=== PATIENT | female | born 1935 | race Caucasian/White ===

== ENCOUNTER → 2017-11-08 08:14 | Outpatient (CLI) | payer OTHER, SELFPAY ==
[2017-11-08 09:52] LABS: Alanine Aminotransferase 32 IU/L (9-52); Albumin 4.2 g/dL (3.5-5.0); Albumin Globulin Ratio 1.4 (1.0-2.8); Alkaline Phosphatase 81 U/L (38-126); Aspartate Aminotransferase 23 IU/L (14-36); BUN Creatinine Ratio 22.2 (6-22); Bilirubin Total 0.9 mg/dL (0.2-1.3); Blood Urea Nitrogen 20 mg/dL (7-17); Calcium 9.5 mg/dL (8.4-10.2); Carbon Dioxide 28 mmol/L (22-32); Chloride 104 mmol/L (98-107); Cholesterol 160 mg/dL (140-199); Estimated Glomerular Filt Rate > 60.0 mL/min (>60); Globulin 3.1 g/dL (1.7-4.1); Glucose 101 mg/dL (80-110); HDL Cholesterol 50 mg/dL (40-60); HEMOLYSIS < 15 (0-50); LDL Cholesterol Calculated 84 mg/dL (<100); Potassium 4.5 mmol/L (3.4-5.1); Sodium 143 mmol/L (137-145); Total Protein 7.3 g/dL (6.3-8.2); Triglycerides 129 mg/dL (35-150)
== END ==
PROVIDERS: Visit Provider Internal Medicine
DX: R10.13 Epigastric pain (principal); I10 Essential (primary) hypertension; E78.00 Pure hypercholesterolemia, unspecified
CPT/HCPCS: 80053; 80061; 86677

== ENCOUNTER → 2018-09-06 08:48 | Outpatient (CLI) | payer OTHER, SELFPAY ==
--- NOTE | 2018-09-06 09:15 | DI.CT.S_ITS ---
PROCEDURE: CT ABDOMEN PELVIS W CON INDICATIONS: Rectal bleeding TECHNIQUE: After the administration of oral and intravenous contrast, 5 mm thick sections acquired from the diaphragms to the symphysis. 5 mm thick coronal and sagittal reformats were performed. For radiation dose reduction, the following was used: automated exposure control, adjustment of mA and/or kV according to patient size. COMPARISON: [facility], CT, ABDOMEN/PELVIS WITH CONTRAST, 03/09/2017, 9:31. FINDINGS: Image quality: Excellent. ABDOMEN: Lung bases: Lung bases are clear. Heart size is normal. Solid organs: Liver is normal in size. There is mild hepatic steatosis. Focal calcification inferior right hepatic lobe is seen suggestive of calcified granuloma. Gallbladder is within normal limits. Biliary system is non-dilated. Pancreas enhances normally. Spleen is normal in size and enhancement. No adrenal nodules. Kidneys are normal in size and enhancement, without hydronephrosis. Peritoneum and bowel: Stomach, small bowel, and colon loops are normal in caliber and wall thickness. There is questionable rectal wall thickening. No perirectal fat stranding. No obvious rectal wall mass is seen. No free fluid or air. There is a small hiatal hernia. Nodes and vessels: No retroperitoneal or mesenteric adenopathy. Aorta and inferior vena cava are normal in caliber. Miscellaneous: Small supraumbilical hernia containing fat only is seen. PELVIS: Genitourinary: Bladder wall thickness is normal. Miscellaneous: No inguinal hernias or adenopathy. Bones: No suspicious bony lesions. No vertebral body compression fractures. IMPRESSION: #1. Suggestion of rectal wall thickening, underlying rectal wall mass cannot be excluded. Direct visualization and clinical correlation is recommended given patient's history of rectal bleeding. #2. No other area of bowel wall thickening. No free fluid or free air. Small height hernia. #3. No abdominal or pelvic lymphadenopathy. Hepatic steatosis. Dictated by: Dane Britton M.D. on 09/06/2018 at 12:30 Approved by: Dane Britton M.D. on 09/06/2018 at 12:34
== END ==
PROVIDERS: Visit Provider Internal Medicine
DX: K62.5 Hemorrhage of anus and rectum (principal); K44.9 Diaphragmatic hernia without obstruction or gangrene; K76.0 Fatty (change of) liver, not elsewhere classified
CPT/HCPCS: 74177; Q9967

== ENCOUNTER → 2018-12-17 07:38 | Outpatient (CLI) | payer OTHER, SELFPAY ==
--- NOTE | 2018-12-17 08:48 | PM.TREADMILL ---
Cardiac Stress Test Report Referral & Results Date Patient Seen: 12/17/18 Time Patient Seen: 08:30 Requesting provider: Sophia Charles Indication: Chest discomfort Rest ECG: NSR Procedure Note: Today following both written and verbal informed consent the patient was exercised according to a standard Melecio protocol patient went for a total of 3 minutes 19 seconds achieving a maximum heart rate of 132 maximum systolic blood pressure of 182. This is approximately 4.6 METS. Exercise was terminated at this point because of dyspnea. Patient was also given Cardiolite through a previously started Hep-Lock IV by the database software technician approximately 1 minute prior to the cessation of exercise. ST deviations of 3 mm in multiple leads. Occasional PVCs Impression: High probability for ischemia. Summers treadmill score of -12 correlated with 65% survival over 5 years. Will await perfusion imaging. Please note: Actual ECG tracings can be found in the PACS system.
--- NOTE | 2018-12-17 08:51 | P.PCN_ITS ---
Cardiac Stress Test Report Referral & Results Date Patient Seen: 12/17/18 Time Patient Seen: 08:30 Requesting provider: Sophia Charles Indication: Chest discomfort Rest ECG: NSR Procedure Note: Today following both written and verbal informed consent the patient was exercised according to a standard Melecio protocol patient went for a total of 3 minutes 19 seconds achieving a maximum heart rate of 132 maximum systolic blood pressure of 182. This is approximately 4.6 METS. Exercise was terminated at this point because of dyspnea. Patient was also given Cardiolite through a previously started Hep-Lock IV by the nuclear medical tech approximately 1 minute prior to the cessation of exercise. ST deviations of 3 mm in multiple leads. Occasional PVCs Impression: High probability for ischemia. Summers treadmill score of -12 correlated with 65% survival over 5 years. Will await perfusion imaging. Please note: Actual ECG tracings can be found in the PACS system.
--- NOTE | 2018-12-18 14:10 | DI.NM.S_ITS ---
DATE OF SERVICE: 12/17/2018 PROCEDURE: Exercise perfusion study. INDICATIONS: Chest pain, jaw pain with underlying hypertension, hyperlipidemia. RADIOPHARMACEUTICAL: 26.1 mCi technetium-99m Myoview IV was injected at stress and 24.2 mCi technetium-99m Myoview IV was injected at rest. CARDIAC STRESS: Patient underwent exercise perfusion study under the supervision of an attending staff. She walked on Melecio protocol for total of 3 minutes 19 seconds achieved 96% of target heart rate, and normal blood pressure response. Patient developed dyspnea. There was enhance chronotropic response. Baseline EKG revealed sinus rhythm and baseline up to 0.5 mm slightly horizontal as well as slightly downsloping ST depression in inferiorly leads and lead V3 to V6. During stress, baseline ST-segment depression got more pronounced, up to 2 mm. No significant sustained arrhythmias seen. Intraventricular conduction delay seen. RAW DATA: There was adequate myocardial uptake. GATED STUDY: Stress LV ejection fraction 83%. No obvious wall motion abnormalities. Resting end-diastolic volume is 74 mL. No transient ischemic dilatation. TID ratio is 0.7, which is within normal limits. Lung/heart ratio is 0.22, which is within normal limits. MYOCARDIAL PERFUSION SCAN: Stress supine, resting supine images were compared to each other. Stress and resting supine images revealed normal myocardial perfusion. CONCLUSION: This is a normal myocardial perfusion study. Patient has poor exercise tolerance. She developed dyspnea during exertion. There was enhance chronotropic response. She achieved 4.6 METs of workload. Functional aerobic impairment positive 20%. She has baseline EKG changes as stated above which got more pronounced during exercise. No significant sustained arrhythmias seen. Correlate clinically. Tea Gould - GENE/zenon/ doc#: [id number]/job#: [id number] dd: 12/18/2018 12:57:00 dt: 12/18/2018 14:02:00 DICTATING MD/COPIES TO: Bebe Fatima MD COPIES MNE: ZHANE
== END ==
PROVIDERS: PCP Internal Medicine; Visit Provider Student in an Organized Health Care Education/Training Program
DX: R07.89 Other chest pain (principal); R68.84 Jaw pain; I10 Essential (primary) hypertension; E78.5 Hyperlipidemia, unspecified
CPT/HCPCS: 78452; 93016; 93017; 93018; A9502

== ENCOUNTER → 2018-12-30 07:41 | Outpatient (CLI) | payer OTHER, SELFPAY ==
--- NOTE | 2018-12-30 07:56 | DI.CT.S_ITS ---
PROCEDURE: CT CHEST WO CON INDICATIONS: COUGH TECHNIQUE: Noncontrast 5 mm thick sections acquired from the pulmonary apices to the posterior costophrenic angles. 1 mm lung window, 5 mm thick coronal and sagittal and 7 mm axial MIP reformats were then acquired. For radiation dose reduction, the following was used: automated exposure control, adjustment of mA and/or kV according to patient size. COMPARISON: None. FINDINGS: Image quality: Excellent. Lungs and pleura: No acute air space opacities. No pleural effusions or pneumothorax. Central and peripheral airways are patent and normal in caliber. Note is made of mild prominence of the soft tissues surrounding the bronchi consistent with mild chronic bronchitis. Mediastinum: Heart size is normal. No pericardial effusion. No mediastinal adenopathy by size criteria. Thoracic aorta and central pulmonary arteries are normal in size. Esophagus is normal in caliber. No hiatal hernia. Bones and chest wall: No suspicious bony lesions. No vertebral body compression fractures. No axillary or supraclavicular adenopathy by size criteria. Thyroid gland is not well-seen by this noncontrast CT technique. Abdomen: Visualized upper abdominal solid organs and bowel loops appear normal in the absence of contrast. IMPRESSION: Mild chronic bronchitis, no underlying evidence of alveolitis or pulmonary fibrosis, or bronchiectasis. Dictated by: Fernando Chavez M.D. on 12/30/2018 at 10:32 Approved by: Fernando Chavez M.D. on 12/30/2018 at 10:34
[2018-12-30 08:37] LABS: Alanine Aminotransferase 19 IU/L (9-52); Aspartate Aminotransferase 25 IU/L (14-36); BUN Creatinine Ratio 25.6 (6-22); Blood Urea Nitrogen 23 mg/dL (7-17); Calcium 9.4 mg/dL (8.4-10.2); Carbon Dioxide 27 mmol/L (22-32); Chloride 107 mmol/L (98-107); Cholesterol 150 mg/dL (140-199); Estimated Glomerular Filt Rate 59.8 mL/min (>60); Glucose 98 mg/dL (80-110); HDL Cholesterol 42 mg/dL (40-60); HEMOLYSIS < 15 (0-50); LDL Cholesterol Calculated 85 mg/dL (<100); Potassium 4.4 mmol/L (3.4-5.1); Sodium 140 mmol/L (137-145); Triglycerides 115 mg/dL (35-150)
== END ==
PROVIDERS: PCP Internal Medicine; Visit Provider Internal Medicine
DX: J42 Unspecified chronic bronchitis (principal); R05 Cough; I10 Essential (primary) hypertension; E78.00 Pure hypercholesterolemia, unspecified
CPT/HCPCS: 36415; 71250; 80048; 80061; 84450; 84460

== ENCOUNTER → 2019-03-11 08:01 | Outpatient (CLI) | payer OTHER, SELFPAY ==
[2019-03-11 10:53] LABS: Alanine Aminotransferase 15 IU/L (9-52); Aspartate Aminotransferase 24 IU/L (14-36); BUN Creatinine Ratio 27.8 (6-22); Blood Urea Nitrogen 25 mg/dL (7-17); Calcium 9.6 mg/dL (8.4-10.2); Carbon Dioxide 32 mmol/L (22-32); Chloride 103 mmol/L (98-107); Cholesterol 149 mg/dL (140-199); Estimated Glomerular Filt Rate 59.8 mL/min (>60); Glucose 90 mg/dL (80-110); HDL Cholesterol 43 mg/dL (40-60); HEMOLYSIS < 15 (0-50); LDL Cholesterol Calculated 69 mg/dL (<100); Potassium 4.3 mmol/L (3.4-5.1); Sodium 141 mmol/L (137-145); Triglycerides 186 mg/dL (35-150)
== END ==
PROVIDERS: PCP Internal Medicine; Visit Provider Internal Medicine
DX: I10 Essential (primary) hypertension (principal); E78.00 Pure hypercholesterolemia, unspecified
CPT/HCPCS: 36415; 80048; 80061; 84450; 84460

== ENCOUNTER → 2019-12-16 08:21 | Outpatient (CLI) | payer MEDICARE, SELFPAY ==
[2019-12-16 08:57] LABS: Blood Urea Nitrogen 26 mg/dL (7-17); Estimated Glomerular Filt Rate 50.5 mL/min (>60)
--- NOTE | 2019-12-16 09:25 | DI.CT.S_ITS ---
P S. ROCEDURE: CT ABDOMEN PELVIS W CON INDICATIONS: Abnormal findings on diagnostic imaging of other abd regions prior cat scan TECHNIQUE: After the administration of oral and intravenous contrast, 5 mm thick sections acquired from the diaphragms to the symphysis. 5 mm thick coronal and sagittal reformats were performed. For radiation dose reduction, the following was used: automated exposure control, adjustment of mA and/or kV according to patient size. COMPARISON: [facility], CT, CT CHEST WO CON, 12/30/2018, 8:37. [facility], CT, CT ABDOMEN PELVIS W CON, 09/06/2018, 9:40. [facility], CT, ABDOMEN/PELVIS WITH CONTRAST, 03/09/2017, 9:31. FINDINGS: Image quality: Excellent. ABDOMEN: Lung bases: Lung bases are clear. Heart size is normal. Small hiatal hernia. This Solid organs: Liver is normal in size and enhancement. Diffusely decreased hepatic attenuation as before suggestive of hepatic steatosis. Gallbladder is unremarkable. Biliary system is non-dilated. Pancreas enhances normally. There is a curvilinear hypodensity across the posterior, lateral margin of the spleen measuring approximately 2.6 cm in length and 6 mm thick. No adjacent perisplenic hematoma or inflammatory changes. Spleen is normal in size and enhancement. No adrenal nodules. Kidneys are normal in size and enhancement, without hydronephrosis. Peritoneum and bowel: Stomach, small bowel, and colon loops are normal in caliber and wall thickness. No free fluid or air. Previously described rectal wall thickening is not as conspicuous. Nodes and vessels: No retroperitoneal or mesenteric adenopathy. Scattered atherosclerotic calcifications of the abdominal aorta. Aorta and inferior vena cava are normal in caliber. There is narrowing of the origin of the celiac trunk without high-grade stenosis. Miscellaneous: No ventral hernias. PELVIS: Genitourinary: Bladder wall thickness is normal for degree of distention.. Miscellaneous: No inguinal hernias or adenopathy. Bones: No suspicious bony lesions. No acute vertebral body compression fractures. Multilevel spondylitic changes throughout the imaged spine. IMPRESSION: 1. No curvilinear splenic hypodensity without adjacent perisplenic fluid collections, hematomas, or inflammatory stranding. Findings may represent an age indeterminate splenic laceration, especially if there has been history of trauma. Recommend correlation with clinical history and examination for left-sided pain. 2. Hepatic steatosis. 3. Small hiatal hernia. 4. No evidence for bowel obstruction or acute inflammatory changes Dictated by: Freeman Hernandez M.D. on 12/16/2019 at 11:10 Approved by: Freeman Hernandez M.D. on 12/16/2019 at 12:14
== END ==
PROVIDERS: PCP Internal Medicine; Referring Provider Internal Medicine; Visit Provider Internal Medicine
DX: R93.5 Abnormal findings on diagnostic imaging of other abdominal regions, including retroperitoneum (principal); K59.01 Slow transit constipation; K44.9 Diaphragmatic hernia without obstruction or gangrene; K76.0 Fatty (change of) liver, not elsewhere classified
CPT/HCPCS: 36415; 74177; 82565; 84520; Q9967

== ENCOUNTER → 2020-03-10 18:33 | Outpatient (ROUT) | payer MEDICARE, SELFPAY | PROVIDERS: PCP Internal Medicine; Visit Provider Internal Medicine | DX: N39.0 Urinary tract infection, site not specified (principal) | CPT/HCPCS: 87086 ==

== ENCOUNTER → 2020-03-11 08:09 | Outpatient (CLI) | payer MEDICARE, SELFPAY ==
[2020-03-11 09:15] LABS: Alanine Aminotransferase 17 IU/L (<35); Albumin 3.9 g/dL (3.5-5.0); Albumin Globulin Ratio 1.3 (1.0-2.8); Alkaline Phosphatase 83 U/L (38-126); Aspartate Aminotransferase 25 IU/L (14-36); Bilirubin Total 0.8 mg/dL (0.2-1.3); Blood Urea Nitrogen 23 mg/dL (7-17); Calcium 9.1 mg/dL (8.4-10.2); Carbon Dioxide 31 mmol/L (22-32); Chloride 106 mmol/L (98-107); Cholesterol 150 mg/dL (140-199); Estimated Glomerular Filt Rate 55.4 mL/min (>60); Globulin 3.1 g/dL (1.7-4.1); Glucose 98 mg/dL (80-110); HDL Cholesterol 42 mg/dL (40-60); HEMOLYSIS < 15 (0-50); LDL Cholesterol Calculated 82 mg/dL (<100); Potassium 4.4 mmol/L (3.4-5.1); Sodium 141 mmol/L (137-145); Triglycerides 132 mg/dL (35-150)
== END ==
PROVIDERS: PCP Internal Medicine; Referring Provider Internal Medicine; Visit Provider Internal Medicine
DX: I10 Essential (primary) hypertension (principal); E78.00 Pure hypercholesterolemia, unspecified
CPT/HCPCS: 36415; 80053; 80061

== ENCOUNTER → 2020-08-16 09:56 | Outpatient (CLI) | payer MEDICARE, SELFPAY ==
--- NOTE | 2020-08-16 09:57 | DI.RAD.S_ITS ---
PROCEDURE: XR LUMBAR SPINE 2-3V INDICATIONS: low back pain TECHNIQUE: 3 views of the lumbar spine were acquired. COMPARISON: None. FINDINGS: Bones: 5 [id number] vertebrae are present. There is mild rightward scoliosis of thoracolumbar spine centered at T12-L1 level with compensatory mild rid levoscoliosis of lower lumbar spine centered at L4 level. Degenerative endplate changes are noted throughout lumbar spine. No vertebral body compression fractures. No suspicious bony lesions. Soft tissues: Overlying bowel gas pattern is normal. No suspicious soft tissue calcifications. 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 No acute compression fracture or spondylolisthesis. Dictated by: Dane Britton M.D. on 08/16/2020 at 10:19 Approved by: Dane Britton M.D. on 08/16/2020 at 10:31
== END ==
PROVIDERS: PCP Family Medicine; Referring Provider Family Medicine; Visit Provider Family Medicine
DX: M54.5 Low back pain (principal); M51.36 Other intervertebral disc degeneration, lumbar region; M41.9 Scoliosis, unspecified; G89.29 Other chronic pain
CPT/HCPCS: 72100

== ENCOUNTER 2020-10-22 08:15 | Outpatient (RCR) | payer MEDICARE, SELFPAY ==
--- NOTE | 2020-10-04 16:00 | PT.OIE ---
Current Diagnoses Sciatica, left side (10/04/20) Low back pain (10/04/20) Past Medical History (Last Reviewed 08/16/20 @ 09:48 by Sven Mattson DO) Allergies (~1989) Cataracts, bilateral Chicken pox (~1948) Chronic back pain Chronic cough (~2019) Endometriosis (~1969) Fractures Frequent UTI (~2016) Hearing loss History of recurrent ear infection History of squamous cell carcinoma History of urinary incontinence Hyperlipidemia Hypertension (~1994) Measles (~1939) Multiple sclerosis (~1970) Mumps (~1959) Preventative health care Reactive airway disease Recurrent sinusitis Squamous cell carcinoma (~2009) Vertigo Past Surgical History (Last Updated 08/15/20 @ 20:23 by Fadumo Cagle) Anesthesia History of bladder suspension procedure (~1983) History of removal of cyst (~1977) History of stress test (~2018) History of surgical removal of squamous cell carcinoma of skin of yarsanism region (~2009) Visit Care Team Role Provider Type Sven Mattson DO Attending Provider Physician Primary Care Provider Referring Provider Specialty: [facility] Address: [address] [place] [address], [facility] Email: [email or web address] Physical Therapy Initial Evaluation PT-OP-A Visit Information Start: 10/01/20 07:17 Freq: Status: Active Protocol: Document 10/04/20 08:16 MB (Rec: 10/04/20 08:34 MB [id number]) Out-Patient Physical Therapy Visit Information Visit Information Visit Type Initial Evaluation Visit Note [employer] Pt goes by Ana Visit Start Time 08:16 Visit Stop Time 08:52 Total Visit Minutes 36 Visit Number 1 Evaluation Information Evaluation Date 10/04/20 PT-OP-B Current Condition Start: 10/01/20 07:17 Freq: Status: Active Protocol: Document 10/04/20 08:16 MB (Rec: 10/04/20 08:34 MB [id number]) Current Condition History of Current Condition Onset Date Two months or more Current Complaints Back and leg pain History of Current Condition Pt reports back pain when standing greater than 30 minutes and left leg pain that wakes her up at night every two hours. If she gets up, it goes away. Her left hip bothers her a little when she walks but it does not keep her from walking. Pt had a shot in the side of her left hip in the past for pain. Pt has a chronic cough and history of constipation. Her history has reactive airway disease in it. 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 She takes over the counter allergy medication and BP medication. The chiropractor does not pop her and it is helping her neck a lot. When reviewing medical record, PT notes MS and pt states that she does not have MS. She has history of leg and eye trouble at age 45 for 1 year. She got bit by a bug and one of her legs swelled up. She stated talking B12 and vitamin E and getting rest and she got better about a year. Pt has been going to a chiropractor for a couple of months. It has helped her walking but not her pains. She is going about every 6 weeks. Pt has a history of left arm fracture x2 and no surgeries. She had two falls. She has not had any falls recently. Pt rates pain as 3/10 left arm pain, 5/10 left anterolateral and posterior flank and back pain. 5/10 pain that goes down the lola and postero lateral left leg. Pt is sleeping on either side with 1 pillow between legs. She sleeps alone and her mattress is 5 years old. Pt denies numbness and tingling down her legs and she has awakened with numbness in her left hand. Pt is not falling. She is feeling more imbalanced outside. Prior Treatments and Tests X-ray lumbar spine 08/16/20: DDD throughout lumbar spine and S -shaped scoliosis Treatment Goals Patient/Caregiver Goals To sleep through the night and not wake up with pain PT-OP-C Subjective Start: 10/01/20 07:17 Freq: Status: Active Protocol: Document 10/04/20 08:16 MB (Rec: 10/04/20 08:34 MB [id number]) OP-PT Subjective Patient Comments Patient Comments See history of current condition PT-OP-G Mobility & Gait Start: 10/01/20 07:17 Freq: Status: Active Protocol: Document 10/04/20 08:16 MB (Rec: 10/04/20 16:00 MB [id number]) OP Gait Assessment Gait Gait Assistance Required: Independent Distance (Feet) 50 Able to Maintain Weight Bearing Status Yes During Gait Assistive Devices Assistive Device None Orthotic/Prosthetic Devices or Brace: No Gait Deviations General Gait Pattern Antalgic,Decreased Stride Length,Narrow Based Gait Factors Limiting Gait Function Factors Limiting Gait Function Limited Range of Motion,Pain, Poor Balance Comments Gait Comments Pt presents with very limited left pelvic movement with gait , left iliac crest is higher with gait and posture assessment, narrow BETTY, decreased right arm swing PT-OP-J Posture/Palpation/Skin Start: 10/01/20 07:17 Freq: Status: Active Protocol: Document 10/04/20 08:16 MB (Rec: 10/04/20 16:00 MB [id number]) Posture Evaluation Comments Posture Comments Standing with her shoes on: Elevated shoulders, forward head, rounded shoulders, Dowager's hump, anterior tilt pelvis, right shoulder lower than the left, left scapula elevated and protracted compared to the right, some spinal curvature changes, increased Jordan angle right foot, supination right foot, increased B knee valgus with thigh approximation, left iliac crest higher than the right Skin Assessment Other Assessments Skin Assessment Comments Mild edema LLE that is concerning to patient PT-OP-M Strength Start: 10/01/20 07:17 Freq: Status: Active Protocol: Document 10/04/20 08:16 MB (Rec: 10/04/20 16:00 MB [id number]) Hip Strength Hip Manual Muscle Testing Left Flexion (L2) 4 Good Abduction 3+ Fair+ Right Flexion (L2) 4 Good Abduction 4 Good Knee Strength Knee Manual Muscle Testing Left Flexion (S2) 3+ Fair+ Extension (L3) 4 Good Right Flexion (S2) 4 Good Extension (L3) 4 Good Ankle/Foot Strength Ankle and Foot Manual Muscle Testing Left Dorsiflexion (L4) 4 Good Right Dorsiflexion (L4) 4 Good Toe Strength Toe Manual Muscle Testing Left Great Toe Extension 4 Good Right Great Toe Extension 4 Good PT-OP-Q Treatments Start: 10/01/20 07:17 Freq: Status: Active Protocol: Document 10/04/20 08:16 MB (Rec: 10/04/20 15:45 MB [id number]) Self-Care/Home Management Treatment Education Other Education Use of towel roll in pillow for cervical support. Pillow under legs in supine and pillow long ways between knees to ankles and between arms if side lying. Log roll technique and practice for this today. Benefits of wearing her compression hose for LLE edema. Plan for PT: alignment, postural training, body mechanics, balance, strengthening, flexibiliy and manual work PT-OP-T Assessment and Plan Start: 10/01/20 07:17 Freq: Status: Active Protocol: Document 10/04/20 08:16 MB (Rec: 10/04/20 16:00 MB [id number]) Physical Therapy Assessment Rehab Potential Rehabilitation Potential Fair Evaluation Complexity Number of Personal Factors/Comorbidities 1-2 Number of Body Systems Impaired 3 Clinical Presentation at Evaluation Evolving Impairments Impairments Activity Tolerance,Balance, Functional Activities, Functional Mobility,Gait, Integument,Pain,Posture,Soft Tissue Mobility,Strength Other Impairments Personal factors include advanced change and spinal changes. Body systems affected include musculoskeletal, neuromuscular, integumentary. Her clinical presentation is evolving in setting of advancing degenerative changes with age. Other Concerns Fall Risk Yes, though pt denies falls Goals 4 Code Enforcement Supervisor Goal (LTG) Pt will perform progressive HEP with I including pelvic realignment, postural, flexibility, self-myofascial release, breathing, balance and strengthening exercises to decrease pain and improve mobility and strength by . LTG Duration 8 weeks 3 Code Enforcement Supervisor Goal (LTG) Pt will present with an improvement in B hip flexion, abduction and knee flexion and abduction strength to 5/5 to improve gait and functional strength by 12/04/20. LTG Duration 8 weeks 2 Custodial Goal (LTG) Pt will report being able to bake cookies for 30 minutes with at least 75% improvement in back pain by 12/04/20. LTG Duration 8 weeks 1 Custodial Goal (LTG) Pt will perform WNLs on a standardized balance test to decrease fall risk by 12/04/20. LTG Duration 8 weeks Assessment Summary Assessment Pt is an 84 y/o female presenting with spinal changes per lumbar x-ray, postural changes per observation today, LE weakness and changes in balance and gait. Pt reports history of pain, LUE fractures and that she is receiving critical care technician for her neck and back. 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 Pt reports pain that awakens her at night and this is her biggest concern today. Pt's spinal and postural changes and weakness are contributary to her pain. She will benefit from PT to improve flexiblity, alignment, breathing, strength and balance. She sees her chiropractor tomorrow and unsure if this will impact PT intervention. Pt states that she has a lot of company in November and PT course may need to be through October only. Physical Therapy Plan Frequency and Duration Frequency of Treatment 2x/Week Duration of Treatment 8 weeks Plan of Care Start Date 10/04/20 Plan of Care End Date 12/06/20 Therapeutic Interventions Therapeutic Interventions Balance Training,Canalithic Repositioning,Coordination Training,Gait Training,Home Exercise Program,Joint Mobilizations,Manual Therapy, Neuromuscular Re-education, Patient/Caregiver Education, Self-Care/Home Management,Soft Tissue Mobilization, Therapeutic Activities, Therapeutic Exercises Modalities Cold Pack/Ice Massage,Hot Packs Next Visit Focus/Plan Next Note Type Treatment Note Next Visit Plan Pelvic realignment exercises, thoracic rotation in sitting, flexibility exercises, diaphragm breathing
--- NOTE | 2020-10-04 16:00 | PT.OPPOC ---
Physical, Occupational & Speech Therapy At [facility] Current Diagnoses Sciatica, left side (10/04/20) Low back pain (10/04/20) Visit Care Team Role Provider Type Sven Mattson DO Attending Provider Physician Primary Care Provider Referring Provider Specialty: [facility] Practice Address: [address] [place] [address], [facility] Email: [email or web address] Plan Of Care PT-OP-T Assessment and Plan Start: 10/01/20 07:17 Freq: Status: Active Protocol: Document 10/04/20 08:16 MB (Rec: 10/04/20 16:00 MB [id number]) Physical Therapy Assessment Rehab Potential Rehabilitation Potential Fair Evaluation Complexity Number of Personal Factors/Comorbidities 1-2 Number of Body Systems Impaired 3 Clinical Presentation at Evaluation Evolving Impairments Impairments Activity Tolerance,Balance, Functional Activities, Functional Mobility,Gait, Integument,Pain,Posture,Soft Tissue Mobility,Strength Other Impairments Personal factors include advanced change and spinal changes. Body systems affected include musculoskeletal, neuromuscular, integumentary. Her clinical presentation is evolving in setting of advancing degenerative changes with age. Other Concerns Fall Risk Yes, though pt denies falls Goals 4 Intermediate Goal (LTG) Pt will perform progressive HEP with I including pelvic realignment, postural, flexibility, self-myofascial release, breathing, balance and strengthening exercises to decrease pain and improve mobility and strength by . LTG Duration 8 weeks 3 Lsw Goal (LTG) Pt will present with an improvement in B hip flexion, abduction and knee flexion and abduction strength to 5/5 to improve gait and functional strength by 12/04/20. LTG Duration 8 weeks 2 Lsw Goal (LTG) Pt will report being able to bake cookies for 30 minutes with at least 75% improvement in back pain by 12/04/20. LTG Duration 8 weeks 1 Lsw Goal (LTG) Pt will perform WNLs on a standardized balance test to decrease fall risk by 12/04/20. LTG Duration 8 weeks Assessment Summary Assessment Pt is an 84 y/o female presenting with spinal changes per lumbar x-ray, postural changes per observation today, LE weakness and changes in balance and gait. Pt reports history of pain, LUE fractures and that she is receiving managed care analyst for her neck and back. pharmacist critical care has helped her neck and walking but not her current reports of left lateral trunk and LLE pain. Pt reports pain that awakens her at night and this is her biggest concern today. Pt's spinal and postural changes and weakness are contributary to her pain. She will benefit from PT to improve flexiblity, alignment, breathing, strength and balance. She sees her chiropractor tomorrow and unsure if this will impact PT intervention. Pt states that she has a lot of company in November and PT course may need to be through October only. Physical Therapy Plan Frequency and Duration Frequency of Treatment 2x/Week Duration of Treatment 8 weeks Plan of Care Start Date 10/04/20 Plan of Care End Date 12/06/20 Therapeutic Interventions Therapeutic Interventions Balance Training,Canalithic Repositioning,Coordination Training,Gait Training,Home Exercise Program,Joint Mobilizations,Manual Therapy, Neuromuscular Re-education, Patient/Caregiver Education, Self-Care/Home Management,Soft Tissue Mobilization, Therapeutic Activities, Therapeutic Exercises Modalities Cold Pack/Ice Massage,Hot Packs Next Visit Focus/Plan Next Note Type Treatment Note Next Visit Plan Pelvic realignment exercises, thoracic rotation in sitting, flexibility exercises, diaphragm breathing Plan of Care Dates Plan of Care Start Date 10/04/20 Plan of Care End Date 12/06/20 Electronically Signed by: Denae Melendrez PT 10/04/20 1600 Please Sign and Return: I have reviewed this Plan of Care and certify that the skilled therapy services above are required to meet the patient?s needs. Physician Signature Date Printed Name and Credentials Clinical Instructor Signature Printed Name and Credentials
--- NOTE | 2020-10-07 08:13 | PT.OTN ---
Current Diagnoses Sciatica, left side (10/07/20) Low back pain (10/07/20) Physical Therapy Treatment Note PT-OP-A Visit Information Start: 10/01/20 07:17 Freq: Status: Active Protocol: Document 10/07/20 07:32 MB (Rec: 10/07/20 08:07 MB [id number]) Out-Patient Physical Therapy Visit Information Visit Information Visit Type Treatment Note Visit Note [employer] Medicare, $ 40 copay Pt goes by Ana Visit Start Time 07:32 Visit Stop Time 08:12 Total Visit Minutes 40 Visit Number 2 PT-OP-B Current Condition Start: 10/01/20 07:17 Freq: Status: Active Protocol: Document 10/04/20 08:16 MB (Rec: 10/04/20 08:34 MB [id number]) Current Condition History of Current Condition Onset Date Two months or more Current Complaints Back and leg pain History of Current Condition Pt reports back pain when standing greater than 30 minutes and left leg pain that wakes her up at night every two hours. If she gets up, it goes away. Her left hip bothers her a little when she walks but it does not keep her from walking. Pt had a shot in the side of her left hip in the past for pain. Pt has a chronic cough and history of constipation. Her history has reactive airway disease in it. 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 She takes over the counter allergy medication and BP medication. The chiropractor does not pop her and it is helping her neck a lot. When reviewing medical record, PT notes MS and pt states that she does not have MS. She has history of leg and eye trouble at age 45 for 1 year. She got bit by a bug and one of her legs swelled up. She stated talking B12 and vitamin E and getting rest and she got better about a year. Pt has been going to a chiropractor for a couple of months. It has helped her walking but not her pains. She is going about every 6 weeks. Pt has a history of left arm fracture x2 and no surgeries. She had two falls. She has not had any falls recently. Pt rates pain as 3/10 left arm pain, 5/10 left anterolateral and posterior flank and back pain. 5/10 pain that goes down the lola and postero lateral left leg. Pt is sleeping on either side with 1 pillow between legs. She sleeps alone and her mattress is 5 years old. Pt denies numbness and tingling down her legs and she has awakened with numbness in her left hand. Pt is not falling. She is feeling more imbalanced outside. 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 She only wants to do the six appointments. PT-OP-G Mobility & Gait Start: 10/01/20 07:17 Freq: Status: Active Protocol: Document 10/04/20 08:16 MB (Rec: 10/04/20 16:00 MB [id number]) OP Gait Assessment Gait Gait Assistance Required: Independent Distance (Feet) 50 Able to Maintain Weight Bearing Status Yes During Gait Assistive Devices Assistive Device None Orthotic/Prosthetic Devices or Brace: No Gait Deviations General Gait Pattern Antalgic,Decreased Stride Length,Narrow Based Gait Factors Limiting Gait Function Factors Limiting Gait Function Limited Range of Motion,Pain, Poor Balance Comments Gait Comments Pt presents with very limited left pelvic movement with gait , left iliac crest is higher with gait and posture assessment, narrow BETTY, decreased right arm swing PT-OP-J Posture/Palpation/Skin Start: 10/01/20 07:17 Freq: Status: Active Protocol: Document 10/04/20 08:16 MB (Rec: 10/04/20 16:00 MB [id number]) Posture Evaluation Comments Posture Comments Standing with her shoes on: Elevated shoulders, forward head, rounded shoulders, Dowager's hump, anterior tilt pelvis, right shoulder lower than the left, left scapula elevated and protracted compared to the right, some spinal curvature changes, increased Jordan angle right foot, supination right foot, increased B knee valgus with thigh approximation, left iliac crest higher than the right Skin Assessment Other Assessments Skin Assessment Comments Mild edema LLE that is concerning to patient PT-OP-M Strength Start: 10/01/20 07:17 Freq: Status: Active Protocol: Document 10/04/20 08:16 MB (Rec: 10/04/20 16:00 MB [id number]) Hip Strength Hip Manual Muscle Testing Left Flexion (L2) 4 Good Abduction 3+ Fair+ Right Flexion (L2) 4 Good Abduction 4 Good Knee Strength Knee Manual Muscle Testing Left Flexion (S2) 3+ Fair+ Extension (L3) 4 Good Right Flexion (S2) 4 Good Extension (L3) 4 Good Ankle/Foot Strength Ankle and Foot Manual Muscle Testing Left Dorsiflexion (L4) 4 Good Right Dorsiflexion (L4) 4 Good Toe Strength Toe Manual Muscle Testing Left Great Toe Extension 4 Good Right Great Toe Extension 4 Good PT-OP-Q Treatments Start: 10/01/20 07:17 Freq: Status: Active Protocol: Document 10/07/20 07:32 MB (Rec: 10/07/20 08:07 MB [id number]) Therapeutic Exercises Supine Exercises Pelvic realignment exercises Side bilateral Comments 5 reps, 3 sec hold all exercises Sitting Exercises Thoracic rotation in sitting Side bilateral Comments End-range breaths to move ribs , 2 reps each side Standing Exercises Racquet ball massage Standing Exercise Name Intrascapular massage, glute massage, infraspinatus MWM PT-OP-T Assessment and Plan Start: 10/01/20 07:17 Freq: Status: Active Protocol: Document 10/07/20 07:32 MB (Rec: 10/07/20 08:07 MB [id number]) Physical Therapy Assessment Rehab Potential Rehabilitation Potential Fair Evaluation Complexity Number of Personal Factors/Comorbidities 1-2 Number of Body Systems Impaired 3 Clinical Presentation at Evaluation Evolving Impairments Impairments Activity Tolerance,Balance, Functional Activities, Functional Mobility,Gait, Integument,Pain,Posture,Soft Tissue Mobility,Strength Other Impairments Personal factors include advanced change and spinal changes. Body systems affected include musculoskeletal, neuromuscular, integumentary. Her clinical presentation is evolving in setting of advancing degenerative changes with age. Other Concerns Fall Risk Yes, though pt denies falls Goals 4 [facility] Goal (LTG) Pt will perform progressive HEP with I including pelvic realignment, postural, flexibility, self-myofascial release, breathing, balance and strengthening exercises to decrease pain and improve mobility and strength by . LTG Duration 8 weeks 3 Car Worker Goal (LTG) Pt will present with an improvement in B hip flexion, abduction and knee flexion and abduction strength to 5/5 to improve gait and functional strength by 12/04/20. LTG Duration 8 weeks 2 Car Worker Goal (LTG) Pt will report being able to bake cookies for 30 minutes with at least 75% improvement in back pain by 12/04/20. LTG Duration 8 weeks 1 Car Worker Goal (LTG) Pt will perform WNLs on a standardized balance test to decrease fall risk by 12/04/20. LTG Duration 8 weeks Assessment Summary Assessment Initiated pelvic realignment, thoracic flexibility and self- massage today and pt responds well initially. Pt reports cookie baking is her stress relief and this is when she has had back pain and so she can do thoracic mobility and racquet ball massage as cookies are baking. Con't to progress exercises. Pt would like to get done in the 6 visits including the eval. Physical Therapy Plan Frequency and Duration Frequency of Treatment 2x/Week Duration of Treatment 8 weeks Plan of Care Start Date 10/04/20 Plan of Care End Date 12/06/20 Therapeutic Interventions Therapeutic Interventions Balance Training,Canalithic Repositioning,Coordination Training,Gait Training,Home Exercise Program,Joint Mobilizations,Manual Therapy, Neuromuscular Re-education, Patient/Caregiver Education, Self-Care/Home Management,Soft Tissue Mobilization, Therapeutic Activities, Therapeutic Exercises Modalities Cold Pack/Ice Massage,Hot Packs Next Visit Focus/Plan Next Note Type Treatment Note Next Visit Plan Body mechanics training, LE flexibility exercises, diaphragm breathing, progress core and LE strengthening
--- NOTE | 2020-10-12 13:50 | PT.OTN ---
Current Diagnoses Sciatica, left side (10/12/20) Low back pain (10/12/20) Physical Therapy Treatment Note PT-OP-A Visit Information Start: 10/01/20 07:17 Freq: Status: Active Protocol: Document 10/12/20 07:31 MB (Rec: 10/12/20 08:19 MB [id number]) Out-Patient Physical Therapy Visit Information Visit Information Visit Type Treatment Note Visit Note [employer] Medicare, $ 40 copay Pt goes by Ana Visit Start Time 07:31 Visit Stop Time 08:14 Total Visit Minutes 43 Visit Number 3 PT-OP-B Current Condition Start: 10/01/20 07:17 Freq: Status: Active Protocol: Document 10/04/20 08:16 MB (Rec: 10/04/20 08:34 MB [id number]) Current Condition History of Current Condition Onset Date Two months or more Current Complaints Back and leg pain History of Current Condition Pt reports back pain when standing greater than 30 minutes and left leg pain that wakes her up at night every two hours. If she gets up, it goes away. Her left hip bothers her a little when she walks but it does not keep her from walking. Pt had a shot in the side of her left hip in the past for pain. Pt has a chronic cough and history of constipation. Her history has reactive airway disease in it. 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 She takes over the counter allergy medication and BP medication. The chiropractor does not pop her and it is helping her neck a lot. When reviewing medical record, PT notes MS and pt states that she does not have MS. She has history of leg and eye trouble at age 45 for 1 year. She got bit by a bug and one of her legs swelled up. She stated talking B12 and vitamin E and getting rest and she got better about a year. Pt has been going to a chiropractor for a couple of months. It has helped her walking but not her pains. She is going about every 6 weeks. Pt has a history of left arm fracture x2 and no surgeries. She had two falls. She has not had any falls recently. Pt rates pain as 3/10 left arm pain, 5/10 left anterolateral and posterior flank and back pain. 5/10 pain that goes down the lola and postero lateral left leg. Pt is sleeping on either side with 1 pillow between legs. She sleeps alone and her mattress is 5 years old. Pt denies numbness and tingling down her legs and she has awakened with numbness in her left hand. Pt is not falling. She is feeling more imbalanced outside. 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 She has been walking in the morning and that is going fine. Her LB still hurts when she is cooking, gardening and sweeping the floor. PT-OP-G Mobility & Gait Start: 10/01/20 07:17 Freq: Status: Active Protocol: Document 10/04/20 08:16 MB (Rec: 10/04/20 16:00 MB [id number]) OP Gait Assessment Gait Gait Assistance Required: Independent Distance (Feet) 50 Able to Maintain Weight Bearing Status Yes During Gait Assistive Devices Assistive Device None Orthotic/Prosthetic Devices or Brace: No Gait Deviations General Gait Pattern Antalgic,Decreased Stride Length,Narrow Based Gait Factors Limiting Gait Function Factors Limiting Gait Function Limited Range of Motion,Pain, Poor Balance Comments Gait Comments Pt presents with very limited left pelvic movement with gait , left iliac crest is higher with gait and posture assessment, narrow BETTY, decreased right arm swing PT-OP-J Posture/Palpation/Skin Start: 10/01/20 07:17 Freq: Status: Active Protocol: Document 10/04/20 08:16 MB (Rec: 10/04/20 16:00 MB [id number]) Posture Evaluation Comments Posture Comments Standing with her shoes on: Elevated shoulders, forward head, rounded shoulders, Dowager's hump, anterior tilt pelvis, right shoulder lower than the left, left scapula elevated and protracted compared to the right, some spinal curvature changes, increased Jordan angle right foot, supination right foot, increased B knee valgus with thigh approximation, left iliac crest higher than the right Skin Assessment Other Assessments Skin Assessment Comments Mild edema LLE that is concerning to patient PT-OP-M Strength Start: 10/01/20 07:17 Freq: Status: Active Protocol: Document 10/04/20 08:16 MB (Rec: 10/04/20 16:00 MB [id number]) Hip Strength Hip Manual Muscle Testing Left Flexion (L2) 4 Good Abduction 3+ Fair+ Right Flexion (L2) 4 Good Abduction 4 Good Knee Strength Knee Manual Muscle Testing Left Flexion (S2) 3+ Fair+ Extension (L3) 4 Good Right Flexion (S2) 4 Good Extension (L3) 4 Good Ankle/Foot Strength Ankle and Foot Manual Muscle Testing Left Dorsiflexion (L4) 4 Good Right Dorsiflexion (L4) 4 Good Toe Strength Toe Manual Muscle Testing Left Great Toe Extension 4 Good Right Great Toe Extension 4 Good PT-OP-Q Treatments Start: 10/01/20 07:17 Freq: Status: Active Protocol: Document 10/12/20 07:31 MB (Rec: 10/12/20 08:19 MB [id number]) Therapeutic Exercises Standing Exercises Thoracic massage with kid's ball Comments Ball at pt's thoracic spine and glutes Manual Therapy Treatment Other Other Manual Treatments Pt kneeling over plinth, knees on wedge: STM thoracic and lumbar paraspinals, B QL, hip rotators. Increased tension on the left compared to right hip rotators. Increased tension left lower traps compared to right and right QL Self-Care/Home Management Treatment Education Other Education Body mechanics education and handouts about sitting position at computer (revised for at her sewing machine), in her car, body mechanics for baking, lifting, taking groceries out of the trunk. Ed included golfer's lift, managing BETTY and posture. PT-OP-T Assessment and Plan Start: 10/01/20 07:17 Freq: Status: Active Protocol: Document 10/12/20 07:31 MB (Rec: 10/12/20 08:19 MB [id number]) Physical Therapy Assessment Rehab Potential Rehabilitation Potential Fair Evaluation Complexity Number of Personal Factors/Comorbidities 1-2 Number of Body Systems Impaired 3 Clinical Presentation at Evaluation Evolving Impairments Impairments Activity Tolerance,Balance, Functional Activities, Functional Mobility,Gait, Integument,Pain,Posture,Soft Tissue Mobility,Strength Other Impairments Personal factors include advanced change and spinal changes. Body systems affected include musculoskeletal, neuromuscular, integumentary. Her clinical presentation is evolving in setting of advancing degenerative changes with age. Other Concerns Fall Risk Yes, though pt denies falls Goals 4 Penitentiary Goal (LTG) Pt will perform progressive HEP with I including pelvic realignment, postural, flexibility, self-myofascial release, breathing, balance and strengthening exercises to decrease pain and improve mobility and strength by . LTG Duration 8 weeks 3 Penitentiary Goal (LTG) Pt will present with an improvement in B hip flexion, abduction and knee flexion and abduction strength to 5/5 to improve gait and functional strength by 12/04/20. LTG Duration 8 weeks 2 Penitentiary Goal (LTG) Pt will report being able to bake cookies for 30 minutes with at least 75% improvement in back pain by 12/04/20. LTG Duration 8 weeks 1 Penitentiary Goal (LTG) Pt will perform WNLs on a standardized balance test to decrease fall risk by 12/04/20. LTG Duration 8 weeks Assessment Summary Assessment Initiated manual work and provided body mechanics training today. Pt would like PT to be through in remaining 3-4 visits and so will con't to try to optimize core, flexibility, strengthening and balance training. Her spinal degenerative changes are a barrier to complete resolution of pain. Physical Therapy Plan Frequency and Duration Frequency of Treatment 2x/Week Duration of Treatment 8 weeks Plan of Care Start Date 10/04/20 Plan of Care End Date 12/06/20 Therapeutic Interventions Therapeutic Interventions Balance Training,Canalithic Repositioning,Coordination Training,Gait Training,Home Exercise Program,Joint Mobilizations,Manual Therapy, Neuromuscular Re-education, Patient/Caregiver Education, Self-Care/Home Management,Soft Tissue Mobilization, Therapeutic Activities, Therapeutic Exercises Modalities Cold Pack/Ice Massage,Hot Packs Next Visit Focus/Plan Next Note Type Treatment Note Next Visit Plan LE flexibility exercises, diaphragm breathing, progress core and LE strengthening, maybe one balance exercise and intrascapular and shoulder ER strengthening
--- NOTE | 2020-10-14 08:12 | PT.OTN ---
Current Diagnoses Sciatica, left side (10/14/20) Low back pain (10/14/20) Physical Therapy Treatment Note PT-OP-A Visit Information Start: 10/01/20 07:17 Freq: Status: Active Protocol: Document 10/14/20 07:29 MB (Rec: 10/14/20 08:11 MB [id number]) Out-Patient Physical Therapy Visit Information Visit Information Visit Type Treatment Note Visit Note [employer], $ 40 copay Visit Start Time 07:29 Visit Stop Time 08:09 Total Visit Minutes 40 Visit Number 4 PT-OP-B Current Condition Start: 10/01/20 07:17 Freq: Status: Active Protocol: Document 10/04/20 08:16 MB (Rec: 10/04/20 08:34 MB [id number]) Current Condition History of Current Condition Onset Date Two months or more Current Complaints Back and leg pain History of Current Condition Pt reports back pain when standing greater than 30 minutes and left leg pain that wakes her up at night every two hours. If she gets up, it goes away. Her left hip bothers her a little when she walks but it does not keep her from walking. Pt had a shot in the side of her left hip in the past for pain. Pt has a chronic cough and history of constipation. Her history has reactive airway disease in it. 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 She takes over the counter allergy medication and BP medication. The chiropractor does not pop her and it is helping her neck a lot. When reviewing medical record, PT notes MS and pt states that she does not have MS. She has history of leg and eye trouble at age 45 for 1 year. She got bit by a bug and one of her legs swelled up. She stated talking B12 and vitamin E and getting rest and she got better about a year. Pt has been going to a chiropractor for a couple of months. It has helped her walking but not her pains. She is going about every 6 weeks. Pt has a history of left arm fracture x2 and no surgeries. She had two falls. She has not had any falls recently. Pt rates pain as 3/10 left arm pain, 5/10 left anterolateral and posterior flank and back pain. 5/10 pain that goes down the lola and postero lateral left leg. Pt is sleeping on either side with 1 pillow between legs. She sleeps alone and her mattress is 5 years old. Pt denies numbness and tingling down her legs and she has awakened with numbness in her left hand. Pt is not falling. She is feeling more imbalanced outside. 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 PT-OP-G Mobility & Gait Start: 10/01/20 07:17 Freq: Status: Active Protocol: Document 10/04/20 08:16 MB (Rec: 10/04/20 16:00 MB [id number]) OP Gait Assessment Gait Gait Assistance Required: Independent Distance (Feet) 50 Able to Maintain Weight Bearing Status Yes During Gait Assistive Devices Assistive Device None Orthotic/Prosthetic Devices or Brace: No Gait Deviations General Gait Pattern Antalgic,Decreased Stride Length,Narrow Based Gait Factors Limiting Gait Function Factors Limiting Gait Function Limited Range of Motion,Pain, Poor Balance Comments Gait Comments Pt presents with very limited left pelvic movement with gait , left iliac crest is higher with gait and posture assessment, narrow BETTY, decreased right arm swing PT-OP-J Posture/Palpation/Skin Start: 10/01/20 07:17 Freq: Status: Active Protocol: Document 10/04/20 08:16 MB (Rec: 10/04/20 16:00 MB [id number]) Posture Evaluation Comments Posture Comments Standing with her shoes on: Elevated shoulders, forward head, rounded shoulders, Dowager's hump, anterior tilt pelvis, right shoulder lower than the left, left scapula elevated and protracted compared to the right, some spinal curvature changes, increased Jordan angle right foot, supination right foot, increased B knee valgus with thigh approximation, left iliac crest higher than the right Skin Assessment Other Assessments Skin Assessment Comments Mild edema LLE that is concerning to patient PT-OP-M Strength Start: 10/01/20 07:17 Freq: Status: Active Protocol: Document 10/04/20 08:16 MB (Rec: 10/04/20 16:00 MB [id number]) Hip Strength Hip Manual Muscle Testing Left Flexion (L2) 4 Good Abduction 3+ Fair+ Right Flexion (L2) 4 Good Abduction 4 Good Knee Strength Knee Manual Muscle Testing Left Flexion (S2) 3+ Fair+ Extension (L3) 4 Good Right Flexion (S2) 4 Good Extension (L3) 4 Good Ankle/Foot Strength Ankle and Foot Manual Muscle Testing Left Dorsiflexion (L4) 4 Good Right Dorsiflexion (L4) 4 Good Toe Strength Toe Manual Muscle Testing Left Great Toe Extension 4 Good Right Great Toe Extension 4 Good PT-OP-Q Treatments Start: 10/01/20 07:17 Freq: Status: Active Protocol: Document 10/14/20 07:29 MB (Rec: 10/14/20 08:11 MB [id number]) Therapeutic Exercises Supine Exercises Abdominal drawing in Comments Ed to perform before Hernán stretch Hip rotator stretch Side bilateral Comments For right stretch, can lift left leg, cannot with switch Hernán stretch Side bilateral Comments B, abdominal drawing in first, pelvic tilt, 20 sec hold Hamstring stretch with AP Side bilateral Comments Opposite leg straight, hands behind thigh, hamstring stretch and then AP Diaphragm breathing Comments 5 reps slowly, nasal breathing Standing Exercises Thoracic massage with kid's ball Comments Pt performs at thoracic spine and glutes today Neuro Re-Education Treatment Balance Activities Corner balance assessment and exercises Comments Romberg EO at least a minute, Romberg EC 45 sec and increased sway. Cannot keep balance with full tandem. Pt can maintain partial tandem B for at least 10 sec and added this to HEP PT-OP-T Assessment and Plan Start: 10/01/20 07:17 Freq: Status: Active Protocol: Document 10/14/20 07:29 MB (Rec: 10/14/20 08:11 MB [id number]) Physical Therapy Assessment Rehab Potential Rehabilitation Potential Fair Evaluation Complexity Number of Personal Factors/Comorbidities 1-2 Number of Body Systems Impaired 3 Clinical Presentation at Evaluation Evolving Impairments Impairments Activity Tolerance,Balance, Functional Activities, Functional Mobility,Gait, Integument,Pain,Posture,Soft Tissue Mobility,Strength Other Impairments Personal factors include advanced change and spinal changes. Body systems affected include musculoskeletal, neuromuscular, integumentary. Her clinical presentation is evolving in setting of advancing degenerative changes with age. Other Concerns Fall Risk Yes, though pt denies falls Goals 4 Awning Assembler Goal (LTG) Pt will perform progressive HEP with I including pelvic realignment, postural, flexibility, self-myofascial release, breathing, balance and strengthening exercises to decrease pain and improve mobility and strength by . LTG Duration 8 weeks 3 Intermediate Goal (LTG) Pt will present with an improvement in B hip flexion, abduction and knee flexion and abduction strength to 5/5 to improve gait and functional strength by 12/04/20. LTG Duration 8 weeks 2 Intermediate Goal (LTG) Pt will report being able to bake cookies for 30 minutes with at least 75% improvement in back pain by 12/04/20. LTG Duration 8 weeks 1 Intermediate Goal (LTG) Pt will perform WNLs on a standardized balance test to decrease fall risk by 12/04/20. LTG Duration 8 weeks Assessment Summary Assessment Progressed flexibility exercises today and initiated abdominal drawing in. Also assessed and added balance exercise. Have 2 more treatments and so con't exercise progression next treatment date. Physical Therapy Plan Frequency and Duration Frequency of Treatment 2x/Week Duration of Treatment 8 weeks Plan of Care Start Date 10/04/20 Plan of Care End Date 12/06/20 Therapeutic Interventions Therapeutic Interventions Balance Training,Canalithic Repositioning,Coordination Training,Gait Training,Home Exercise Program,Joint Mobilizations,Manual Therapy, Neuromuscular Re-education, Patient/Caregiver Education, Self-Care/Home Management,Soft Tissue Mobilization, Therapeutic Activities, Therapeutic Exercises Modalities Cold Pack/Ice Massage,Hot Packs Next Visit Focus/Plan Next Note Type Treatment Note Next Visit Plan Progress core and LE strengthening, intrascapular and shoulder ER strengthening
--- NOTE | 2020-10-19 08:17 | PT.OTN ---
Current Diagnoses Sciatica, left side (10/19/20) Low back pain (10/19/20) Physical Therapy Treatment Note PT-OP-A Visit Information Start: 10/01/20 07:17 Freq: Status: Active Protocol: Document 10/19/20 07:31 MB (Rec: 10/19/20 07:58 MB [id number]) Out-Patient Physical Therapy Visit Information Visit Information Visit Type Treatment Note Visit Note [employer], $ 40 copay Visit Start Time 07:31 Visit Stop Time 08:12 Total Visit Minutes 41 Visit Number 5 PT-OP-B Current Condition Start: 10/01/20 07:17 Freq: Status: Active Protocol: Document 10/04/20 08:16 MB (Rec: 10/04/20 08:34 MB [id number]) Current Condition History of Current Condition Onset Date Two months or more Current Complaints Back and leg pain History of Current Condition Pt reports back pain when standing greater than 30 minutes and left leg pain that wakes her up at night every two hours. If she gets up, it goes away. Her left hip bothers her a little when she walks but it does not keep her from walking. Pt had a shot in the side of her left hip in the past for pain. Pt has a chronic cough and history of constipation. Her history has reactive airway disease in it. 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 She takes over the counter allergy medication and BP medication. The chiropractor does not pop her and it is helping her neck a lot. When reviewing medical record, PT notes MS and pt states that she does not have MS. She has history of leg and eye trouble at age 45 for 1 year. She got bit by a bug and one of her legs swelled up. She stated talking B12 and vitamin E and getting rest and she got better about a year. Pt has been going to a chiropractor for a couple of months. It has helped her walking but not her pains. She is going about every 6 weeks. Pt has a history of left arm fracture x2 and no surgeries. She had two falls. She has not had any falls recently. Pt rates pain as 3/10 left arm pain, 5/10 left anterolateral and posterior flank and back pain. 5/10 pain that goes down the lola and postero lateral left leg. Pt is sleeping on either side with 1 pillow between legs. She sleeps alone and her mattress is 5 years old. Pt denies numbness and tingling down her legs and she has awakened with numbness in her left hand. Pt is not falling. She is feeling more imbalanced outside. 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 PT-OP-G Mobility & Gait Start: 10/01/20 07:17 Freq: Status: Active Protocol: Document 10/04/20 08:16 MB (Rec: 10/04/20 16:00 MB [id number]) OP Gait Assessment Gait Gait Assistance Required: Independent Distance (Feet) 50 Able to Maintain Weight Bearing Status Yes During Gait Assistive Devices Assistive Device None Orthotic/Prosthetic Devices or Brace: No Gait Deviations General Gait Pattern Antalgic,Decreased Stride Length,Narrow Based Gait Factors Limiting Gait Function Factors Limiting Gait Function Limited Range of Motion,Pain, Poor Balance Comments Gait Comments Pt presents with very limited left pelvic movement with gait , left iliac crest is higher with gait and posture assessment, narrow BETTY, decreased right arm swing PT-OP-J Posture/Palpation/Skin Start: 10/01/20 07:17 Freq: Status: Active Protocol: Document 10/04/20 08:16 MB (Rec: 10/04/20 16:00 MB [id number]) Posture Evaluation Comments Posture Comments Standing with her shoes on: Elevated shoulders, forward head, rounded shoulders, Dowager's hump, anterior tilt pelvis, right shoulder lower than the left, left scapula elevated and protracted compared to the right, some spinal curvature changes, increased Jordan angle right foot, supination right foot, increased B knee valgus with thigh approximation, left iliac crest higher than the right Skin Assessment Other Assessments Skin Assessment Comments Mild edema LLE that is concerning to patient PT-OP-M Strength Start: 10/01/20 07:17 Freq: Status: Active Protocol: Document 10/04/20 08:16 MB (Rec: 10/04/20 16:00 MB [id number]) Hip Strength Hip Manual Muscle Testing Left Flexion (L2) 4 Good Abduction 3+ Fair+ Right Flexion (L2) 4 Good Abduction 4 Good Knee Strength Knee Manual Muscle Testing Left Flexion (S2) 3+ Fair+ Extension (L3) 4 Good Right Flexion (S2) 4 Good Extension (L3) 4 Good Ankle/Foot Strength Ankle and Foot Manual Muscle Testing Left Dorsiflexion (L4) 4 Good Right Dorsiflexion (L4) 4 Good Toe Strength Toe Manual Muscle Testing Left Great Toe Extension 4 Good Right Great Toe Extension 4 Good PT-OP-Q Treatments Start: 10/01/20 07:17 Freq: Status: Active Protocol: Document 10/19/20 07:31 MB (Rec: 10/19/20 07:58 MB [id number]) Therapeutic Exercises Supine Exercises Hip abduction with band Side bilateral Equipment Used Level 1 band Comments Clams, core tight Core progression Supine Exercise Name Abdominal drawing in, lunmbar rotation, HS, mini march Side bilateral Comments 5 reps Standing Exercises Scapular retraction, shoulder ER with band Side bilateral Reps/Minutes Level 1 band Comments 5 reps both, cues to make core tight Manual Therapy Treatment Other Other Manual Treatments Pt hook lying: B hip flexor and quad STM PT-OP-T Assessment and Plan Start: 10/01/20 07:17 Freq: Status: Active Protocol: Document 10/19/20 07:31 MB (Rec: 10/19/20 07:58 MB [id number]) Physical Therapy Assessment Rehab Potential Rehabilitation Potential Fair Evaluation Complexity Number of Personal Factors/Comorbidities 1-2 Number of Body Systems Impaired 3 Clinical Presentation at Evaluation Evolving Impairments Impairments Activity Tolerance,Balance, Functional Activities, Functional Mobility,Gait, Integument,Pain,Posture,Soft Tissue Mobility,Strength Other Impairments Personal factors include advanced change and spinal changes. Body systems affected include musculoskeletal, neuromuscular, integumentary. Her clinical presentation is evolving in setting of advancing degenerative changes with age. Other Concerns Fall Risk Yes, though pt denies falls Goals 4 Single Pointed Operator Goal (LTG) Pt will perform progressive HEP with I including pelvic realignment, postural, flexibility, self-myofascial release, breathing, balance and strengthening exercises to decrease pain and improve mobility and strength by 6/26/ 21. LTG Duration 8 weeks 3 Single Pointed Operator Goal (LTG) Pt will present with an improvement in B hip flexion, abduction and knee flexion and abduction strength to 5/5 to improve gait and functional strength by 12/04/20. LTG Duration 8 weeks 2 Single Pointed Operator Goal (LTG) Pt will report being able to bake cookies for 30 minutes with at least 75% improvement in back pain by 12/04/20. LTG Duration 8 weeks 1 Single Pointed Operator Goal (LTG) Pt will perform WNLs on a standardized balance test to decrease fall risk by 12/04/20. LTG Duration 8 weeks Assessment Summary Assessment Finished exercise program today and will prepare for d/c next treatment date. Physical Therapy Plan Frequency and Duration Frequency of Treatment 2x/Week Duration of Treatment 8 weeks Plan of Care Start Date 10/04/20 Plan of Care End Date 12/06/20 Therapeutic Interventions Therapeutic Interventions Balance Training,Canalithic Repositioning,Coordination Training,Gait Training,Home Exercise Program,Joint Mobilizations,Manual Therapy, Neuromuscular Re-education, Patient/Caregiver Education, Self-Care/Home Management,Soft Tissue Mobilization, Therapeutic Activities, Therapeutic Exercises Modalities Cold Pack/Ice Massage,Hot Packs Next Visit Focus/Plan Next Note Type Discharge Summary
--- NOTE | 2020-10-22 08:51 | PT.OTN ---
Current Diagnoses Sciatica, left side (10/22/20) Low back pain (10/22/20) Physical Therapy Treatment Note PT-OP-A Visit Information Start: 10/01/20 07:17 Freq: Status: Active Protocol: Document 10/22/20 08:19 MB (Rec: 10/22/20 08:51 MB [id number]) Out-Patient Physical Therapy Visit Information Visit Information Visit Type Treatment Note Visit Note [employer], $ 40 copay Visit Start Time 08:19 Visit Stop Time 08:46 Total Visit Minutes 27 Visit Number 6 PT-OP-B Current Condition Start: 10/01/20 07:17 Freq: Status: Active Protocol: Document 10/04/20 08:16 MB (Rec: 10/04/20 08:34 MB [id number]) Current Condition History of Current Condition Onset Date Two months or more Current Complaints Back and leg pain History of Current Condition Pt reports back pain when standing greater than 30 minutes and left leg pain that wakes her up at night every two hours. If she gets up, it goes away. Her left hip bothers her a little when she walks but it does not keep her from walking. Pt had a shot in the side of her left hip in the past for pain. Pt has a chronic cough and history of constipation. Her history has reactive airway disease in it. 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 She takes over the counter allergy medication and BP medication. The chiropractor does not pop her and it is helping her neck a lot. When reviewing medical record, PT notes MS and pt states that she does not have MS. She has history of leg and eye trouble at age 45 for 1 year. She got bit by a bug and one of her legs swelled up. She stated talking B12 and vitamin E and getting rest and she got better about a year. Pt has been going to a chiropractor for a couple of months. It has helped her walking but not her pains. She is going about every 6 weeks. Pt has a history of left arm fracture x2 and no surgeries. She had two falls. She has not had any falls recently. Pt rates pain as 3/10 left arm pain, 5/10 left anterolateral and posterior flank and back pain. 5/10 pain that goes down the lola and postero lateral left leg. Pt is sleeping on either side with 1 pillow between legs. She sleeps alone and her mattress is 5 years old. Pt denies numbness and tingling down her legs and she has awakened with numbness in her left hand. Pt is not falling. She is feeling more imbalanced outside. 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 Her other muscles hurt. She reports some pain in her arms and shoulders. PT-OP-G Mobility & Gait Start: 10/01/20 07:17 Freq: Status: Active Protocol: Document 10/04/20 08:16 MB (Rec: 10/04/20 16:00 MB [id number]) OP Gait Assessment Gait Gait Assistance Required: Independent Distance (Feet) 50 Able to Maintain Weight Bearing Status Yes During Gait Assistive Devices Assistive Device None Orthotic/Prosthetic Devices or Brace: No Gait Deviations General Gait Pattern Antalgic,Decreased Stride Length,Narrow Based Gait Factors Limiting Gait Function Factors Limiting Gait Function Limited Range of Motion,Pain, Poor Balance Comments Gait Comments Pt presents with very limited left pelvic movement with gait , left iliac crest is higher with gait and posture assessment, narrow BETTY, decreased right arm swing PT-OP-J Posture/Palpation/Skin Start: 10/01/20 07:17 Freq: Status: Active Protocol: Document 10/04/20 08:16 MB (Rec: 10/04/20 16:00 MB [id number]) Posture Evaluation Comments Posture Comments Standing with her shoes on: Elevated shoulders, forward head, rounded shoulders, Dowager's hump, anterior tilt pelvis, right shoulder lower than the left, left scapula elevated and protracted compared to the right, some spinal curvature changes, increased Jordna angle right foot, supination right foot, increased B knee valgus with thigh approximation, left iliac crest higher than the right Skin Assessment Other Assessments Skin Assessment Comments Mild edema LLE that is concerning to patient PT-OP-M Strength Start: 10/01/20 07:17 Freq: Status: Active Protocol: Document 10/04/20 08:16 MB (Rec: 10/04/20 16:00 MB [id number]) Hip Strength Hip Manual Muscle Testing Left Flexion (L2) 4 Good Abduction 3+ Fair+ Right Flexion (L2) 4 Good Abduction 4 Good Knee Strength Knee Manual Muscle Testing Left Flexion (S2) 3+ Fair+ Extension (L3) 4 Good Right Flexion (S2) 4 Good Extension (L3) 4 Good Ankle/Foot Strength Ankle and Foot Manual Muscle Testing Left Dorsiflexion (L4) 4 Good Right Dorsiflexion (L4) 4 Good Toe Strength Toe Manual Muscle Testing Left Great Toe Extension 4 Good Right Great Toe Extension 4 Good PT-OP-Q Treatments Start: 10/01/20 07:17 Freq: Status: Active Protocol: Document 10/22/20 08:19 MB (Rec: 10/22/20 08:51 MB [id number]) Manual Therapy Treatment Other Other Manual Treatments Pt prone: very gentle myofascial release of B thoracolumbar parapsinals, QL and glutes. PT helps pt reposition and pt still does not like treatment position and with various complaints Neuro Re-Education Treatment Balance Activities FGA Comments FGA score is 24/30, indicating increased risk for falling and pt with most trouble with tandem walking, backward walking and steps Self-Care/Home Management Treatment Education Other Education Con't non-caffeinated fluid intake, con't HEP, ongoing rest and body mechanics education with regard to pain with baking PT-OP-T Assessment and Plan Start: 10/01/20 07:17 Freq: Status: Active Protocol: Document 10/22/20 08:19 MB (Rec: 10/22/20 08:51 MB [id number]) Physical Therapy Assessment Goals 4 Assisted Goal (LTG) Pt will perform progressive HEP with I including pelvic realignment, postural, flexibility, self-myofascial release, breathing, balance and strengthening exercises to decrease pain and improve mobility and strength by . 10/22/20: Pt is performing her HEP as she can LTG Duration Met 3 Dobie Man Goal (LTG) Pt will present with an improvement in B hip flexion, abduction and knee flexion and abduction strength to / to improve gait and functional strength by 12/04/20. 10/22/20: Deferred MMT d/t pt reports muscle pain LTG Duration Deferred testing 2 Dobie Man Goal (LTG) Pt will report being able to bake cookies for 30 minutes with at least 75% improvement in back pain by 12/04/20. 10/22/20: Pt states that she does not think that her pain with baking cookies is better LTG Duration Not Met 1 Assisted Goal (LTG) Pt will perform WNLs on a standardized balance test to decrease fall risk by 12/04/20. 10/22/20: FGA score is 24/30, indicating increased risk for falls LTG Duration Partially met Assessment Summary Assessment It is unclear how much buy in pt got with PT. It is unclear how much she is taking breaks with tasks and following body mechanics and exercise education and instructions. She has some self-limiting behaviors as far as what she thinks will help, what she can do and what will help. She has only allowed 6 total visits for PT and this is also a limiting factor. Degenerative changes are large contributors to pain. Pt cannot relax in prone for manual work today. She con't with some balance difficulties , reports no improvement with pain in baking and has met HEP goal. She has maximized PT potential and pt states she has always planned to d/c PT this 6th treatment. Will d/c PT. Physical Therapy Plan Discharge Physical Therapy Discharge Reasons Patient Request
== END 2020-10-22 08:59 | disposition home or self-care (01) ==
LOC: PHYS 08:15
PROVIDERS: PCP Family Medicine; Referring Provider Family Medicine; Visit Provider Family Medicine
DX: M54.5 Low back pain (principal); M54.32 Sciatica, left side
CPT/HCPCS: 97110; 97112; 97140; 97161; 97535

== ENCOUNTER → 2020-11-04 09:17 | Outpatient (CLI) | payer MEDICARE, SELFPAY ==
[2020-11-04 10:27] LABS: COVID19 -Nasal RAPID Negative (Negative)
== END ==
PROVIDERS: PCP Family Medicine; Visit Provider Specialist
DX: Z20.822 Contact with and (suspected) exposure to COVID-19 (principal)
CPT/HCPCS: 87635; C9803

== ENCOUNTER 2020-11-05 07:12 | Day surgery (SDC) | payer MEDICARE, SELFPAY ==
[2020-11-05] VITALS (8 sets, daily range): BP systolic 116–135; BP diastolic 45–62; PULSE 57–65; RESP 13–18; TEMP 36.1–37.1; O2SAT 94–98; BMI 27.3
[2020-11-05] MEDS: LACTATED RINGERS 1,000 ML 200 ML IV (08:21)
--- NOTE | 2020-11-05 09:02 | PM.HP.1 ---
History of Present Illness History of Present Illness Date Patient Seen: 11/05/20 Time Patient Seen: 09:02 Chief complaint: SDC Narrative: The patient is a woman who had bleeding a couple of years ago and was scheduled for 2 colonoscopies in the interim. Neither of which ultimately was done. The 1st was delayed because of a cardiac workup the proved to be negative. The 2nd was delayed because of COVID. In the interim she had 2 CT scans that showed some possible narrowing in a portion of her colon. A repeat scan failed to show those findings. And she is here for colonoscopy because of all those things. She has had no further bleeding. Last colonoscopy was at least 8 years ago. Patient History Medical History Allergies (~1989) Cataracts, bilateral Chicken pox (~194) Chronic back pain Chronic cough (~2018) Endometriosis (~1968) Fractures Frequent UTI (~2015) Hearing loss History of recurrent ear infection History of squamous cell carcinoma History of urinary incontinence Hyperlipidemia Hypertension (~1994) Measles (~193) Multiple sclerosis (~1969) Mumps (~1959) Preventative health care Reactive airway disease Recurrent sinusitis Squamous cell carcinoma (~2009) Vertigo Surgical History Anesthesia History of bladder suspension procedure (~1983) History of removal of cyst (~1977) History of stress test (~2018) History of surgical removal of squamous cell carcinoma of skin of latter day region (~2009) Family & Social History Family History Father Cancer Mother Stroke Brother History of heart disease Brother History of heart disease Knee problem Hypertension Grandmother Stroke Grandmother Stroke Social History: household members other Tobacco & Substance use: Smoking Status Never smoker alcohol intake never Substance Use Type does not use Meds Home Medications and Allergies Home Medications Medication Instructions Recorded Confirmed Type CoQ10 100 mg PO DAILY 05/19/20 11/05/20 History Vitamin E PO DAILY 05/19/20 08/16/20 History amlodipine 5 mg tablet 5 mg PO BID #180 tab 05/19/20 11/05/20 Rx aspirin 81 mg tablet,delayed 81 mg PO DAILY 05/19/20 11/05/20 History release atorvastatin 20 mg tablet 20 mg PO DAILY 05/19/20 11/05/20 History lisinopril 40 mg tablet 40 mg PO DAILY 05/19/20 11/05/20 History metoprolol succinate 25 mg 25 mg PO BEDTIME #90 tab 05/19/20 11/05/20 Rx tablet,extended release 24 hr multivitamin 1 tab PO DAILY 05/19/20 11/05/20 History albuterol sulfate 90 mcg/actuation 2 puff INHALATION QID PRN #18 g 06/28/20 11/05/20 Rx aerosol inhaler Allergies Allergy/AdvReac Type Severity Reaction Status Date / Time Sulfa (Sulfonamide Allergy Mild Verified 08/16/20 09:19 Antibiotics) [SULFA (SULFONAMIDE ANTIBIOTICS)] Review of Systems Review of Systems Narrative: Patient has back pain issues and arthritis. She has a chronic cough of 2 years that may or may not be related to her lisinopril. She does not have MS though she has been tested for it. ROS: Yes All systems reviewed with the patient and are negative except as otherwise documented Exam Vital Signs (past 8 hours): - 11/05/20 08:16 Temperature 98.1 F Pulse Rate 64 Respiratory Rate 14 Blood Pressure 135/62 Pulse Oximetry 95 Oxygen Delivery Method Room Air Narrative Exam Narrative: Pleasant cooperative patient no apparent distress. Lungs are clear to auscultation. No rales or rhonchi. Heart regular rate and rhythm no murmur gallop. Abdomen is soft nontender without mass. No obvious hernias. Patient is alert and oriented x3. Assessment & Plan Assessment & Plan narrative: The patient for a screening colonoscopy. I have discussed the procedure with them. Risks of bleeding, perforation which would necessitate major operation, failure to find remove all lesions, the potential tattoo were all discussed. All questions were answered. They wished to proceed.
--- NOTE | 2020-11-05 09:07 | PM.PREOP ---
Pre-operative Note COVID-19 COVID-19 status: Negative Result date/Date tested (Pos, Neg/Pending): 11/04/20 Interval Note History & Physical reviewed/Exam performed by Physician: Yes Changes to H&P: No ASA Class (for procedural sedation): III
[2020-11-05] MEDS: MIDAZOLAM 5 MG/5 ML VIAL IV (09:24)
[2020-11-05] MEDS: fentaNYL 250 MCG/5 ML INJ IV (09:24)
--- NOTE | 2020-11-05 09:36 | P.OP.ENDO_ITS ---
Operative Date/Time/Diagnoses Date of procedure: 11/05/20 Time of procedure: 09:37 Pre-op diagnosis: Screening examination. History of rectal bleeding. History of abnormal CT scan of the rectum. Post-op diagnosis: same (Normal examination. Internal hemorrhoids with scarring . Small thrombosed external hemorrhoid.) Procedure & Clinicians Study performed: Colonoscopy Same procedure as scheduled: Yes Indications: Screening Surgeon: Franklin Torres Procedure Notes SCOAP/Timeout: Performed Procedure in detail: The patient was placed in the left lateral decubitus position and underwent IV sedation directed by the surgeon consisting of fentanyl and Versed. Digital exam was remarkable for a visible thrombosed external hemorrhoid that is quite small. Normal sphincter tone. The scope was inserted and advanced through the rectum into the sigmoid, descending, transverse, and ascending colon. Pressure was applied we made our way into the cecum.. The cecum was reached identified by the ileocecal valve and the appe ndiceal opening. The ileocecal valve was successfully cannulated. The terminal ileum was normal in appearance. The scope was gradually brought out. No Polyps were found. The scope ultimately was retroflexed in the rectum. The appearance was [remarkable for internal hemorrhoids with scarring. No ulcerations seen.]. The scope was removed and the patient tolerated the procedure well. The prep was excellent Scope withdrawal time: Performed Sedation minutes: 25 Findings: internal hemorrhoids Specimen(s): none sent Complications: none Post-procedure Recommendations: Other recommendation (No further colonoscopy is recommended for screening purposes due to your age. You may have a colonoscopy in the future however for symptoms.) Follow up: as needed Disposition: PACU
--- NOTE | 2020-11-05 10:28 | SUR.PHASEII ---
pt given discharge instructions. Pt denies any pain and nausea. pt drinking coffee and states she feels good. Pt's daughter called and she will pick her up in the front of the ER.
== END 2020-11-05 10:36 | disposition home or self-care (01) ==
PROVIDERS: PCP Family Medicine; Referring Provider Family Medicine; Visit Provider Specialist
PROC: 0DJD8ZZ Inspection of Lower Intestinal Tract, Via Natural or Artificial Opening Endoscopic (ICD-10-PCS; CPT 45378; principal; 2020-11-05 08:30)
DX: Z12.11 Encounter for screening for malignant neoplasm of colon (principal); K64.8 Other hemorrhoids
CPT/HCPCS: G0121; 99152; J2250; J3010

== ENCOUNTER 2020-12-15 16:44 | Emergency (ER) | payer MEDICARE, SELFPAY ==
[2020-12-15 17:01] VITALS: BP 198/89; PULSE 69; RESP 20; TEMP 37.4; O2SAT 100
--- NOTE | 2020-12-15 17:03 | DI.RAD.S_ITS ---
PROCEDURE: XR HUMERUS RT 2V INDICATIONS: upper arm pain no known injury TECHNIQUE: 2 views of the humerus were acquired. COMPARISON: None. FINDINGS: Bones: No fractures or dislocations. No suspicious bony lesions. Degenerative changes are seen, including mild subacromial spurring. Soft tissues: No suspicious soft tissue calcifications. The visualized lung demonstrates an unremarkable appearance. IMPRESSION: No acute fracture dislocation can be seen by plain film. If it would be helpful for clinical management decision making, please consider a dedicated, scheduled shoulder MRI for further evaluation (assuming that there is no contraindication). Dictated by: Ace Parsons M.D. on 12/15/2020 at 16:22 Approved by: Ace Parsons M.D. on 12/15/2020 at 16:23
--- NOTE | 2020-12-15 17:30 | ED.UPPEXIN ---
HPI - Extremity Injury (Upper) General Chief Complaint: Extremity Injury, Upper Stated Complaint: Rt arm pain, no known injury Time Seen by Provider: 12/15/20 17:05 Source: patient Mode of arrival: Ambulatory History of Present Illness HPI narrative: Patient is an 85-year-old female who presents with a right shoulder and arm pain ongoing for last couple of days. She said that she was walking home the other day and her arm suddenly got more painful. She said she had to carry her arm home. No numbness or tingling. She did not fall. She says that she has been washing sweeping and cleaning. Nothing out of the ordinary for her. She took Tylenol this morning it did not seem to help so she took 2 this afternoon and still has not. Related Data Home Medications Medication Instructions Recorded Confirmed CoQ10 100 mg PO DAILY 05/19/20 11/05/20 Vitamin E PO DAILY 05/19/20 08/16/20 aspirin 81 mg tablet,delayed 81 mg PO DAILY 05/19/20 11/05/20 release (Adult Aspirin Regimen) atorvastatin 20 mg tablet 20 mg PO DAILY 05/19/20 11/05/20 lisinopril 40 mg tablet 40 mg PO DAILY 05/19/20 11/05/20 multivitamin 1 tab PO DAILY 05/19/20 11/05/20 Previous Rx's Medication Instructions Recorded amlodipine 5 mg tablet 5 mg PO BID #180 tab 05/19/20 metoprolol succinate 25 mg 25 mg PO BEDTIME #90 tab 05/19/20 tablet,extended release 24 hr albuterol sulfate 90 mcg/actuation 2 puff INHALATION QID PRN #18 g 06/28/20 aerosol inhaler (ProAir HFA) Allergies Allergy/AdvReac Type Severity Reaction Status Date / Time Sulfa (Sulfonamide Allergy Mild Verified 08/16/20 09:19 Antibiotics) [SULFA (SULFONAMIDE ANTIBIOTICS)] Review of Systems Review of Systems Narrative: GENERAL: Denies chills,fever HEENT: Denies throat pain RESPIRATORY: Denies dyspnea, cough, wheezing CARDIOVASCULAR: Denies chest pain, palpitations GASTROINTESTINAL: Denies nausea, vomiting MUSCULOSKELETAL: See HPI SKIN: No rash, no laceration, no pruritus NEUROLOGIC: Denies weakness, dizziness, headache, numbness 8 point review of systems is negative except for those stated above and HPI Patient History Medical History Allergies (~1989) Cataracts, bilateral Chicken pox (~194) Chronic back pain Chronic cough (~2018) Endometriosis (~1968) Fractures Frequent UTI (~2015) Hearing loss History of recurrent ear infection History of squamous cell carcinoma History of urinary incontinence Hyperlipidemia Hypertension (~1994) Measles (~1939) Multiple sclerosis (~1970) Mumps (~1959) Preventative health care Reactive airway disease Recurrent sinusitis Squamous cell carcinoma (~2009) Vertigo Surgical History Anesthesia History of bladder suspension procedure (~1983) History of removal of cyst (~1977) History of stress test (~2018) History of surgical removal of squamous cell carcinoma of skin of [place] region (~2009) Family History Father Cancer Mother Stroke Brother History of heart disease Brother History of heart disease Knee problem Hypertension Grandmother Stroke Grandmother Stroke Social History household members: other Smoking Status: Never smoker alcohol intake: never Smoking Status: Never smoker Substance Use Type: does not use Exam Initial Vital Signs Initial Vital Signs: Vital Signs Temperature 99.4 F 12/15/20 17:01 Pulse Rate 69 12/15/20 17:01 Respiratory Rate 20 12/15/20 17:01 Blood Pressure 198/89 H 12/15/20 17:01 Pulse Oximetry 100 12/15/20 17:01 GENERAL: Alert pleasant 85-year-old pleasant female CARDIOVASCULAR: peripheral pulses in tact, cap refill <2 sec RESPIRATORY: No respiratory distress, speaks in full sentences without difficulty EXTREMITIES: Normal range of motion, no clubbing or edema. Neurovascularly intact Right upper extremity no clavicle step-off shoulder not deformed mildly tender over humerus sensation intact. Distal radial pulse intact NEUROLOGICAL: Cranial nerves II through XII grossly intact. Normal gait and speech. SKIN: Warm, dry, no petechiae, no rashes or lesions. Course Orders Ordered: ED Orders 12/15/20 17:03 XR humerus RT 2V Stat Discontinued Medications Ibuprofen (Ibuprofen 400 Mg Tablet) 400 mg PO NOW ONE Stop: 12/15/20 17:28 Last Admin: 12/15/20 17:41 Dose: 400 mg Documented by: YURI Vital Signs Vital signs: Vital Signs - 8 hr 12/15/20 17:01 Temperature 99.4 F Pulse Rate 69 Respiratory Rate 20 Blood Pressure 198/89 H Pulse Oximetry 100 MDM - Extremity Injury (Upper) Imaging Data Extremity x-ray #1: Radiologist's Impression: PROCEDURE: XR HUMERUS RT 2V INDICATIONS: upper arm pain no known injury TECHNIQUE: 2 views of the humerus were acquired. COMPARISON: None. FINDINGS: Bones: No fractures or dislocations. No suspicious bony lesions. Degenerative changes are seen, including mild subacromial spurring. Soft tissues: No suspicious soft tissue calcifications. The visualized lung demonstrates an unremarkable appearance. IMPRESSION: No acute fracture dislocation can be seen by plain film. If it would be helpful for clinical management decision making, please consider a dedicated, scheduled shoulder MRI for further evaluation (assuming that there is no contraindication). Dictated by: Ace Parsons M.D. on 12/15/2020 at 16:22 Discharge Plan Departure Patient Disposition: Home Clinical Impression: Shoulder sprain Instructions: DI for Shoulder Sprain Activity Restrictions/Additional Instructions: *You have been diagnosed with right shoulder sprain *What to do: At this time increase activity as tolerated. May use sling as needed for comfort please take it out and move it. *Continue to take medications as directed Tylenol 650 mg every 4-6 hours if needed for [id number] pain Ibuprofen 400 mg every 6-8 hours if needed for [id number] pain *Follow up with your primary care provider in 2-3 days *Return to ER if you should have increasing pain numbness tingling weakness or any new, worsening or concerning symptoms Prescriptions: No Action albuterol sulfate [ProAir HFA] 90 mcg/actuation HFA aerosol inhaler 2 puff inhalation QID PRN (Reason: shortness of breath or wheezing) Qty: 18 RF: 2 lisinopril 40 mg tablet 40 mg PO DAILY RF: 0 CoQ10 100 mg PO DAILY RF: 0 multivitamin Tablet 1 tab PO DAILY RF: 0 Vitamin E PO DAILY RF: 0 aspirin [Adult Aspirin Regimen] 81 mg tablet,delayed release (DR/EC) 81 mg PO DAILY RF: 0 atorvastatin 20 mg tablet 20 mg PO DAILY RF: 0 amlodipine 5 mg tablet 5 mg PO BID Qty: 180 RF: 1 metoprolol succinate 25 mg tablet extended release 24 hr 25 mg PO BEDTIME Qty: 90 RF: 1 Referrals: Sven Mattson DO [Primary Care Provider] -
[2020-12-15] MEDS: IBUPROFEN 400 MG TABLET PO (17:41)
== END 2020-12-15 17:56 | disposition home or self-care (01) ==
PROVIDERS: Emergency Provider Emergency Medicine; PCP Family Medicine
DX: S43.401A Unspecified sprain of right shoulder joint, initial encounter (principal); X58.XXXA Exposure to other specified factors, initial encounter; Y93.01 Activity, walking, marching and hiking
CPT/HCPCS: 73060; 99283

== ENCOUNTER → 2021-01-17 08:48 | Outpatient (CLI) | payer MEDICARE, SELFPAY ==
[2021-01-17 09:51] LABS: Add Manual Diff / Slide Review NO; Basophils Absolute Auto 0 /uL (0-100); Basophils Percent Auto 0.7 % (0-2); Eosinophils Absolute Auto 100 /uL (0-450); Eosinophils Percent Auto 2.1 % (2-4); Hemoglobin 14.5 g/dL (12.0-16.0); Lymphocytes Absolute Auto 1700 /uL (1100-4500); Lymphocytes Percent Auto 26.8 % (25-40); Mean Corpuscular HGB Conc 33.8 % (30-36); Mean Corpuscular Hemoglobin 31.3 PG (26-34); Mean Corpuscular Volume 92.5 fL (80-100); Monocytes Absolute Auto 600 /uL (0-900); Neutrophils Absolute Auto 3800 /uL (1500-7000); Neutrophils Percent Auto 60.4 % (50-75); Platelet Count 175 X10^3/uL (150-400); Red Blood Cell Count 4.65 X10^6/uL (4.0-5.2); Red Cell Distribution Width 14.3 % (11.6-14.8); White Blood Cell Count 6.3 X10^3/uL (4.5-11.0)
[2021-01-17 10:15] LABS: Alanine Aminotransferase 15 IU/L (<35); Albumin Globulin Ratio 1.4 (1.0-2.8); Alkaline Phosphatase 76 U/L (38-126); Aspartate Aminotransferase 24 IU/L (14-36); BUN Creatinine Ratio 19.6 (6-22); Bilirubin Total 0.8 mg/dL (0.2-1.3); Blood Urea Nitrogen 19 mg/dL (7-17); Calcium 9.6 mg/dL (8.4-10.2); Carbon Dioxide 28 mmol/L (22-32); Chloride 107 mmol/L (98-107); Estimated Glomerular Filt Rate 54.6 mL/min (>60); Globulin 2.8 g/dL (1.7-4.1); Glucose 93 mg/dL (80-110); HEMOLYSIS < 15 (0-50); Potassium 4.8 mmol/L (3.4-5.1); Sodium 142 mmol/L (137-145); Total Protein 6.8 g/dL (6.3-8.2)
[2021-01-17 10:33] LABS: Appearance Urine UA CLEAR; Bilirubin Urine UA NEGATIVE (NEGATIVE); Color Urine UA YELLOW; Glucose Urine UA NEGATIVE (Negative); Ketones Urine UA NEGATIVE (NEGATIVE); Leukocyte Esterase Urine UA TRACE (NEGATIVE); Nitrite Urine UA NEGATIVE (Negative); Occult Blood Urine UA NEGATIVE (Negative); Protein Urine UA NEGATIVE (Negative); Specific Gravity Urine UA 1.015 (1.000-1.035); Urobilinogen Urine UA 0.2 E.U./dL (0.2)
[2021-01-17 10:36] LABS: Bacteria Urine None Seen; RBC Urine None Seen (0-5/HPF); pH Urine UA 6.5 (4.5-8.0)
[2021-01-17 10:38] LABS: TSH w/ Reflex to FT4 1.36 uIU/mL (0.47-4.68)
[2021-01-17 10:39] LABS: Culture Indicated Urine Cult Not Indicated; Squamous Epithelial Cell Urine 5-10 /HPF (0-5/HPF); WBC Urine 1-5/HPF (0-5/HPF)
== END ==
PROVIDERS: PCP Family Medicine; Referring Provider Family Medicine; Visit Provider Family Medicine
DX: E78.2 Mixed hyperlipidemia (principal); G89.29 Other chronic pain; I10 Essential (primary) hypertension; M54.5 Low back pain
CPT/HCPCS: 36415; 80053; 81003; 81015; 84443; 85025

== ENCOUNTER → 2021-03-30 15:53 | Outpatient (CLI) | payer MEDICARE, SELFPAY ==
--- NOTE | 2021-03-30 15:54 | DI.MRI.S_ITS ---
PROCEDURE: MR HUMERUS RT WO CON INDICATIONS: Right arm pain TECHNIQUE: Noncontrast coronal and sagittal T1 spin echo and STIR; axial T1 spin echo and T2 fast spin echo with fat saturation through the right humerus. COMPARISON: [facility], CR, XR HUMERUS RT 2V, 12/15/2020, 17:08. FINDINGS: Image quality: Excellent. Bones: Not edema and traction cystic changes are seen at the greater tuberosity and posterosuperior humeral head near the rotator cuff tendon insertions. The visualized bone marrow otherwise demonstrates normal signal on all sequences. The overlying cortex appears intact. No fractures lines or intra-osseous lesions. Soft tissues: There is complete tearing of the proximal biceps long head tendon with retraction of the tendon stump distally and retraction of the proximal biceps myotendinous junction. Mild edema is seen at the mild tendinous junction. The proximal biceps short head tendon appears to remain intact. The distal biceps tendon is intact. The scanned muscles otherwise demonstrate normal overall bulk and internal signal. Subcutaneous tissues appear normal. No soft tissue masses are present. The rotator cuff tendons and other shoulder structures are not well evaluated on this exam that not tailored for evaluation of the shoulder. There is a small glenohumeral effusion and small subacromial/subdeltoid bursal effusion. The elbow is also not well evaluated. IMPRESSION: 1. Complete tearing of the proximal biceps long head tendon with distal tendon retraction and mild edema/muscle strain at the proximal myotendinous junction. 2. Mild traction edema and traction cystic changes at the rotator cuff tendon insertions onto the humeral head likely indicate underlying rotator cuff tendinopathy, which is not well evaluated on this exam. If indicated, a dedicated shoulder MRI could be obtained for evaluation. 3. Small glenohumeral effusion and small subacromial/subdeltoid and subcoracoid bursal effusions. Dictated by: Santi Clay M.D. on 03/31/2021 at 8:02 Approved by: Santi Clay M.D. on 03/31/2021 at 8:10
== END ==
PROVIDERS: PCP Family Medicine; Referring Provider Registered Nurse; Visit Provider Registered Nurse
DX: M79.601 Pain in right arm (principal); S46.111A Strain of muscle, fascia and tendon of long head of biceps, right arm, initial encounter; M25.411 Effusion, right shoulder
CPT/HCPCS: 73218

== ENCOUNTER 2021-05-19 10:16 | Emergency (ER) | payer MEDICARE, SELFPAY ==
[2021-05-19] VITALS (16 sets, daily range): BP systolic 158–214; BP diastolic 73–87; PULSE 56–68; RESP 15–31; TEMP 36.7; O2SAT 94–99; BMI 27.3
--- NOTE | 2021-05-19 10:25 | DI.RAD.S_ITS ---
PROCEDURE: XR CHEST 1V INDICATIONS: chest pain TECHNIQUE: One view of the chest was acquired. COMPARISON: [facility], , CHEST 2 VIEW, 08/04/2016, 16:43. FINDINGS: Surgical changes and devices: None. Lungs and pleura: Lungs are clear. No pleural effusions or pneumothorax. Mediastinum: Mediastinal contours appear normal. Heart size is normal. Bones and chest wall: No suspicious bony lesions. Overlying soft tissues appear unremarkable. IMPRESSION: No evidence acute pulmonary process. Dictated by: Jarad Reid M.D. on 05/19/2021 at 10:34 Approved by: Jarad Reid M.D. on 05/19/2021 at 10:44
[2021-05-19 11:02] LABS: Add Manual Diff / Slide Review NO; Basophils Absolute Auto 0 /uL (0-100); Basophils Percent Auto 0.8 % (0-2); Eosinophils Absolute Auto 100 /uL (0-450); Eosinophils Percent Auto 2.8 % (2-4); Hematocrit 41.6 % (36-46); Hemoglobin 14.2 g/dL (12.0-16.0); Lymphocytes Absolute Auto 1600 /uL (1100-4500); Lymphocytes Percent Auto 30.7 % (25-40); Mean Corpuscular HGB Conc 34.1 % (30-36); Mean Corpuscular Hemoglobin 31.1 PG (26-34); Monocytes Absolute Auto 600 /uL (0-900); Monocytes Percent Auto 12.3 % (3-14); Neutrophils Absolute Auto 2800 /uL (1500-7000); Neutrophils Percent Auto 53.4 % (50-75); Platelet Count 185 X10^3/uL (150-400); Red Blood Cell Count 4.57 X10^6/uL (4.0-5.2); Red Cell Distribution Width 14.1 % (11.6-14.8); White Blood Cell Count 5.2 X10^3/uL (4.5-11.0)
--- NOTE | 2021-05-19 11:07 | ED.CHESTPAIN ---
HPI - Chest Pain General Chief Complaint: Chest Pain Stated Complaint: CHEST PAINS Time Seen by Provider: 05/19/21 11:06 Source: patient Mode of arrival: Family Vehicle Limitations: no limitations Limitations: no limitations History of Present Illness HPI narrative: This is an 85-year-old female comes emergency department with complaint of chest pain that started about 930 the morning and lasted about 1045. She states she was writing cards and getting ready to go to a PT appointment. She took aspirin and Mylanta which did not resolve it she came here and resolved shortly after arrival. Patient states it was sort of the middle of her chest a little on the left side of her breast. It felt sort of sharp but also heavy. She denies any sweatiness, no shortness of breath, no nausea vomiting, no swelling, no pain in her abdomen back, arm or neck. She had a similar episode about 2 years ago she states she was sent home with but nitro sublingual. She did not take any the nitro today. She does have a history of hypertension she states she is on 3 for blood pressure medications including amlodipine, metoprolol, lisinopril and she takes atorvastatin. No medications for diabetes. She does take an aspirin 81 mg daily. No surgeries, no prior cardiac catheterization she thinks she had a stress test 1 or 2 years ago which was negative. 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 Mattson for her primary care. Her dad at a young age cancer her mother in her 90s. Her 90-year-old brother has stents and a pacer and her other brother at 51 of heart disease. No tobacco, alcohol or illicit. Related Data Home Medications Medication Instructions Recorded Confirmed CoQ10 100 mg PO DAILY 05/19/20 04/26/21 Vitamin E PO DAILY 05/19/20 04/26/21 aspirin 81 mg tablet,delayed 81 mg PO DAILY 05/19/20 04/26/21 release (Adult Aspirin Regimen) multivitamin 1 tab PO DAILY 05/19/20 04/26/21 Previous Rx's Medication Instructions Recorded albuterol sulfate 90 mcg/actuation 2 puff INHALATION QID PRN #18 g 06/28/20 aerosol inhaler (ProAir HFA) atorvastatin 20 mg tablet 20 mg PO DAILY #90 tab 03/17/21 amlodipine 5 mg tablet See Rx Instructions .ROUTE 03/22/21 .COMPLEX #180 tab lisinopril 20 mg tablet 20 mg PO BID #180 tab 04/25/21 metoprolol succinate 25 mg 25 mg PO BEDTIME #90 tab 04/25/21 tablet,extended release 24 hr Allergies Allergy/AdvReac Type Severity Reaction Status Date / Time Sulfa (Sulfonamide Allergy Mild Verified 05/19/21 10:28 Antibiotics) [SULFA (SULFONAMIDE ANTIBIOTICS)] Review of Systems Review of Systems ROS Unobtainable: All systems reviewed & are unremarkable except as noted in HPI and below Patient History Medical History Allergies (~1989) Cataracts, bilateral Chicken pox (~194) Chronic back pain Chronic cough (~2018) Endometriosis (~1968) Fractures Frequent UTI (~2015) Hearing loss History of recurrent ear infection History of squamous cell carcinoma History of urinary incontinence Hyperlipidemia Hypertension (~1994) Measles (~193) Multiple sclerosis (~1969) Mumps (~1959) Preventative health care Reactive airway disease Recurrent sinusitis Seasonal allergic rhinitis Squamous cell carcinoma (~2009) Vertigo Surgical History Anesthesia History of bladder suspension procedure (~1983) History of removal of cyst (~1977) History of stress test (~2018) History of surgical removal of squamous cell carcinoma of skin of hoahaoism region (~2009) Family History Father Cancer Mother Stroke Brother History of heart disease Brother History of heart disease Knee problem Hypertension Grandmother Stroke Grandmother Stroke Social History household members: other Smoking Status: Never smoker alcohol intake: never Smoking Status: Never smoker Substance Use Type: does not use Exam Narrative Exam Narrative: GENERAL: Alert and oriented x three, elderly female in mild distress. HEENT: Head normocephalic, atraumatic, EOMI, pupils reactive, face symmetric, moist mucous membranes NECK: Supple, full range of motion CARDIOVASCULAR: Regular rate and rhythm without murmurs, rubs or gallops. RESPIRATORY: Breath sounds equal bilaterally, no wheezes rales or rhonchi. No tachypnea accessory muscle use. Speaks in full sentences. ABDOMEN: Soft, mild epigastric tenderness. No other upper abdominal or lower abdominal tenderness on exam. Bowel sounds all 4 quadrants. No guarding or rebound, rigidity, no mass. No bruit or pulsatile mass. : No CVA tenderness EXTREMITIES: Normal range of motion, no clubbing or edema. Neurovascularly intact NEUROLOGICAL: Cranial nerves II through XII grossly intact. Moving all extremities SKIN: Warm, dry, no petechiae, no rashes or lesions. Initial Vital Signs Initial Vital Signs: Vital Signs Temperature 98.1 F 05/19/21 10:26 Pulse Rate 68 05/19/21 10:26 Respiratory Rate 16 05/19/21 10:26 Blood Pressure 201/81 H 05/19/21 10:26 Pulse Oximetry 99 05/19/21 10:26 Course Orders Ordered: ED Orders 05/19/21 10:51 Complete Blood Count AUTO DIFF Stat Comprehensive Metabolic Panel Stat Lipase Stat Troponin & CK Cardiac Panel Stat 05/19/21 13:02 Trop I [Troponin I] Stat Discontinued Medications Nitroglycerin (Nitroglycerin 0.4 Mg Sl Tab) 0.4 mg SL NOW ONE Stop: 05/19/21 12:00 Last Admin: 05/19/21 12:11 Dose: 0.4 mg Documented by: ATAYLOR Reevaluation(s) Reevaluation #1: Patient continues to be asymptomatic in the department. BP has been improving. Patient is reluctant to stay for observation and stress testing secondary to needing to attend a tomorrow. She is agreeable to testing and treatment and who will contact her primary care team to help facilitate this. Patient expresses her understanding that I am concerned about cardiac cause of her chest pain and if she has recurrent symptoms she needs to return. She does take aspirin daily and has nitro SL at home and was encouraged to continue these. Consultations Consultation #1: Dr. Willett is covering for Dr. Mattson. He is happy to help facilitate follow-up for the patient in the short term so she cannot stress testing agrees that patient is high risk. Vital Signs Vital signs: Vital Signs - 8 hr 05/19/21 11:37 05/19/21 11:38 05/19/21 12:00 Pulse Rate 64 62 62 Respiratory Rate 20 15 19 Blood Pressure 214/87 H Pulse Oximetry 94 99 98 05/19/21 12:01 05/19/21 12:31 05/19/21 12:45 Pulse Rate 61 67 62 Respiratory Rate 28 H 20 16 Blood Pressure 203/85 H 171/80 H Pulse Oximetry 99 96 97 05/19/21 13:00 05/19/21 13:15 05/19/21 13:30 Pulse Rate 60 56 L 57 L Respiratory Rate 19 21 16 Blood Pressure 168/82 H 161/73 H Pulse Oximetry 98 99 98 05/19/21 13:31 05/19/21 13:45 05/19/21 14:00 Pulse Rate 60 58 L 56 L Respiratory Rate 20 31 H 17 Blood Pressure 193/77 H 182/76 H Pulse Oximetry 99 98 98 05/19/21 14:01 05/19/21 14:15 05/19/21 14:45 Pulse Rate 58 L 66 63 Respiratory Rate 21 19 21 Blood Pressure 158/84 H 164/74 H Pulse Oximetry 98 98 99 MDM - Chest Pain Lab Data Result diagrams: 05/19/21 10:51 05/19/21 10:51 Labs: Lab Results 05/19/21 05/19/21 05/19/21 Range/Units 10:51 10:51 13:02 WBC 5.2 (4.5-11.0) X10^3/uL RBC 4.57 (4.0-5.2) X10^6/uL Hgb 14.2 (12.0-16.0) g/dL Hct 41.6 (36-46) % MCV 91.0 (80-100) fL MCH 31.1 (26-34) PG MCHC 34.1 (30-36) % RDW 14.1 (11.6-14.8) % Plt Count 185 (150-400) X10^3/uL Neut % (Auto) 53.4 (50-75) % Lymph % (Auto) 30.7 (25-40) % Clinch % (Auto) 12.3 (3-14) % Eos % (Auto) 2.8 (2-4) % Baso % (Auto) 0.8 (0-2) % Neut # (Auto) 2800 (4969-9111) /uL Lymph # (Auto) 1600 (7732-6780) /uL Clinch # (Auto) 600 (0-900) /uL Eos # (Auto) 100 (0-450) /uL Baso # (Auto) 0 (0-100) /uL Sodium 142 (137-145) mmol/L Potassium 4.4 (3.4-5.1) mmol/L Chloride 104 (98-107) mmol/L Carbon Dioxide 29 (22-32) mmol/L BUN 21 H (7-17) mg/dL Creatinine 1.09 H (0.52-1.04) mg/dL Estimated GFR 47.7 L (>60) mL/min BUN/Creatinine Ratio 19.3 (6-22) Glucose 95 (80-110) mg/dL Calcium 9.9 (8.4-10.2) mg/dL Total Bilirubin 0.7 (0.2-1.3) mg/dL AST 28 (14-36) IU/L ALT 17 (<35) IU/L Alkaline Phosphatase 77 (38-126) U/L Total Creatine Kinase 111 (30-135) U/L CK-MB (CK-2) 1.79 (<2.37) ng/mL CK-MB (CK-2) Rel Index 1.6 (1.5-5.0) % Troponin I < 0.012 < 0.012 (0.01-0.034) ng/mL Total Protein 6.8 (6.3-8.2) g/dL Albumin 4.1 (3.5-5.0) g/dL Globulin 2.7 (1.7-4.1) g/dL Albumin/Globulin Ratio 1.5 (1.0-2.8) Lipase 97 (23-300) U/L Urine Dip Bedside Urine Glucose Negative Bedside Urine Bilirubin - Negative Bedside Urine Ketone - Negative Urine Specific [place] 1.015 Bedside Urine Occult Blood - Negative Bedside Urine pH 6.0 Bedside Urine Protein - Negative Bedside Urine Urobilinogen - Negative Bedside Urine Nitrite - Negative Bedside Urine Leukocytes - Negative Esterase Imaging Data Chest x-ray: Radiologist's Impression: Tea Gould?(Davina)??85??F??1935 ? Allergy/Adv: Sulfa (Sulfonamide Antibiotics) (More??) Close Chest X-Ray (Signed) Jarad Reid - 05/19/21 DI Result 03/30/21 Humerus MRI (Signed) Santi Clay - 03/30/21 Humerus X-Ray (Signed) Ace Parsons - 12/15/20 Telemetry Strips 11/05/20 Lumbar Spine X-Ray (Signed) Dane Britton - 08/16/20 Lumbar Spine X-Ray (Cancelled) 08/16/20 Abdomen/Pelvis CT (Signed) Freeman Hernandez - 12/16/[address] (Signed) Fernando Chavez - 12/30/18 Radiology Report (Cancelled) Bbee Fatima - 12/18/18 Myocardial Perfusion Scan Nuc Med (Signed) Bebe Fatima - 12/17/18 Abdomen/Pelvis CT (Signed) Dane Britton - 09/06/18 Launch?Image [address] [address] XRay Report Signed Patient: Tea Gould MR#: [id number] : 1935 Acct:[id number] Age/Sex: 85 / F Date of Service: 05/19/21 Loc: ED Accession Number: [id number] ?? Procedure: XR chest 1V Ordering Provider: Su Fuentes D.O. PROCEDURE:? XR CHEST 1V ? INDICATIONS:? chest pain ? TECHNIQUE:? One view of the chest was acquired.? ? COMPARISON:? [facility], , CHEST 2 VIEW, 08/04/2016, 16:43. ? FINDINGS:? ? Surgical changes and devices:? None.? ? Lungs and pleura:? Lungs are clear.? No pleural effusions or pneumothorax.? ? Mediastinum:? Mediastinal contours appear normal.? Heart size is normal.? ? Bones and chest wall:? No suspicious bony lesions.? Overlying soft tissues appear unremarkable.? ? IMPRESSION:? No evidence acute pulmonary process. ? ? ? Dictated by: Jarad Reid M.D. on 05/19/2021 at 10:34 ? ? Approved by: Jarad Reid M.D. on 05/19/2021 at 10:44?? ECG Data Attestation: I personally reviewed and interpreted this ECG as follows: Prior ECG tracings: not available for review Interpretation: Sinus bradycardia rate of 182 QRS of 108 QTC 414. Anterior septal infarct age indeterminate. No prior for comparison. Sinus bradycardia, LAD. Anteroseptal infarct appears similar to prior from earlier today. Rate of 56, OK 184, QRS of 104 and QTC of 414. No acute ST elevation depression noted. MDM Narrative Medical decision making narrative: This is an 85-year-old female comes emergency department with complaint of chest pain that had resolved upon arrival. She is hypertensive. Her chest pains resolved but was given 1 sublingual nitro as she is bradycardic but not tolerate additional beta-reginald or calcium channel reginald well. Reviewed patient's labs and findings. Repeat troponins and EKGs do not show any acute changes. She continues to be asymptomatic in the department. Her Blood pressure did improve. She and I discussed cardiac observation as she has significant family history and risk factors. She had negative stress testing in 2019 but I am still suspicious for potential cardiac cause. Patient politely declines observation would like to return home she is supposed to attend a tomorrow. I did contact her primary care office to help facilitate. She is to continue her aspirin and medications and monitor her blood pressure. Discharge Plan Departure Patient Disposition: Home Clinical Impression: Chest pain Activity Restrictions/Additional Instructions: Follow-up with your physician for recheck, I would recommend having repeat stress testing even thought your test was negative in 2019. Call your doctor's office today or tomorrow. I have been come in contact with Dr. Mattson's office to help facilitate follow up. Continue your aspirin daily. Continue blood pressure medications as prescribed. Please return for new or worsening chest pain, shortness of breath, lightheadedness or passing out, swelling of extremities or other new or concerning symptoms. Prescriptions: No Action albuterol sulfate [ProAir HFA] 90 mcg/actuation HFA aerosol inhaler 2 puff inhalation QID PRN (Reason: shortness of breath or wheezing) Qty: 18 2RF atorvastatin 20 mg tablet 20 mg PO DAILY Qty: 90 1RF amlodipine 5 mg tablet See Rx Instructions .ROUTE .COMPLEX Qty: 180 0RF Dose Instruction: TAKE 1 TABLET BY MOUTH TWICE DAILY Rx Instructions: TAKE 1 TABLET BY MOUTH TWICE DAILY lisinopril 20 mg tablet 20 mg PO BID Qty: 180 3RF metoprolol succinate 25 mg tablet extended release 24 hr 25 mg PO BEDTIME Qty: 90 3RF CoQ10 100 mg PO DAILY 0RF multivitamin Tablet 1 tab PO DAILY 0RF Vitamin E PO DAILY 0RF aspirin [Adult Aspirin Regimen] 81 mg tablet,delayed release (DR/EC) 81 mg PO DAILY 0RF Referrals: Sven Mattson DO [Primary Care Provider] -
[2021-05-19 11:11] LABS: Alanine Aminotransferase 17 IU/L (<35); Albumin 4.1 g/dL (3.5-5.0); Albumin Globulin Ratio 1.5 (1.0-2.8); Alkaline Phosphatase 77 U/L (38-126); Aspartate Aminotransferase 28 IU/L (14-36); BUN Creatinine Ratio 19.3 (6-22); Bilirubin Total 0.7 mg/dL (0.2-1.3); Blood Urea Nitrogen 21 mg/dL (7-17); Calcium 9.9 mg/dL (8.4-10.2); Carbon Dioxide 29 mmol/L (22-32); Chloride 104 mmol/L (98-107); Creatine Kinase 111 U/L (30-135); Estimated Glomerular Filt Rate 47.7 mL/min (>60); Globulin 2.7 g/dL (1.7-4.1); Glucose 95 mg/dL (80-110); HEMOLYSIS < 15 (0-50); Lipase 97 U/L (23-300); Potassium 4.4 mmol/L (3.4-5.1); Sodium 142 mmol/L (137-145); Total Protein 6.8 g/dL (6.3-8.2)
[2021-05-19 11:22] LABS: Troponin I < 0.012 ng/mL (0.01-0.034)
[2021-05-19 11:26] LABS: CKMB % Relative Index 1.6 % (1.5-5.0); Creatine Kinase MB 1.79 ng/mL (<2.37)
[2021-05-19] MEDS: NITROGLYCERIN 0.4 MG SL TAB SL (12:11)
[2021-05-19 13:41] LABS: Troponin I < 0.012 ng/mL (0.01-0.034)
== END 2021-05-19 14:56 | disposition home or self-care (01) ==
PROVIDERS: Emergency Provider Emergency Medicine; PCP Family Medicine
DX: R07.9 Chest pain, unspecified (principal); I10 Essential (primary) hypertension; Z79.82 Long term (current) use of aspirin; Z79.899 Other long term (current) drug therapy
CPT/HCPCS: 36415; 71045; 80053; 81003; 82550; 82553; 83690; 84484; 85025; 93005; 93010; 99284

== ENCOUNTER → 2021-07-06 10:02 | Outpatient (CLI) | payer MEDICARE, SELFPAY ==
[2021-07-06 12:09] LABS: COVID19 -Nasal RAPID Negative (Negative)
== END ==
PROVIDERS: PCP Family Medicine; Visit Provider Family Medicine Sleep Medicine
DX: Z20.822 Contact with and (suspected) exposure to COVID-19 (principal)
CPT/HCPCS: 87635; C9803

== ENCOUNTER → 2021-07-07 09:36 | Outpatient (CLI) | payer MEDICARE, SELFPAY ==
--- NOTE | 2021-07-07 14:33 | P.PCN_ITS ---
Cardiac Stress Test Report Referral & Results Date Patient Seen: 07/07/21 Requesting provider: Sven Mattson Indication: Coronary artery disease Rest ECG: Unremarkable with exception of nonspecific interventricular conduction delay, old Procedure Note: After both written and verbal informed consent the patient had an IV started by the diagnostic imaging RN and then was hooked up to the treadmill monitoring system. The patient was placed on the treadmill with the usual Melecio protocol. Patient was unable to increase her heart rate because of her beta-reginald t herapy and became quite dyspneic. Therefore this was converted to a Lexiscan procedure. Treadmill was then reduced to 1 mile an hour with no elevation and she was then injected with the [place] scan material. The Cardiolite was then immediately administered. The patient spent an additional 3 minutes on the treadmill before being returned to the [facility] in the supine position. The patient had a normal response to all infused materials. At the end of patient's exercise just before conversion to Lexiscan that began to be significant ST-T segment changes in the inferior leads. This persisted throughout the monitoring. Until the recovery portion of the test began. Then I began to slowly resolve. This appears to be asymptomatic of the patient get dyspneic with any activity Normal blood pressure response to exercise blunted heart rate response No dysrhythmias Impression: Ischemic type changes in inferior leads as above. Please see perfusion imaging for further details Please note: Actual ECG tracings can be found in the PACS system.
--- NOTE | 2021-07-07 18:07 | DI.NM.S_ITS ---
DATE OF SERVICE: 07/07/2021 PROCEDURE: Pharmacological perfusion study. INDICATION: Chest pain, hypertension. RADIOPHARMACEUTICAL: 24.2 millicurie technetium-99m Myoview IV was injected at stress and 11.1 millicurie technetium-99m Myoview IV was injected at rest. CARDIAC STRESS: The patient initially attempted exercise stress test. However, she was able to walk only for 3 minutes and 15 seconds. Heart rate did not go up. The patient felt fatigue, hence exercise stress test was discontinued. The patient was given Lexiscan, as per protocol. No chest pain. She remained hemodynamically stable during Lexiscan. Baseline rhythm was sinus with partial left bundle branch block. During stress, the patient developed left bundle branch block with secondary repolarization changes. RAW DATA: There is increased subdiaphragmatic activity. GATED STUDY: Resting LV ejection fraction 73 and stress LV ejection fraction 89 percent without any obvious wall motion abnormalities. Resting end-diastolic volume 79 mL. TID ratio 0.56, which is within normal limits. Lung/heart ratio 0.26, which is within normal limits. MYOCARDIAL PERFUSION SCAN: Stress supine images revealed normal myocardial perfusion. On resting supine, there was moderately decreased perfusion of inferoapex and distal inferolateral wall. However, the stress supine images revealed normal myocardial perfusion. There were no prone images. The patient was scanned with left arm down. CONCLUSION: Stress supine images revealed normal myocardial perfusion. Hence, I will call this study a normal myocardial perfusion study. Poor exercise tolerance. She felt fatigue, hence she was given intravenous Lexiscan. Baseline rhythm sinus with partial left bundle branch block. During Lexiscan, she developed a complete left bundle branch block, which reverted to baseline 1 minute in recovery. Preserved left ventricular function. Overall, this is a low-risk myocardial perfusion scan. The patient had an exercise perfusion study in December,, at that time also she had normal myocardial perfusion and poor exercise tolerance. Tea Gould - GENE/zenon/floyd doc#: [id number]/job#: [id number] dd: 07/07/2021 17:19:00 dt: 07/07/2021 17:47:00 DICTATING MD/COPIES TO: Bebe Fatima MD COPIES MNE: ZHANE;
== END ==
PROVIDERS: PCP Family Medicine; Referring Provider Family Medicine; Visit Provider Family Medicine
DX: I25.9 Chronic ischemic heart disease, unspecified (principal); R07.9 Chest pain, unspecified; I10 Essential (primary) hypertension
CPT/HCPCS: 78452; 93016; 93017; 93018; A9502; J2785

== ENCOUNTER 2021-12-12 10:55 | Emergency (ER) | payer MEDICARE, SELFPAY ==
[2021-12-12 11:04] VITALS: BP 145/65; PULSE 72; RESP 18; TEMP 39.4; O2SAT 96; BMI 26.6
--- NOTE | 2021-12-12 11:10 | DI.RAD.S_ITS ---
PROCEDURE: XR CHEST 1V INDICATIONS: suspected sepsis TECHNIQUE: One view of the chest was acquired. COMPARISON: [facility], CR, XR CHEST 1V, 05/19/2021, 10:26. FINDINGS: Surgical changes and devices: None. Lungs and pleura: Lungs are clear. No pleural effusions or pneumothorax. Mediastinum: Mediastinal contours appear normal. Heart size is normal. Bones and chest wall: No suspicious bony lesions. Overlying soft tissues appear unremarkable. IMPRESSION: No acute cardiopulmonary pathology. Dictated by: Dane Britton M.D. on 12/12/2021 at 11:29 Approved by: Dane Britton M.D. on 12/12/2021 at 11:30
[2021-12-12 11:34] LABS: COVID19 -Nasal RAPID POSITIVE (Negative)
[2021-12-12 11:48] LABS: Add Manual Diff / Slide Review NO; Basophils Absolute Auto 0 /uL (0-100); Basophils Percent Auto 0.3 % (0-2); Eosinophils Absolute Auto 0 /uL (0-450); Hematocrit 40.8 % (36-46); Hemoglobin 13.8 g/dL (12.0-16.0); Lymphocytes Absolute Auto 500 /uL (1100-4500); Lymphocytes Percent Auto 6.5 % (25-40); Mean Corpuscular HGB Conc 33.8 % (30-36); Mean Corpuscular Hemoglobin 30.7 PG (26-34); Monocytes Absolute Auto 600 /uL (0-900); Monocytes Percent Auto 7.9 % (3-14); Neutrophils Absolute Auto 6600 /uL (1500-7000); Neutrophils Percent Auto 85.3 % (50-75); Platelet Count 153 X10^3/uL (150-400); Red Blood Cell Count 4.48 X10^6/uL (4.0-5.2); White Blood Cell Count 7.8 X10^3/uL (4.5-11.0)
[2021-12-12] MEDS: ACETAMINOPHEN 325 MG TABLET 975 MG PO (11:57)
[2021-12-12 11:58] LABS: Lactate (Lactic Acid) 0.9 mmol/L (0.7-2.1)
[2021-12-12] MEDS: SODIUM CHLORIDE 0.9% 1,000 ML 1000 ML IV (11:59)
[2021-12-12 12:01] LABS: Alanine Aminotransferase 13 IU/L (<35); Albumin 4.1 g/dL (3.5-5.0); Albumin Globulin Ratio 1.4 (1.0-2.8); Alkaline Phosphatase 74 U/L (38-126); Aspartate Aminotransferase 23 IU/L (14-36); BUN Creatinine Ratio 19.1 (6-22); Bilirubin Total 0.7 mg/dL (0.2-1.3); Blood Urea Nitrogen 17 mg/dL (7-17); Carbon Dioxide 24 mmol/L (22-32); Chloride 105 mmol/L (98-107); Estimated Glomerular Filt Rate > 60 mL/min (>60); Glucose 125 mg/dL (80-110); HEMOLYSIS < 15 (0-50); Lipase 65 U/L (23-300); Sodium 137 mmol/L (137-145); Total Protein 7.1 g/dL (6.3-8.2)
[2021-12-12 12:16] LABS: Procalcitonin 0.06 ng/mL (<0.5)
--- NOTE | 2021-12-12 12:25 | ED.URI ---
HPI - URI/Sore Throat General Chief Complaint: Upper Respiratory Symptoms Stated Complaint: sore throat, chills, unsteady, fever Time Seen by Provider: 12/12/21 11:50 Source: patient Mode of arrival: Wheelchair History of Present Illness HPI Narrative: Patient is a 86-year-old female history of hypertension presents today with fever and sore throat. She said her sore throat her pre bad yesterday she tried multiple home remedies to make it go away she says her throat actually does not feel as bad today but she does have a fever 102 here in the emergency department. She denies any cough chest pain or shortness of breath. She has no nausea vomiting. She overall is feeling a bit better. Her COVID test in the emergency department is positive. He states no she has family staying with her from [place] for the last 2 weeks. She thought 1 of the grand children may be sick but she was not sure. Related Data Home Medications Medication Instructions Recorded Confirmed CoQ10 100 mg PO DAILY 05/19/20 08/16/21 Vitamin E PO DAILY 05/19/20 08/16/21 aspirin 81 mg tablet,delayed 81 mg PO DAILY 05/19/20 08/16/21 release (Adult Aspirin Regimen) multivitamin 1 tab PO DAILY 05/19/20 08/16/21 Previous Rx's Medication Instructions Recorded lisinopril 20 mg tablet 20 mg PO BID #180 tabs 04/25/21 metoprolol succinate 25 mg 25 mg PO BID #180 tabs 05/24/21 tablet,extended release 24 hr nitroglycerin 0.4 mg sublingual 0.4 mg sublingual Q5M PRN chest 05/24/21 tablet pain #20 tabs albuterol sulfate 90 mcg/actuation 2 puff inhalation QID PRN 09/05/21 aerosol inhaler (ProAir HFA) shortness of breath or wheezing #18 grams amlodipine 5 mg tablet See Rx Instructions .Route 09/22/21 .COMPLEX #180 tabs atorvastatin 20 mg tablet 20 mg PO DAILY #90 tabs 09/22/21 nirmatrelvir 300 mg (150 mg x See Rx Instructions PO .COMPLEX 12/12/21 2)-ritonavir 100 mg tablet (EUA) #30 tabs (Paxlovid 300 mg () Allergies Allergy/AdvReac Type Severity Reaction Status Date / Time Sulfa (Sulfonamide Allergy Mild Verified 08/16/21 08:02 Antibiotics) [SULFA (SULFONAMIDE ANTIBIOTICS)] Review of Systems Review of Systems Narrative: GENERAL: + fever HEENT: + sore throat RESPIRATORY: Denies dyspnea, cough, wheezing, hemoptysis, sputum. CARDIOVASCULAR: Denies chest pain, palpitations, orthopnea, edema GASTROINTESTINAL: Denies nausea, vomiting, abdominal pain, diarrhea, constipation, melena. : Denies dysuria, frequency, incontinence, hematuria, urinary retention, flank pain. MUSCULOSKELETAL: Denies weakness, joint pain, or bony pain SKIN: No rash, no erythema, no pruritus NEUROLOGIC: Denies weakness, dizziness, headache, numbness, change in speech, confusion PSYCHIATRIC: No concerning psychosocial issues. 12 point review of systems is negative except for those stated above and HPI Patient History Medical History Allergies (~1989) Cataracts, bilateral Chicken pox (~194) Chronic back pain Chronic cough (~2018) Endometriosis (~1968) Fractures Frequent UTI (~2015) Hearing loss History of recurrent ear infection History of squamous cell carcinoma History of urinary incontinence Hyperlipidemia Hypertension (~1994) Measles (~193) Multiple sclerosis (~1970) Mumps (~1960) Preventative health care Reactive airway disease Recurrent sinusitis Seasonal allergic rhinitis Squamous cell carcinoma (~2009) Vertigo Surgical History Anesthesia History of bladder suspension procedure (~1983) History of removal of cyst (~1977) History of stress test (~2018) History of surgical removal of squamous cell carcinoma of skin of restorationism region (~2009) Family History Father Cancer Mother Stroke Brother History of heart disease Brother History of heart disease Knee problem Hypertension Grandmother Stroke Grandmother Stroke Social History household members: other Smoking Status: Never smoker alcohol intake: never Smoking Status: Never smoker Substance Use Type: does not use Exam Initial Vital Signs Initial Vital Signs: Vital Signs Temperature 102.9 F H 12/12/21 11:04 Pulse Rate 72 12/12/21 11:04 Respiratory Rate 18 12/12/21 11:04 Blood Pressure 145/65 H 12/12/21 11:04 Pulse Oximetry 96 12/12/21 11:04 Oxygen Delivery Method 12/12/21 11:04 GENERAL: Alert well-appearing 86-year-old female appears younger than stated age and in no acute distress. HEENT: Head atraumatic,EOMI, pupils reactive, face symmetric, moist mucous membranes CARDIOVASCULAR: Regular rate and rhythm without murmurs, rubs or gallops. RESPIRATORY: Breath sounds equal bilaterally, no wheezes rales or rhonchi. ABDOMEN: Soft, nontender. Normoactive bowel sounds all 4 quadrants. No guarding or rebound. : No CVA tenderness EXTREMITIES: Normal range of motion, no clubbing or edema. Neurovascularly intact NEUROLOGICAL: Alert and oriented x4.Normal gait and speech. Cranial nerves II through XII grossly intact. SKIN: Warm, dry, no laceration, no petechiae, no rashes or lesions. Course Orders Ordered: ED Orders 12/12/21 11:10 XR chest 1V Stat EKG-12 Lead Stat RT Consult Eval and Treat NOW 12/12/21 11:15 COVID19 -Nasal RAPID/Pre-Proc Stat 12/12/21 11:30 Complete Blood Count AUTO DIFF Stat Comprehensive Metabolic Panel Stat Lactate (Lactic Acid) Stat Lipase Stat Procalcitonin Stat 12/12/21 12:09 Blood Culture Stat Discontinued Medications Acetaminophen (Acetaminophen 325 Mg Tablet) 975 mg PO NOW ONE Stop: 12/12/21 11:10 Last Admin: 12/12/21 11:57 Dose: 975 mg Documented By: AT Sodium Chloride (Normal Saline 0.9%) 1,000 mls @ 1,000 mls/hr IV BOLUS ONE Stop: 12/12/21 12:09 Last Admin: 12/12/21 11:59 Dose: 1,000 mls/hr Documented By: AT Vital Signs Vital signs: Vital Signs - 8 hr 12/12/21 11:04 12/12/21 13:07 12/12/21 13:00 Temperature 102.9 F H 98.5 F Pulse Rate 72 64 Respiratory Rate 18 Blood Pressure 145/65 H Pulse Oximetry 96 94 Oxygen Delivery Method Room Air 12/12/21 13:01 12/12/21 13:01 Temperature Pulse Rate 67 Respiratory Rate Blood Pressure 145/64 H Pulse Oximetry 95 Oxygen Delivery Method MDM - URI/Sore Throat Lab Data Result diagrams: 12/12/21 11:30 12/12/21 11:30 Labs: Lab Results 12/12/21 12/12/21 12/12/21 Range/Units 11:15 11:30 11:30 WBC 7.8 (4.5-11.0) X10^3/uL RBC 4.48 (4.0-5.2) X10^6/uL Hgb 13.8 (12.0-16.0) g/dL Hct 40.8 (36-46) % MCV 91.0 (80-100) fL MCH 30.7 (26-34) PG MCHC 33.8 (30-36) % RDW 14.0 (11.6-14.8) % Plt Count 153 (150-400) X10^3/uL Neut % (Auto) 85.3 H (50-75) % Lymph % (Auto) 6.5 L (25-40) % [place] % (Auto) 7.9 (3-14) % Eos % (Auto) 0.0 L (2-4) % Baso % (Auto) 0.3 (0-2) % Neut # (Auto) 6600 (9278-5926) /uL Lymph # (Auto) 500 L (1257-2057) /uL [place] # (Auto) 600 (0-900) /uL Eos # (Auto) 0 (0-450) /uL Baso # (Auto) 0 (0-100) /uL Sodium 137 (137-145) mmol/L Potassium 4.0 (3.4-5.1) mmol/L Chloride 105 (98-107) mmol/L Carbon Dioxide 24 (22-32) mmol/L BUN 17 (7-17) mg/dL Creatinine 0.89 (0.52-1.04) mg/dL Estimated GFR > 60 (>60) mL/min BUN/Creatinine Ratio 19.1 (6-22) Glucose 125 H (80-110) mg/dL Lactate (0.7-2.1) mmol/L Calcium 9.0 (8.4-10.2) mg/dL Total Bilirubin 0.7 (0.2-1.3) mg/dL AST 23 (14-36) IU/L ALT 13 (<35) IU/L Alkaline Phosphatase 74 (38-126) U/L Total Protein 7.1 (6.3-8.2) g/dL Albumin 4.1 (3.5-5.0) g/dL Globulin 3.0 (1.7-4.1) g/dL Albumin/Globulin Ratio 1.4 (1.0-2.8) Lipase 65 (23-300) U/L Procalcitonin 0.06 (<0.5) ng/mL SARS-CoV-2 (PCR) Positive H (Negative) 12/12/21 Range/Units 11:30 WBC (4.5-11.0) X10^3/uL RBC (4.0-5.2) X10^6/uL Hgb (12.0-16.0) g/dL Hct (36-46) % MCV (80-100) fL MCH (26-34) PG MCHC (30-36) % RDW (11.6-14.8) % Plt Count (150-400) X10^3/uL Neut % (Auto) (50-75) % Lymph % (Auto) (25-40) % [place] % (Auto) (3-14) % Eos % (Auto) (2-4) % Baso % (Auto) (0-2) % Neut # (Auto) (7203-1178) /uL Lymph # (Auto) (1893-9900) /uL [place] # (Auto) (0-900) /uL Eos # (Auto) (0-450) /uL Baso # (Auto) (0-100) /uL Sodium (137-145) mmol/L Potassium (3.4-5.1) mmol/L Chloride (98-107) mmol/L Carbon Dioxide (22-32) mmol/L BUN (7-17) mg/dL Creatinine (0.52-1.04) mg/dL Estimated GFR (>60) mL/min BUN/Creatinine Ratio (6-22) Glucose (80-110) mg/dL Lactate 0.9 (0.7-2.1) mmol/L Calcium (8.4-10.2) mg/dL Total Bilirubin (0.2-1.3) mg/dL AST (14-36) IU/L ALT (<35) IU/L Alkaline Phosphatase (38-126) U/L Total Protein (6.3-8.2) g/dL Albumin (3.5-5.0) g/dL Globulin (1.7-4.1) g/dL Albumin/Globulin Ratio (1.0-2.8) Lipase (23-300) U/L Procalcitonin (<0.5) ng/mL SARS-CoV-2 (PCR) (Negative) Imaging Data Chest x-ray: Radiologist's Impression: Signed Patient: Tea Gould MR#: [id number] : 1935 Acct:[id number] Age/Sex: 86 / F Date of Service: 12/12/21 Loc: ED Accession Number: [id number] ?? Procedure: XR chest 1V Ordering Provider: Debi Daniel D.O. PROCEDURE:? XR CHEST 1V ? INDICATIONS:? suspected sepsis ? TECHNIQUE:? One view of the chest was acquired.? ? COMPARISON:? [facility], , XR CHEST 1V, 05/19/2021, 10:26. ? FINDINGS:? ? Surgical changes and devices:? None.? ? Lungs and pleura:? Lungs are clear.? No pleural effusions or pneumothorax.? ? Mediastinum:? Mediastinal contours appear normal.? Heart size is normal.? ? Bones and chest wall:? No suspicious bony lesions.? Overlying soft tissues appear unremarkable.? ? IMPRESSION:? No acute cardiopulmonary pathology. ? ? Dictated by: Dane Britton M.D. on 12/12/2021 at 11:29 ? ? ECG Data Interpretation: Normal sinus rhythm rate 65 AK interval 184 QRS [address] changes no T-wave inversion MDM Narrative Medical decision making narrative: Patient does have a fever and is positive for COVID actually overall appears well. Blood work is overall reassuring. She is not hypoxic. She has no renal issues she certainly qualifies for Paxlovid. Discharge Plan Departure Patient Disposition: Home Clinical Impression: COVID-19 Instructions: DI for COVID-19 (Suspected or Confirmed ) Activity Restrictions/Additional Instructions: *You have been diagnosed with COVID-19 *What to do: At this time he may try and isolate in her room however everyone you have been with over the last few days is certainly exposed to COVID-19. Everyone should monitor their symptoms. *Continue to take medications as directed Paxlovid take as directed (hold atorvistatin while taking, then resume once done with Paxlovid) *Follow up with your primary care provider in 2-3 days or call [phone] *Return to ER if you should have oxygen less than 91%, decreased fluid intake, chest pain shortness of breath or any new, worsening or concerning symptoms Prescriptions: New Paxlovid (EUA) 150 mg x 2- 100 mg tablet See Rx Instructions PO .COMPLEX Qty: 30 0RF Rx Instructions: take TWO 150 mg tablets of nirmatrelvir with ONE 100 mg tablet of ritonavir twice daily for 5 days No Action lisinopril 20 mg tablet 20 mg PO BID Qty: 180 3RF albuterol sulfate [ProAir HFA] 90 mcg/actuation HFA aerosol inhaler 2 puff inhalation QID PRN (Reason: shortness of breath or wheezing) Qty: 18 2RF atorvastatin 20 mg tablet 20 mg PO DAILY Qty: 90 1RF amlodipine 5 mg tablet See Rx Instructions .ROUTE .COMPLEX Qty: 180 0RF Dose Instruction: TAKE 1 TABLET BY MOUTH TWICE DAILY Rx Instructions: TAKE 1 TABLET BY MOUTH TWICE DAILY metoprolol succinate 25 mg tablet extended release 24 hr 25 mg PO BID Qty: 180 3RF nitroglycerin 0.4 mg tablet, sublingual 0.4 mg sublingual Q5M PRN (Reason: chest pain) Qty: 20 4RF Rx Instructions: do not exceed 3 doses per episode CoQ10 100 mg PO DAILY multivitamin Tablet 1 tab PO DAILY Vitamin E PO DAILY aspirin [Adult Aspirin Regimen] 81 mg tablet,delayed release (DR/EC) 81 mg PO DAILY Referrals: Sven Mattson DO [Primary Care Provider] - Visit Report Forms: Patient Portal/API
[2021-12-12 13:00] VITALS: PULSE 64; O2SAT 94
[2021-12-12 13:01] VITALS: BP 145/64; PULSE 67; O2SAT 95
[2021-12-12 13:07] VITALS: TEMP 36.9
== END 2021-12-12 13:18 | disposition home or self-care (01) ==
PROVIDERS: Emergency Provider Emergency Medicine; PCP Family Medicine
DX: U07.1 COVID-19 (principal)
CPT/HCPCS: 36415; 71045; 80053; 83605; 83690; 84145; 85025; 87040; 87635; 93005; 93010; 99284; C9803

== ENCOUNTER → 2021-12-21 08:19 | Outpatient (CLI) | payer MEDICARE, SELFPAY ==
[2021-12-21 09:48] LABS: Appearance Urine UA SL CLOUDY; Bilirubin Urine UA NEGATIVE (NEGATIVE); Color Urine UA YELLOW; Glucose Urine UA NEGATIVE (Negative); Ketones Urine UA NEGATIVE (NEGATIVE); Leukocyte Esterase Urine UA 2+ (NEGATIVE); Nitrite Urine UA POSITIVE (Negative); Occult Blood Urine UA 1+ (Negative); Protein Urine UA TRACE (Negative); Specific Gravity Urine UA 1.015 (1.000-1.035); Urobilinogen Urine UA 0.2 E.U./dL (0.2)
[2021-12-21 09:53] LABS: pH Urine UA 5.5 (4.5-8.0)
[2021-12-21 09:55] LABS: Bacteria Urine Many (>30); Culture Indicated Urine Specimen Cultured; RBC Urine 1-5/HPF (0-5/HPF); Squamous Epithelial Cell Urine 1-5 /HPF (0-5/HPF); WBC Urine 10-30/HPF (0-5/HPF)
== END ==
PROVIDERS: PCP Family Medicine; Referring Provider Family Medicine; Visit Provider Family Medicine
DX: R30.0 Dysuria (principal); R39.15 Urgency of urination
CPT/HCPCS: 81001; 87077; 87086; 87186

== ENCOUNTER → 2022-03-23 09:00 | Outpatient (CLI) | payer MEDICARE, SELFPAY ==
--- NOTE | 2022-03-23 09:01 | DI.RAD.S_ITS ---
PROCEDURE: XR SHOULDER LT MIN 2V INDICATIONS: Shoulder pain, adhesive capsulitis TECHNIQUE: 3 views of the shoulder were acquired. COMPARISON: [facility], , SHOULDER MINIMUM 2 VIEW LEFT, 06/20/2015, 16:59. FINDINGS: Bones: Old healed impacted proximal humeral shaft/surgical neck fracture is seen with chronic appearing deformity. Moderate acromioclavicular joint and glenohumeral joint osteoarthritic changes are seen. No suspicious bony lesions. Visualized ribs appear intact. Soft tissues: No suspicious soft tissue calcifications. IMPRESSION: Old healed left proximal humeral shaft/surgical neck fracture and moderate left shoulder joint osteoarthritis. No acute fracture or dislocation. No gross soft tissue abnormalities. Dictated by: Dane Britton M.D. on 03/23/2022 at 12:19 Approved by: Dane Britton M.D. on 03/23/2022 at 12:23
[2022-03-23 09:47] LABS: Add Manual Diff / Slide Review NO; Basophils Absolute Auto 0 /uL (0-100); Basophils Percent Auto 0.8 % (0-2); Eosinophils Absolute Auto 100 /uL (0-450); Eosinophils Percent Auto 1.9 % (2-4); Hematocrit 42.3 % (36-46); Hemoglobin 14.6 g/dL (12.0-16.0); Lymphocytes Absolute Auto 1800 /uL (1100-4500); Lymphocytes Percent Auto 29.1 % (25-40); Mean Corpuscular HGB Conc 34.4 % (30-36); Mean Corpuscular Hemoglobin 31.4 PG (26-34); Mean Corpuscular Volume 91.4 fL (80-100); Monocytes Absolute Auto 600 /uL (0-900); Monocytes Percent Auto 9.6 % (3-14); Neutrophils Absolute Auto 3600 /uL (1500-7000); Neutrophils Percent Auto 58.6 % (50-75); Platelet Count 203 X10^3/uL (150-400); Red Blood Cell Count 4.63 X10^6/uL (4.0-5.2); Red Cell Distribution Width 14.1 % (11.6-14.8); White Blood Cell Count 6.1 X10^3/uL (4.5-11.0)
[2022-03-23 09:56] LABS: Alanine Aminotransferase 18 IU/L (<35); Albumin 4.3 g/dL (3.5-5.0); Albumin Globulin Ratio 1.3 (1.0-2.8); Alkaline Phosphatase 83 U/L (38-126); Aspartate Aminotransferase 28 IU/L (14-36); BUN Creatinine Ratio 20.4 (6-22); Bilirubin Total 0.8 mg/dL (0.2-1.3); Blood Urea Nitrogen 20 mg/dL (7-17); Calcium 9.6 mg/dL (8.4-10.2); Carbon Dioxide 26 mmol/L (22-32); Chloride 106 mmol/L (98-107); Estimated Glomerular Filt Rate 56 mL/min (>60); Globulin 3.4 g/dL (1.7-4.1); Glucose 103 mg/dL (80-110); HEMOLYSIS < 15 (0-50); Potassium 4.7 mmol/L (3.4-5.1); Sodium 139 mmol/L (137-145); Total Protein 7.7 g/dL (6.3-8.2)
[2022-03-23 17:56] LABS: Appearance Urine UA CLEAR; Bilirubin Urine UA NEGATIVE (NEGATIVE); Color Urine UA YELLOW; Glucose Urine UA TRACE g/dL (Negative); Ketones Urine UA NEGATIVE (NEGATIVE); Leukocyte Esterase Urine UA TRACE (NEGATIVE); Nitrite Urine UA NEGATIVE (Negative); Occult Blood Urine UA NEGATIVE (Negative); Protein Urine UA TRACE (Negative); Urobilinogen Urine UA 0.2 E.U./dL (0.2)
[2022-03-23 18:19] LABS: Bacteria Urine None Seen; Culture Indicated Urine Specimen Cultured; Hyaline Casts Urine 1-5/LPF; Mucus Urine 1+ (Negative); RBC Urine None Seen (0-5/HPF); Squamous Epithelial Cell Urine 1-5 /HPF (0-5/HPF); Transitional Epi Cells Urine 1-5/HPF (0-5/HPF); WBC Urine None Seen (0-5/HPF)
== END ==
PROVIDERS: PCP Family Medicine; Referring Provider Family Medicine; Visit Provider Family Medicine
DX: M75.02 Adhesive capsulitis of left shoulder (principal); M19.012 Primary osteoarthritis, left shoulder; M25.512 Pain in left shoulder; I10 Essential (primary) hypertension; J30.1 Allergic rhinitis due to pollen; Z87.81 Personal history of (healed) traumatic fracture
CPT/HCPCS: 36415; 73030; 80053; 81001; 85025; 87086

== ENCOUNTER → 2022-09-12 07:17 | Outpatient (CLI) | payer MEDICARE, SELFPAY ==
[2022-09-12 08:13] LABS: Add Manual Diff / Slide Review NO; Basophils Absolute Auto 0 /uL (0-100); Basophils Percent Auto 0.6 % (0-2); Eosinophils Absolute Auto 200 /uL (0-450); Eosinophils Percent Auto 3.2 % (2-4); Hematocrit 41.8 % (36-46); Hemoglobin 13.9 g/dL (12.0-16.0); Lymphocytes Absolute Auto 1700 /uL (1100-4500); Lymphocytes Percent Auto 30.3 % (25-40); Mean Corpuscular HGB Conc 33.2 % (30-36); Mean Corpuscular Hemoglobin 30.5 PG (26-34); Monocytes Absolute Auto 600 /uL (0-900); Monocytes Percent Auto 10.4 % (3-14); Neutrophils Absolute Auto 3000 /uL (1500-7000); Neutrophils Percent Auto 55.5 % (50-75); Platelet Count 181 X10^3/uL (150-400); Red Blood Cell Count 4.54 X10^6/uL (4.0-5.2); White Blood Cell Count 5.5 X10^3/uL (4.5-11.0)
[2022-09-12 08:17] LABS: Appearance Urine UA CLEAR; Bilirubin Urine UA NEGATIVE (NEGATIVE); Color Urine UA YELLOW; Glucose Urine UA NEGATIVE (Negative); Ketones Urine UA NEGATIVE (NEGATIVE); Leukocyte Esterase Urine UA NEGATIVE (NEGATIVE); Nitrite Urine UA NEGATIVE (Negative); Occult Blood Urine UA TRACE-INTACT (Negative); Protein Urine UA NEGATIVE (Negative); Specific Gravity Urine UA 1.025 (1.000-1.035); Urobilinogen Urine UA 0.2 E.U./dL (0.2)
[2022-09-12 08:25] LABS: pH Urine UA 5.5 (4.5-8.0)
[2022-09-12 08:26] LABS: Bacteria Urine None Seen; Culture Indicated Urine Cult Not Indicated; RBC Urine 1-5/HPF (0-5/HPF); WBC Urine None Seen (0-5/HPF)
[2022-09-12 08:45] LABS: Alanine Aminotransferase 17 IU/L (<35); Albumin 3.8 g/dL (3.5-5.0); Albumin Globulin Ratio 1.4 (1.0-2.8); Alkaline Phosphatase 84 U/L (38-126); Aspartate Aminotransferase 21 IU/L (14-36); Bilirubin Total 0.9 mg/dL (0.2-1.3); Blood Urea Nitrogen 24 mg/dL (7-17); Calcium 9.2 mg/dL (8.4-10.2); Carbon Dioxide 28 mmol/L (22-32); Chloride 106 mmol/L (98-107); Cholesterol 155 mg/dL (140-199); Estimated Glomerular Filt Rate > 60 mL/min (>60); Globulin 2.8 g/dL (1.7-4.1); Glucose 93 mg/dL (80-110); HDL Cholesterol 49 mg/dL (40-60); HEMOLYSIS < 15 (0-50); LDL Cholesterol Calculated 82 mg/dL (<100); Potassium 3.9 mmol/L (3.4-5.1); Sodium 141 mmol/L (137-145); Total Protein 6.6 g/dL (6.3-8.2); Triglycerides 118 mg/dL (35-150)
[2022-09-12 08:51] LABS: Free T4, Direct Thyroxine 1.19 ng/dL (0.78-2.19)
[2022-09-12 09:05] LABS: Thyroid Stimulating Hormone 0.955 uIU/mL (0.47-4.68)
== END ==
PROVIDERS: Family Provider Family Medicine; PCP Family Medicine; Referring Provider Family Medicine; Visit Provider Family Medicine
DX: E78.2 Mixed hyperlipidemia (principal); I10 Essential (primary) hypertension; R30.0 Dysuria; R94.4 Abnormal results of kidney function studies
CPT/HCPCS: 36415; 80053; 80061; 81001; 84439; 84443; 85025

== ENCOUNTER → 2023-03-27 10:03 | Outpatient (CLI) | payer MEDICARE, SELFPAY ==
[2023-03-27 12:10] LABS: TSH w/ Reflex to FT4 0.83 uIU/mL (0.47-4.68)
[2023-04-20 14:27] LABS: Acetylcholine Receptor Bind AB 0.03
[2023-04-20 14:28] LABS: Acetylcholine Blocking AB 15
[2023-04-20 14:29] LABS: Acetylcholine Modulating AB 8
[2023-04-20 14:31] LABS: MuSK Antibodies <1.0
== END ==
PROVIDERS: Family Provider Family Medicine; PCP Family Medicine; Referring Provider Family Medicine; Visit Provider Family Medicine
DX: H05.20 Unspecified exophthalmos (principal)
CPT/HCPCS: 36415; 83519; 84443; 86255

== ENCOUNTER → 2023-06-09 11:47 | Outpatient (CLI) | payer MEDICARE, SELFPAY ==
[2023-06-09 12:44] LABS: Influenza A - CEPHEID Flu A NEGATIVE (NEGATIVE); Influenza B - CEPHEID Flu B NEGATIVE (NEGATIVE); Respiratory Syncytial Virus Negative (Negative)
[2023-06-09 13:15] LABS: COVID-19 CEPHEID 4-PLEX PCR POSITIVE (Negative)
== END ==
PROVIDERS: Family Provider Family Medicine; PCP Family Medicine; Visit Provider Student in an Organized Health Care Education/Training Program
DX: R05.1 Acute cough (principal)
CPT/HCPCS: 0241U

== ENCOUNTER → 2023-08-06 07:38 | Outpatient (CLI) | payer MEDICARE, SELFPAY ==
[2023-08-06 08:41] LABS: Add Manual Diff / Slide Review NO; Basophils Absolute Auto 100 /uL (0-100); Basophils Percent Auto 1.2 % (0-2); Eosinophils Absolute Auto 200 /uL (0-450); Eosinophils Percent Auto 3.1 % (2-4); Hematocrit 41.6 % (36-46); Hemoglobin 14.1 g/dL (12.0-16.0); Lymphocytes Absolute Auto 1800 /uL (1100-4500); Lymphocytes Percent Auto 35.2 % (25-40); Mean Corpuscular HGB Conc 33.8 % (30-36); Mean Corpuscular Hemoglobin 30.5 PG (26-34); Mean Corpuscular Volume 90.2 fL (80-100); Monocytes Absolute Auto 500 /uL (0-900); Monocytes Percent Auto 10.9 % (3-14); Neutrophils Absolute Auto 2500 /uL (1500-7000); Neutrophils Percent Auto 49.6 % (50-75); Platelet Count 189 X10^3/uL (150-400); Red Blood Cell Count 4.61 X10^6/uL (4.0-5.2); Red Cell Distribution Width 14.3 % (11.6-14.8); White Blood Cell Count 5.1 X10^3/uL (4.5-11.0)
[2023-08-06 08:44] LABS: Alanine Aminotransferase 16 IU/L (<35); Albumin 3.9 g/dL (3.5-5.0); Albumin Globulin Ratio 1.4 (1.0-2.8); Alkaline Phosphatase 90 U/L (38-126); Aspartate Aminotransferase 22 IU/L (14-36); BUN Creatinine Ratio 26.5 (6-22); Bilirubin Total 0.8 mg/dL (0.2-1.3); Blood Urea Nitrogen 26 mg/dL (7-17); Calcium 9.2 mg/dL (8.4-10.2); Carbon Dioxide 28 mmol/L (22-32); Chloride 106 mmol/L (98-107); Cholesterol 140 mg/dL (140-199); Estimated Glomerular Filt Rate 56 mL/min (>60); Globulin 2.7 g/dL (1.7-4.1); Glucose 96 mg/dL (80-110); HDL Cholesterol 49 mg/dL (40-60); HEMOLYSIS < 15 (0-50); LDL Cholesterol Calculated 62 mg/dL (<100); Potassium 4.1 mmol/L (3.4-5.1); Sodium 141 mmol/L (137-145); Total Protein 6.6 g/dL (6.3-8.2); Triglycerides 147 mg/dL (35-150)
[2023-08-06 09:17] LABS: TSH w/ Reflex to FT4 1.23 uIU/mL (0.47-4.68)
[2023-08-06 21:30] LABS: Appearance Urine UA CLEAR; Bilirubin Urine UA NEGATIVE (NEGATIVE); Color Urine UA YELLOW; Glucose Urine UA NEGATIVE (Negative); Ketones Urine UA NEGATIVE (NEGATIVE); Leukocyte Esterase Urine UA NEGATIVE (NEGATIVE); Nitrite Urine UA NEGATIVE (Negative); Occult Blood Urine UA NEGATIVE (Negative); Protein Urine UA NEGATIVE (Negative); Specific Gravity Urine UA 1.015 (1.000-1.035); Urobilinogen Urine UA 0.2 E.U./dL (0.2)
[2023-08-06 21:32] LABS: pH Urine UA 5.5 (4.5-8.0)
[2023-08-06 21:50] LABS: Bacteria Urine Occasional (0-1); Culture Indicated Urine Cult Not Indicated; RBC Urine 0-1/HPF (0-5/HPF); Squamous Epithelial Cell Urine 5-10 /HPF (0-5/HPF); Urine Volume 10mL (spun); WBC Urine 0-1/HPF (0-5/HPF)
== END ==
PROVIDERS: Family Provider Family Medicine; PCP Family Medicine; Referring Provider Family Medicine; Visit Provider Family Medicine
DX: E78.5 Hyperlipidemia, unspecified (principal); I10 Essential (primary) hypertension
CPT/HCPCS: 36415; 80053; 80061; 81001; 84443; 85025

== ENCOUNTER → 2023-08-13 15:50 | Outpatient (CLI) | payer MEDICARE, SELFPAY | PROVIDERS: Family Provider Family Medicine; PCP Family Medicine; Visit Provider Family Medicine | DX: N39.0 Urinary tract infection, site not specified (principal) | CPT/HCPCS: 87086 ==

== ENCOUNTER → 2023-08-13 16:00 | Outpatient (CLI) | payer MEDICARE, SELFPAY ==
--- NOTE | 2023-08-13 16:01 | DI.RAD.S_ITS ---
PROCEDURE: XR SHOULDER LT MIN 2V INDICATIONS: L shoulder pain TECHNIQUE: 3 views of the shoulder were acquired. COMPARISON: [facility], SHOULDER MINIMUM 2 VIEW LEFT, 05/21/2009, 12:01. [facility], SHOULDER MINIMUM 2 VIEW LEFT, 06/20/2015, 16:59. [facility], , XR SHOULDER LT MIN 2V, 03/23/2022, 9:06. FINDINGS: Bones: No acute fracture. Deformity of the left humeral head. No dislocations. Mild to moderate degenerative changes at the left shoulder. No suspicious bony lesions. Visualized ribs appear intact. Soft tissues: No suspicious soft tissue calcifications. IMPRESSION: Similar deformity of the left humeral head which could be due to remote fracture. Moderate degenerative changes. Dictated by: Masood Garner M.D. on 08/13/2023 at 17:58 Approved by: Masood Garner M.D. on 08/13/2023 at 18:00
== END ==
PROVIDERS: Family Provider Family Medicine; PCP Family Medicine; Referring Provider Family Medicine; Visit Provider Family Medicine
DX: M21.822 Other specified acquired deformities of left upper arm (principal); M25.512 Pain in left shoulder; N39.0 Urinary tract infection, site not specified
CPT/HCPCS: 73030; 87086

== ENCOUNTER → 2023-09-19 08:13 | Outpatient (CLI) | payer MEDICARE, SELFPAY ==
--- NOTE | 2023-09-19 08:17 | DI.RAD.S_ITS ---
PROCEDURE: XR HIP W PEL IF DONE LT 2V INDICATIONS: left hip pain, see 09/17/23 visit note TECHNIQUE: AP pelvis with lateral view(s) of the left hip(s). COMPARISON: None. FINDINGS: Bones: No fractures or dislocations. There is moderate, fairly symmetric femoroacetabular joint space loss including medial joint space loss. There is mild subcortical cystic changes and spurring involving the left femoral head. Additionally, there is osteitis pubis including moderate sclerosis and erosive changes at the symphysis. Incidental note of severe disc and endplate degeneration in the visible lower lumbar spine. Pelvic ring appears intact. No suspicious bony lesions. Soft tissues: The visualized bowel gas pattern is normal. No suspicious soft tissue calcifications. 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 Osteitis pubis. Dictated by: Dara Monroy M.D. on 09/19/2023 at 10:48 Approved by: Dara Monroy M.D. on 09/19/2023 at 10:49
[2023-09-19 10:32] LABS: Appearance Urine UA CLEAR; Bilirubin Urine UA NEGATIVE (NEGATIVE); Color Urine UA YELLOW; Glucose Urine UA NEGATIVE (Negative); Ketones Urine UA NEGATIVE (NEGATIVE); Leukocyte Esterase Urine UA NEGATIVE (NEGATIVE); Nitrite Urine UA NEGATIVE (Negative); Occult Blood Urine UA TRACE-INTACT (Negative); Protein Urine UA NEGATIVE (Negative); Specific Gravity Urine UA 1.015 (1.000-1.035); Urobilinogen Urine UA 0.2 E.U./dL (0.2)
[2023-09-19 10:36] LABS: pH Urine UA 5.5 (4.5-8.0)
[2023-09-19 10:46] LABS: RBC Urine 1-5/HPF (0-5/HPF); Urine Volume 10mL (spun)
[2023-09-19 10:47] LABS: Bacteria Urine None Seen; Culture Indicated Urine Cult Not Indicated; Squamous Epithelial Cell Urine 1-5 /HPF (0-5/HPF); WBC Urine None Seen (0-5/HPF)
== END ==
PROVIDERS: Family Provider Family Medicine; PCP Family Medicine; Referring Provider Family Medicine; Visit Provider Family Medicine
DX: M70.62 Trochanteric bursitis, left hip (principal); N39.0 Urinary tract infection, site not specified; M86.9 Osteomyelitis, unspecified
CPT/HCPCS: 73502; 81001

== ENCOUNTER → 2023-12-14 19:09 | Outpatient (CLI) | payer MEDICARE, SELFPAY | PROVIDERS: Family Provider Family Medicine; PCP Student in an Organized Health Care Education/Training Program; Visit Provider Nurse Practitioner Family | DX: N89.8 Other specified noninflammatory disorders of vagina (principal); R30.0 Dysuria | CPT/HCPCS: 87086; 87210 ==

== ENCOUNTER → 2024-04-16 09:48 | Outpatient (CLI) | payer MEDICARE, SELFPAY ==
[2024-04-16 11:08] LABS: Add Manual Diff / Slide Review NO; Basophils Absolute Auto 100 /uL (0-100); Eosinophils Absolute Auto 100 /uL (0-450); Eosinophils Percent Auto 2.1 % (2-4); Hematocrit 43.5 % (36-46); Hemoglobin 14.8 g/dL (12.0-16.0); Lymphocytes Absolute Auto 1400 /uL (1100-4500); Lymphocytes Percent Auto 23.3 % (25-40); Mean Corpuscular Volume 91.1 fL (80-100); Monocytes Absolute Auto 700 /uL (0-900); Monocytes Percent Auto 11.9 % (3-14); Neutrophils Absolute Auto 3800 /uL (1500-7000); Neutrophils Percent Auto 61.7 % (50-75); Platelet Count 183 X10^3/uL (150-400); Red Blood Cell Count 4.77 X10^6/uL (4.0-5.2); Red Cell Distribution Width 14.1 % (11.6-14.8); White Blood Cell Count 6.1 X10^3/uL (4.5-11.0)
[2024-04-16 11:19] LABS: Alanine Aminotransferase 15 IU/L (<35); Albumin 4.1 g/dL (3.5-5.0); Albumin Globulin Ratio 1.6 (1.0-2.8); Alkaline Phosphatase 82 U/L (38-126); Aspartate Aminotransferase 22 IU/L (14-36); Bilirubin Total 0.9 mg/dL (0.2-1.3); Blood Urea Nitrogen 31 mg/dL (7-17); Calcium 9.4 mg/dL (8.4-10.2); Carbon Dioxide 29 mmol/L (22-32); Chloride 100 mmol/L (98-107); Estimated Glomerular Filt Rate 40 mL/min (>60); Globulin 2.5 g/dL (1.7-4.1); Glucose 95 mg/dL (80-110); HEMOLYSIS < 15 (0-50); Sodium 136 mmol/L (137-145); Total Protein 6.6 g/dL (6.3-8.2)
[2024-04-16 11:55] LABS: Creatinine Urine Random 141.03 mg/dL
[2024-04-16 12:01] LABS: Microalbumin Urine Random 3.1 mg/dL (0-1.6)
== END ==
PROVIDERS: Family Provider Family Medicine; PCP Student in an Organized Health Care Education/Training Program; Referring Provider Student in an Organized Health Care Education/Training Program; Visit Provider Student in an Organized Health Care Education/Training Program
DX: R42 Dizziness and giddiness (principal); I1A.0 Resistant hypertension; Z79.899 Other long term (current) drug therapy; J01.10 Acute frontal sinusitis, unspecified
CPT/HCPCS: 36415; 80053; 82043; 82570; 85025

== ENCOUNTER → 2024-04-29 08:57 | Outpatient (CLI) | payer MEDICARE, SELFPAY ==
[2024-04-29 10:50] LABS: BUN Creatinine Ratio 18.3 (6-22); Blood Urea Nitrogen 20 mg/dL (7-17); Calcium 9.1 mg/dL (8.4-10.2); Carbon Dioxide 27 mmol/L (22-32); Chloride 108 mmol/L (98-107); Estimated Glomerular Filt Rate 49 mL/min (>60); Glucose 97 mg/dL (80-110); HEMOLYSIS < 15 (0-50); Potassium 4.2 mmol/L (3.4-5.1); Sodium 139 mmol/L (137-145)
== END ==
PROVIDERS: Family Provider Family Medicine; PCP Student in an Organized Health Care Education/Training Program; Referring Provider Student in an Organized Health Care Education/Training Program; Visit Provider Student in an Organized Health Care Education/Training Program
DX: N17.9 Acute kidney failure, unspecified (principal); R42 Dizziness and giddiness; I1A.0 Resistant hypertension
CPT/HCPCS: 36415; 80048

== ENCOUNTER 2024-07-01 11:14 | Observation (INO) | payer MEDICARE, SELFPAY ==
[2024-07-01] VITALS (23 sets, daily range): BP systolic 136–238; BP diastolic 63–127; PULSE 47–93; RESP 13–28; TEMP 36.3–36.4; O2SAT 95–100; BMI 27.2
--- NOTE | 2024-07-01 12:21 | DI.CT.S_ITS ---
PROCEDURE: CT HEAD/BRAIN WO CON INDICATIONS: Ataxia TECHNIQUE: Noncontrast 4.5 mm thick angled axial sections acquired from the foramen magnum to the vertex, with coronal and sagittal reformats. For radiation dose reduction, the following was used: automated exposure control, adjustment of mA and/or kV according to patient size. COMPARISON: [facility], CT, HEAD WITHOUT CONTRAST, 06/20/2015, 16:45. FINDINGS: Image quality: Diagnostic. CSF spaces: Basal cisterns are patent. No extra-axial fluid collections. The ventricles are symmetric in size and shape. Brain: No intracranial bleeds or masses. There is cerebral volume loss for age, with resultant ventricular and sulcal prominence. There are periventricular and deep white matter chronic small vessel ischemic changes. There is intracranial internal carotid artery atherosclerosis. Skull and face: Calvarium and visualized facial bones appear intact, without suspicious lesions. Sinuses: Visualized sinuses and mastoids are clear. IMPRESSION: No acute intracranial pathology. Dictated by: Palmer Watson M.D. on 07/01/2024 at 13:01 Approved by: Palmer Watson M.D. on 07/01/2024 at 13:03
--- NOTE | 2024-07-01 12:25 | ED.GENADULT ---
HPI - General Adult General Chief complaint: Hypertension Stated complaint: high blood pressure Time Seen by Provider: 07/01/24 11:46 Mode of arrival: Ambulatory History of Present Illness HPI narrative: Patient here with daughter. Patient denies any chest pain shortness of breath numbness tingling or weakness no headache. She has had changes with blood pressure medication with Dr. Ascencio, cardiology with [facility]. She was started on nebivolol last Sunday low dose. Heart rate 53. Blood pressure systolic 189. She has had ongoing for past 1 year changes in her walking where she shuffles her feet. Takes shorter strides. This is not new. Related Data Home Medications Medication Instructions Recorded Confirmed CoQ10 100 mg PO DAILY 05/19/20 07/01/24 Vitamin E PO DAILY 05/19/20 05/29/24 aspirin 81 mg tablet,delayed 81 mg PO DAILY 05/19/20 07/01/24 release (Adult Aspirin Regimen) multivitamin 1 tab PO DAILY 05/19/20 07/01/24 Previous Rx's Medication Instructions Recorded fluconazole 150 mg tablet 150 mg PO Q3D 2 doses #2 tabs 02/13/24 albuterol sulfate 90 mcg/actuation 2 puff inhalation QID PRN 03/13/24 aerosol inhaler shortness of breath or wheezing #18 grams atorvastatin 20 mg tablet 20 mg PO DAILY #90 tabs 03/18/24 Allergies Allergy/AdvReac Type Severity Reaction Status Date / Time Sulfa (Sulfonamide Allergy Mild Verified 07/01/24 11:20 Antibiotics) [SULFA (SULFONAMIDE ANTIBIOTICS)] Review of Systems Review of Systems Narrative: GENERAL: Negative chills, fatigue, malaise, fever, sweats. HEENT: Negative sinus pain, ear pain, sore throat RESPIRATORY: Negative dyspnea, cough CARDIOVASCULAR: Negative chest pain, palpitations GASTROINTESTINAL: Negative nausea, vomiting, abdominal pain : Negative dysuria, frequency, hematuria MUSCULOSKELETAL: Negative muscle or bony pain SKIN: Negative rash, skin lesions NEUROLOGIC: Negative weakness, numbness ROS Unobtainable: All systems reviewed & are unremarkable except as noted in HPI and below Patient History Medical History (Updated 07/01/24 @ 16:24 by Christopher Youssef MD) Unspecified constipation (05/25/03) Skin sensation disturbance (05/17/04) Seborrheic keratosis, inflamed (12/01/02) Pain in limb (05/17/04) Acute serous otitis media, recurrent, unspecified ear (12/01/02) Headache (06/24/04) Elevated BP without diagnosis of hypertension (05/25/03) Dysuria Dizziness (12/01/02) Actinic keratosis (05/17/04) Leg edema Greater trochanteric bursitis of left hip Microscopic hematuria Urinary incontinence Vasovagal near syncope Ocular proptosis Medicare annual wellness visit, subsequent Encounter for well adult exam with abnormal findings Adhesive capsulitis Seasonal allergic rhinitis Squamous cell carcinoma (~2009) Chronic cough (~2018) Allergies (~1989) Fractures Chronic back pain Mumps (~1959) Measles (~193) Chicken pox (~1947) Vertigo Recurrent sinusitis History of recurrent ear infection Hearing loss Cataracts, bilateral Endometriosis (~1968) History of urinary incontinence Frequent UTI (~2015) Preventative health care History of squamous cell carcinoma Reactive airway disease Hyperlipidemia Hypertension (~1994) Surgical History Anesthesia History of surgical removal of squamous cell carcinoma of skin of [place] region (~2009) History of bladder suspension procedure (~1983) History of removal of cyst (~1977) History of stress test (~2018) Family History Father Cancer Mother Stroke Brother History of heart disease Brother History of heart disease Knee problem Hypertension Grandmother Stroke Grandmother Stroke Social History household members: other Smoking Status: Never smoker alcohol intake: never Smoking Status: Never smoker Exam Narrative Exam Narrative: GENERAL: in no distress, not toxic not dyspneic HEAD: Normocephalic. EYES: Pupils equal round ENT: Mucous membranes moist. NECK: Trachea midline. CARDIOVASCULAR: Regular rate and rhythm RESPIRATORY: Clear to auscultation. Breath sounds equal bilaterally. No wheezes, rales, or rhonchi. GASTROINTESTINAL: Abdomen soft, non-tender EXTREMITIES: No gross deformities. BACK: No flank tenderness. NEURO: AOx4. Clear speech no facial droop steady self gait in the room but does take short strides, slight shuffling. But no ataxia. Steady Romberg. Negative pronator drift. Fast exam is negative. No facial droop. Light touch intact bilateral face hands and legs SKIN: Warm and dry PSYCH: Not anxious, is cooperative Initial Vital Signs Initial Vital Signs: Vital Signs Temperature 97.4 F L 07/01/24 11:20 Pulse Rate 72 07/01/24 11:20 Respiratory Rate 14 07/01/24 11:20 Blood Pressure 220/78 H 07/01/24 11:20 Pulse Oximetry 96 07/01/24 11:20 Oxygen Delivery Method Room Air 07/01/24 11:20 Course Orders Ordered: Albuterol (Albuterol 2.5 Mg/3 Ml Neb (Adult)) 2.5 mg INH QID PRN PRN Reason: shortness of breath or wheezing Aspirin (Aspirin Ec 81 Mg Tablet) 81 mg PO DAILY ANGEL Atorvastatin Calcium (Atorvastatin 20 Mg Tablet) 20 mg PO DAILY ANGEL Nicardipine HCl 25 mg/ Sodium (Chloride) 250 mls @ 50 mls/hr IV TITRATE ANGEL; Protocol Last Admin: 07/02/24 06:51 Dose: 5 mg/hr, 50 mls/hr Documented By: Titration: 07/02/24 06:48 Dose: Infused Documented By: Admin: 07/02/24 01:48 Dose: 5 mg/hr, 50 mls/hr Documented By: Titration: 07/02/24 01:40 Dose: Infused Documented By: Admin: 07/01/24 20:40 Dose: 5 mg/hr, 50 mls/hr Documented By: Titration: 07/01/24 20:40 Dose: Infused Documented By: Titration: 07/01/24 17:13 Dose: 5 mg/hr, 50 mls/hr Documented By: Admin: 07/01/24 15:53 Dose: 5 mg/hr, 50 mls/hr Documented By: RASHARD Losartan Potassium (Losartan 50 Mg Tablet) 100 mg PO DAILY ANGEL Last Admin: 07/01/24 17:21 Dose: 100 mg Documented By: WILLIAM Metoprolol Succinate (Metoprolol Er 25 Mg Tablet) 25 mg PO BID ANGEL Last Admin: 07/01/24 20:05 Dose: 25 mg Documented By: Multivitamins (Multivitamin 1 Tablet) 1 tab PO DAILY ANGEL Naloxone HCl (Naloxone 0.4 Mg/Ml Vial) 0.2 mg IV Q2MIN PRN PRN Reason: Opiate Reversal Discontinued Medications Amlodipine Besylate (Amlodipine 5 Mg Tablet) 5 mg PO NOW ONE Stop: 07/01/24 12:33 Last Admin: 07/01/24 12:36 Dose: 5 mg Documented By: RASHARD Amlodipine Besylate (Amlodipine 5 Mg Tablet) 5 mg PO NOW ONE Stop: 07/01/24 14:43 Last Admin: 07/01/24 14:54 Dose: 5 mg Documented By: ADAM Vital Signs Vital signs: Vital Signs - 8 hr 07/01/24 11:20 07/01/24 11:21 07/01/24 11:30 Temperature 97.4 F L Pulse Rate 72 61 47 L Respiratory Rate 14 19 Blood Pressure 220/78 H Pulse Oximetry 96 98 98 Oxygen Delivery Method Room Air 07/01/24 12:00 07/01/24 12:00 07/01/24 12:35 Temperature Pulse Rate 48 L 60 Respiratory Rate 19 28 H Blood Pressure 184/88 H Pulse Oximetry 97 97 Oxygen Delivery Method 07/01/24 12:36 07/01/24 12:36 07/01/24 12:45 Temperature Pulse Rate 59 L 50 L Respiratory Rate 18 18 Blood Pressure 237/127 H Pulse Oximetry 97 99 Oxygen Delivery Method 07/01/24 13:00 07/01/24 13:09 07/01/24 13:10 Temperature Pulse Rate 50 L 93 H 62 Respiratory Rate 23 24 27 H Blood Pressure Pulse Oximetry 98 100 98 Oxygen Delivery Method 07/01/24 13:19 07/01/24 14:41 07/01/24 15:26 Temperature Pulse Rate 60 Respiratory Rate 18 Blood Pressure 236/78 H 195/65 H 238/78 H Pulse Oximetry 98 Oxygen Delivery Method Room Air Medical Decision Making Lab Data 07/01/24 12:42 07/02/24 04:20 Labs: Lab Results 07/01/24 Range/Units 12:42 WBC 6.8 (4.5-11.0) X10^3/uL RBC 4.78 (4.0-5.2) X10^6/uL Hgb 14.4 (12.0-16.0) g/dL Hct 43.7 (36-46) % MCV 91.6 (80-100) fL MCH 30.1 (26-34) PG MCHC 32.9 (30-36) % RDW 14.3 (11.6-14.8) % Plt Count 194 (150-400) X10^3/uL Neut % (Auto) 57.6 (50-75) % Lymph % (Auto) 29.4 (25-40) % [place] % (Auto) 10.2 (3-14) % Eos % (Auto) 2.0 (2-4) % Baso % (Auto) 0.8 (0-2) % Neut # (Auto) 3900 (2126-2260) /uL Lymph # (Auto) 2000 (5245-0518) /uL [place] # (Auto) 700 (0-900) /uL Eos # (Auto) 100 (0-450) /uL Baso # (Auto) 100 (0-100) /uL Sodium 142 (137-145) mmol/L Potassium 4.1 (3.4-5.1) mmol/L Chloride 107 (98-107) mmol/L Carbon Dioxide 27 (22-32) mmol/L BUN 23 H (7-17) mg/dL Creatinine 1.04 (0.52-1.04) mg/dL Estimated GFR 52 L (>60) mL/min BUN/Creatinine Ratio 22.1 H (6-22) Glucose 96 (80-110) mg/dL Calcium 9.4 (8.4-10.2) mg/dL Total Bilirubin 0.6 (0.2-1.3) mg/dL AST 26 (14-36) IU/L ALT 16 (<35) IU/L Alkaline Phosphatase 89 (38-126) U/L Total Protein 7.2 (6.3-8.2) g/dL Albumin 4.3 (3.5-5.0) g/dL Globulin 2.9 (1.7-4.1) g/dL Albumin/Globulin Ratio 1.5 (1.0-2.8) MDM Narrative Medical decision making narrative: Patient here with daughter. Patient denies any chest pain shortness of breath numbness tingling or weakness no headache. She has had changes with blood pressure medication with Dr. Ascencio, cardiology with [facility]. She was started on nebivolol last Sunday low dose. Heart rate 53. Blood pressure systolic 189. She has had ongoing for past 1 year changes in her walking where she shuffles her feet. Takes shorter strides. This is not new. After history and exam CBC CMP CT head, contact Dr. Ascencio for medication changes, patient denies any chest pain or shortness of breath. No EKG or troponin indicated at this time. [facility] Medical records reviewed: Office visit cardiology June 17, 2024. Differential considered: Includes but not limited to hypertensive urgency, normal-pressure hydrocephalus Lab Test results independently reviewed as above. Pertinent findings: EKG at 4:18 p.m.. Atrial fibrillation rate 92 Imaging studies independently reviewed: Consultations: 12:32 p.m.. Spoke with patient's local combination truck driver Dr. Ascencio, he would like to get patient 5 mg amlodipine now. Call him back into hours if no improvement, if it does improve then bright prescription 5 mg amlodipine daily, 4 month supply, then he will see patient in the office in October 2:43 p.m.. Blood pressure 195/65. Spoke with Dr. Ascencio, he recommends another 5 mg of amlodipine now. 3:[address] Ascencio, recommends admitting patient for nicardipine drip. Blood pressure has not improved. 3:[address] Singh, who will admit patient Updated Dr. Singh EKG, new onset AFib. Patient went into AFib while we were trying to set up for nicardipine drip. This is new 4:[address] Singh INR at bedside and patient has gone back into sinus rhythm. Treatments: Amlodipine/nicardipine Re-evaluations: 3:45 p.m.. Patient understands she will need admission for blood pressure control. 4:00 p.m.. While getting ready to give nicardipine patient went into AFib. This is new. Rate is controlled Discussion: Appropriate for admission patient will need blood pressure control nicardipine drip ICU admission requirement, cardiology services and hospitalist has been contacted. Diagnosis: Hypertensive urgency Critical Care Time Critical Care Time Attestation: Critical Care Time 35 minutes: Critical care time is separate from other billable procedures. This critical care time includes consultation with family and other consulting doctors, review of records, and interpretation of data from labs, imaging, etc. Discharge Plan Departure Patient Disposition: Admitted As Inpatient Clinical Impression: Hypertensive urgency, Atrial fibrillation, new onset Admit Date/Time: 07/01/24 15:40 Admit Provider: Josy Singh
[2024-07-01] MEDS: AMLODIPINE 5 MG TABLET PO ×2 (12:36→14:54)
[2024-07-01 12:53] LABS: Add Manual Diff / Slide Review NO; Basophils Absolute Auto 100 /uL (0-100); Basophils Percent Auto 0.8 % (0-2); Eosinophils Absolute Auto 100 /uL (0-450); Hematocrit 43.7 % (36-46); Hemoglobin 14.4 g/dL (12.0-16.0); Lymphocytes Absolute Auto 2000 /uL (1100-4500); Lymphocytes Percent Auto 29.4 % (25-40); Mean Corpuscular HGB Conc 32.9 % (30-36); Mean Corpuscular Hemoglobin 30.1 PG (26-34); Mean Corpuscular Volume 91.6 fL (80-100); Monocytes Absolute Auto 700 /uL (0-900); Monocytes Percent Auto 10.2 % (3-14); Neutrophils Absolute Auto 3900 /uL (1500-7000); Neutrophils Percent Auto 57.6 % (50-75); Platelet Count 194 X10^3/uL (150-400); Red Blood Cell Count 4.78 X10^6/uL (4.0-5.2); Red Cell Distribution Width 14.3 % (11.6-14.8); White Blood Cell Count 6.8 X10^3/uL (4.5-11.0)
[2024-07-01 13:17] LABS: Alanine Aminotransferase 16 IU/L (<35); Albumin 4.3 g/dL (3.5-5.0); Albumin Globulin Ratio 1.5 (1.0-2.8); Alkaline Phosphatase 89 U/L (38-126); Aspartate Aminotransferase 26 IU/L (14-36); BUN Creatinine Ratio 22.1 (6-22); Bilirubin Total 0.6 mg/dL (0.2-1.3); Blood Urea Nitrogen 23 mg/dL (7-17); Calcium 9.4 mg/dL (8.4-10.2); Carbon Dioxide 27 mmol/L (22-32); Chloride 107 mmol/L (98-107); Estimated Glomerular Filt Rate 52 mL/min (>60); Globulin 2.9 g/dL (1.7-4.1); Glucose 96 mg/dL (80-110); HEMOLYSIS < 15 (0-50); Potassium 4.1 mmol/L (3.4-5.1); Sodium 142 mmol/L (137-145); Total Protein 7.2 g/dL (6.3-8.2)
[2024-07-01] MEDS: NICARDIPINE 25 MG in SODIUM CHLORIDE 0.9% 240 ML 50 MG IV ×2 (15:53→20:40)
--- NOTE | 2024-07-01 15:59 | P.HP_ITS ---
History of Present Illness History of Present Illness Date Patient Seen: 07/01/24 Chief complaint: high blood pressure Narrative: This is an 88-year-old female with hypertension, hearing loss, hyperlipidemia, reactive airway disease who presents with uncontrolled hypertension. She has no headache, chest pain or shortness of breath. Her 2 daughters explain that she was at physical therapy this morning starting on vestibular treatments for chronic vertigo when the session was stopped due to the high blood pressure. She had an initial blood pressure of 238/78 in the emergency department. Amlodipine was given at the direction of cardiology but had no significant effect so she was started on a nicardipine IV drip. She has been experiencing hypertension, usually controlled since at least 2000 but at some unclear point in the recent past it became much harder to control so she has been following up with Dr. Ascencio. The most recent changes were to stop the amlodipine/benazepril and metoprolol and to start her on losartan and nebivolol. [facility] Medical History (Updated 07/01/24 @ 16:24 by Christopher Youssef MD) Unspecified constipation (05/25/03) Skin sensation disturbance (05/17/04) Seborrheic keratosis, inflamed (12/01/02) Pain in limb (05/17/04) Acute serous otitis media, recurrent, unspecified ear (12/01/02) Headache (06/24/04) Elevated BP without diagnosis of hypertension (05/25/03) Dysuria Dizziness (12/01/02) Actinic keratosis (05/17/04) Leg edema Greater trochanteric bursitis of left hip Microscopic hematuria Urinary incontinence Vasovagal near syncope Ocular proptosis Medicare annual wellness visit, subsequent Encounter for well adult exam with abnormal findings Adhesive capsulitis Seasonal allergic rhinitis Squamous cell carcinoma (~2009) Chronic cough (~2018) Allergies (~1989) Fractures Chronic back pain Mumps (~1959) Measles (~193) Chicken pox (~1948) Vertigo Recurrent sinusitis History of recurrent ear infection Hearing loss Cataracts, bilateral Endometriosis (~1968) History of urinary incontinence Frequent UTI (~2015) Preventative health care History of squamous cell carcinoma Reactive airway disease Hyperlipidemia Hypertension (~1994) Surgical History Anesthesia History of surgical removal of squamous cell carcinoma of skin of [place]ahao[place] region (~2009) History of bladder suspension procedure (~1983) History of removal of cyst (~1977) History of stress test (~2018) Family History Father Cancer Mother Stroke Brother History of heart disease Brother History of heart disease Knee problem Hypertension Grandmother Stroke Grandmother Stroke Social History household members: other Smoking Status: Never smoker alcohol intake: never Meds Home Medications and Allergies Home Medications Medication Instructions Recorded Confirmed Type CoQ10 100 mg PO DAILY 05/19/20 07/01/24 History Vitamin E PO DAILY 05/19/20 05/29/24 History aspirin 81 mg tablet,delayed 81 mg PO DAILY 05/19/20 07/01/24 History release (Adult Aspirin Regimen) multivitamin 1 tab PO DAILY 05/19/20 07/01/24 History fluconazole 150 mg tablet 150 mg PO Q3D 2 doses #2 tabs 02/13/24 05/29/24 Rx albuterol sulfate 90 mcg/actuation 2 puff inhalation QID PRN 03/13/24 07/01/24 Rx aerosol inhaler shortness of breath or wheezing #18 grams atorvastatin 20 mg tablet 20 mg PO DAILY #90 tabs 03/18/24 07/01/24 Rx Allergies Allergy/AdvReac Type Severity Reaction Status Date / Time Sulfa (Sulfonamide Allergy Mild Verified 07/01/24 11:20 Antibiotics) [SULFA (SULFONAMIDE ANTIBIOTICS)] Review of Systems Review of Systems Narrative: Positive for high blood pressure and vertigo/lightheadedness Negative for fevers, chills, sweats, chest pain, shortness breast, nausea, vomiting, abdominal pain, bleeding, rashes, dysuria, joint pain, headaches. Exam Vital Signs (past 8 hours): - 07/01/24 11:20 07/01/24 11:21 07/01/24 11:30 Temperature 97.4 F L Pulse Rate 72 61 47 L Respiratory Rate 14 19 Blood Pressure 220/78 H Pulse Oximetry 96 98 98 Oxygen Delivery Method Room Air 07/01/24 12:00 07/01/24 12:00 07/01/24 12:35 Temperature Pulse Rate 48 L 60 Respiratory Rate 19 28 H Blood Pressure 184/88 H Pulse Oximetry 97 97 Oxygen Delivery Method 07/01/24 12:36 07/01/24 12:36 07/01/24 12:45 Temperature Pulse Rate 59 L 50 L Respiratory Rate 18 18 Blood Pressure 237/127 H Pulse Oximetry 97 99 Oxygen Delivery Method 07/01/24 13:00 07/01/24 13:09 07/01/24 13:10 Temperature Pulse Rate 50 L 93 H 62 Respiratory Rate 23 24 27 H Blood Pressure Pulse Oximetry 98 100 98 Oxygen Delivery Method 07/01/24 13:19 07/01/24 14:41 07/01/24 15:26 Temperature Pulse Rate 60 Respiratory Rate 18 Blood Pressure 236/78 H 195/65 H 238/78 H Pulse Oximetry 98 Oxygen Delivery Method Room Air Oxygen Delivery Method Room Air Narrative Exam Narrative: She is awake, alert x3 and in no apparent distress She is an above average historian. Pupils are equally round reactive to light and accommodation Sclerae are pink and nonicteric Extraocular muscles are intact No lymph nodes are felt head, neck, supraclavicular area Throat looks normal JVD is less than 6 cm No carotid bruits are heard There is no thyromegaly Heart is regular rate rhythm without murmur Lungs are clear to auscultation bilaterally Abdomen is soft, bowel sounds positive, nontender, no organomegaly Extremities have no ankle edema Skin has no rash or jaundice. Neurological exam: Motor function is 5/5 throughout There is no tremor Cranial nerves 2-12 test intact There is no dysmetria Deep tendon reflexes are normal Objective Imaging CT scan - head: Radiologist's impression: PROCEDURE: CT HEAD/BRAIN WO CON INDICATIONS: Ataxia TECHNIQUE: Noncontrast 4.5 mm thick angled axial sections acquired from the foramen magnum to the vertex, with coronal and sagittal reformats. For radiation dose reduction, the following was used: automated exposure control, adjustment of mA and/or kV according to patient size. COMPARISON: [facility], CT, HEAD WITHOUT CONTRAST, 06/20/2015, 16:45. FINDINGS: Image quality: Diagnostic. CSF spaces: Basal cisterns are patent. No extra-axial fluid collections. The ventricles are symmetric in size and shape. Brain: No intracranial bleeds or masses. There is cerebral volume loss for age, with resultant ventricular and sulcal prominence. There are periventricular and deep white matter chronic small vessel ischemic changes. There is intracranial internal carotid artery atherosclerosis. Skull and face: Calvarium and visualized facial bones appear intact, without suspicious lesions. Sinuses: Visualized sinuses and mastoids are clear. IMPRESSION: No acute intracranial pathology. Dictated by: Palmer Watson M.D. on 07/01/2024 at 13:01 Labs 07/01/24 12:42 07/01/24 12:42 Labs: Laboratory Results - last 24 hr 07/01/24 12:42 WBC 6.8 RBC 4.78 Hgb 14.4 Hct 43.7 MCV 91.6 MCH 30.1 MCHC 32.9 RDW 14.3 Plt Count 194 Neut % (Auto) 57.6 Lymph % (Auto) 29.4 [place] % (Auto) 10.2 Eos % (Auto) 2.0 Baso % (Auto) 0.8 Neut # (Auto) 3900 Lymph # (Auto) 2000 [place] # (Auto) 700 Eos # (Auto) 100 Baso # (Auto) 100 Sodium 142 Potassium 4.1 Chloride 107 Carbon Dioxide 27 BUN 23 H Creatinine 1.04 Estimated GFR 52 L BUN/Creatinine Ratio 22.1 H Glucose 96 Calcium 9.4 Total Bilirubin 0.6 AST 26 ALT 16 Alkaline Phosphatase 89 Total Protein 7.2 Albumin 4.3 Globulin 2.9 Albumin/Globulin Ratio 1.5 Assessment & Plan Assessment & Plan narrative: This is an 88-year-old female with hypertension, hearing loss, hyperlipidemia, reactive airway disease who presents with uncontrolled hypertension. She has no headache, chest pain or shortness of breath. Her 2 daughters explain that she was at physical therapy this morning starting on vestibular treatments for chronic vertigo when the session was stopped due to the high blood pressure. She had an initial blood pressure of 238/78 in the emergency department. Hypertensive emergency, present on admission -presenting blood pressure of 238/78. No chest pain, shortness breast or palpitations. No headaches. -no significant response to initial oral dose of amlodipine in the ED. -phone conversation with Dr. Ascencio in the ED with recommendation for nicardipine drip -the patient experienced a brief episode of EKG documented asymptomatic atrial fibrillation with heart rate in the 90s that was no longer present when she returned to her room from urinating. She has no history of atrial fibrillation. -check echocardiogram and TSH -check troponin -continue losartan. Resume metoprolol. -continue aspirin -likely to begin hydralazine and/or clonidine after stabilization on nicardipine drip. Hyperlipidemia -continue atorvastatin DVT prevention with SCDs, avoiding enoxaparin due to risk of hemorrhagic stroke with hypertensive emergency Her backup decision makers are her 2 adult daughters present with her today. Time-Based Coding :: [TOTAL MINUTES] spent with patient and on the chart (including review of chart, obtaining history, exam, reviewing outside data, placing orders, documenting exam and treatment plan, and counseling patient) on [DATE].
--- NOTE | 2024-07-01 16:18 | EKG_ITS ---
[place] [id number] [place] [id number] Test Date: 2024-07-01 Pat Name: Tea Gould Department: [facility] Room: 228 Gender: Female [employer] Gener[employer] Maker: ERIN : [id number] Requested By: Order Number: [id number] Reading MD: Measurements Intervals [place] Rate: 92 P: UT: QRS: -35 QRSD: 124 T: 134 QT: 368 QTc: 455 Interpretive Statements Atrial fibrillation Left axis deviation Left ventricular hypertrophy with QRS widening and repolarization abnormality ( Marcus product ) Anteroseptal infarct , age undetermined Electronically Signed On 07-01-2024 16:19:51 PST by Jose Singh
[2024-07-01 17:03] LABS: PTT Partial Thromboplastin Tim 38 SECONDS (25.1-36.5)
--- NOTE | 2024-07-01 17:17 | DI.ECHO.S_ITS ---
[place] [facility] : : [address] : : [place] : : [id number] : : Phone: [phone] Echocardiogram Report + + :Name: SALEEM MAGANA Study Date: 07/02/2024 Height: 68 in : :[facility] ReadingLocation: Weight: 179 lb : : Gender: Female BSA: 1.9 m2 : :: 1935 Age: 88 yrs BP: 134/62 mmHg: :Reason For Study: HYPERTENSION : :Ordering Physician: LANCE, : :TIESHA Gill Performed By: Jaylin Cárdenas : :Referring: TIESHA LUCAS : + + Interpretation Summary The study quality was technically difficult. The patient was in sinus bradycardia with heart rates between 44-50 bpm during the exam. The ejection fraction is estimated to be 65-70%. The right ventricle grossly appears normal in size with probable normal systolic function. No obvious valvular abnormalities. Pulmonary artery pressures cannot be estimated because of the lack of a measurable TR jet velocity. Procedure: A two-dimensional transthoracic echocardiogram with color flow and Doppler was performed. The study quality was technically difficult. There is no prior echocardiogram noted for this patient. The patient was in sinus bradycardia with heart rates between 44-50 bpm during the exam. Left Ventricle: The left ventricle is normal in size and wall thickness. The ejection fraction is estimated to be 65-70%. Diastolic function could not be accurately assessed due to unobtainable data. Right Ventricle: The right ventricle is not well visualized. The right ventricle grossly appears normal in size with probable normal systolic function. Atria: The left atrium is not well visualized. Right atrium not well visualized. There is no Doppler evidence for an interatrial shunt. Mitral Valve: The mitral valve leaflets appear to open well. There is trace mitral regurgitation. Aortic Valve: The aortic valve opens well. The aortic valve is mildly calcified. There is no aortic valve stenosis. There is trace aortic regurgitation. Tricuspid Valve: The tricuspid valve is not well visualized. There is trace tricuspid regurgitation. Pulmonary artery pressures cannot be estimated because of the lack of a measurable TR jet velocity. Pulmonic Valve: The pulmonic valve is not well visualized. There is a trace or physiologic amount of pulmonic regurgitation. Great Vessels: The aortic root is normal size. The ascending aorta could not be visualized. The inferior vena cava was not well visualized. Pericardium/ Pleura There is no pericardial effusion. There is no pleural effusion. MMode/2D Measurements & Calculations LVIDd: 4.8 cm LVOT diam: 2.0 cm LVIDs: 3.3 cm Ao root diam: 2.8 cm FS: 30.5 % Ao Arch Diam (Prox Trans): 2.4 cm IVSd: 0.84 cm LVPWd: 0.74 cm LV boyd. diameter/BSA (cm/m^2): 2.5 LV sys. diameter/BSA (cm/m^2): 1.7 LA A2 area: 16.8 cm2 RA long axis: 4.7 cm LA A4 area: 13.6 cm2 RA area: 13.9 cm2 LA length (vol): 4.8 cm RA vol: 34.9 ml LA vol: 40.4 ml RA : 17.9 ml/m2 LA vol index: 20.7 ml/m2 RVD1 (basal): 3.6 cm TAPSE: 1.9 cm Doppler Measurements & Calculations Ao V2 max: 170.4 cm/sec LVOT Max Leno: 119.2 cm/sec Ao V2 mean: 125.7 cm/sec LV V1 max P.7 mmHg Ao max P.3 mmHg LV V1 VTI: 27.4 cm Ao mean P.0 mmHg LILIANA(I,D): 2.2 cm2 Ao V2 VTI: 38.4 cm LILIANA(V,D): 2.2 cm2 sev ratio: 0.71 LILIANA indexed to BSA (cm^2/m^2): 1.1 MV E max leno: 78.6 cm/sec PA V2 max: 98.3 cm/sec MV A max leno: 99.1 cm/sec PA V2 mean: 73.3 cm/sec MV E/A: 0.79 PA mean P.3 mmHg Med Peak E' Leno: 6.9 cm/sec PA pr(Accel): 29.3 mmHg E/E' med: 11.4 Lat Peak E' Leno: 6.8 cm/sec E/E' lat: 11.5 E/e' average: 11.4 MV dec time: 0.26 sec SV(LVOT): 86.2 ml Reading Physician:10:46 AM
[2024-07-01] MEDS: LOSARTAN 50 MG TABLET 100 MG PO (17:21)
[2024-07-01 18:56] LABS: Troponin I 0.017 ng/mL (0.01-0.034)
[2024-07-01] MEDS: METOPROLOL ER 25 MG TABLET PO (20:05)
[2024-07-02] VITALS (16 sets, daily range): BP systolic 101–167; BP diastolic 50–86; PULSE 40–57; RESP 15–24; TEMP 36.5–36.6; O2SAT 93–97
[2024-07-02] MEDS: NICARDIPINE 25 MG in SODIUM CHLORIDE 0.9% 240 ML 50 MG IV ×2 (01:48→06:51)
[2024-07-02 05:32] LABS: BUN Creatinine Ratio 21.9 (6-22); Blood Urea Nitrogen 21 mg/dL (7-17); Calcium 9.2 mg/dL (8.4-10.2); Carbon Dioxide 24 mmol/L (22-32); Chloride 110 mmol/L (98-107); Estimated Glomerular Filt Rate 57 mL/min (>60); Glucose 105 mg/dL (80-110); HEMOLYSIS < 15 (0-50); Sodium 141 mmol/L (137-145)
--- NOTE | 2024-07-02 06:47 | PC.NURSE ---
night shift manager RN note pt rested quietly overnight, used call henley appropriately to get up to bathroom with one assist with IV pole, mildly unsteady, walker used with effect, denied pain, lungs clear, O2 sats>92 on RA, abd soft with hypo BS, skin warm and dry, periph IV sites patent, L wrist sore in am, flushes well, nicardipine switched to RAC, BP 130-170/50-80s, care continued
--- NOTE | 2024-07-02 08:02 | P.PN_ITS ---
Subjective Subjective Date Patient Seen: 07/02/24 Exam Vital Signs (past 8 hours): - 07/02/24 01:00 07/02/24 02:00 07/02/24 03:00 Temperature Pulse Rate 54 L 54 L 57 L Respiratory Rate 15 18 18 Blood Pressure 148/64 H 155/63 H 159/63 H Pulse Oximetry 96 93 95 Oxygen Flow Rate 0 0 0 07/02/24 04:00 07/02/24 05:00 07/02/24 06:00 Temperature 97.8 F Pulse Rate 51 L 54 L 50 L Respiratory Rate 18 21 19 Blood Pressure 135/64 133/62 134/62 Pulse Oximetry 94 95 95 Oxygen Flow Rate 0 0 0 Oxygen Delivery Method Room Air Oxygen Flow Rate 0 Objective Labs 07/01/24 12:42 07/02/24 04:20 Labs: Laboratory Results - last 24 hr 07/01/24 07/01/24 07/01/24 12:42 16:22 18:26 WBC 6.8 RBC 4.78 Hgb 14.4 Hct 43.7 MCV 91.6 MCH 30.1 MCHC 32.9 RDW 14.3 Plt Count 194 Neut % (Auto) 57.6 Lymph % (Auto) 29.4 [place] % (Auto) 10.2 Eos % (Auto) 2.0 Baso % (Auto) 0.8 Neut # (Auto) 3900 Lymph # (Auto) 2000 [place] # (Auto) 700 Eos # (Auto) 100 Baso # (Auto) 100 PT 11.0 INR 1.0 APTT 38 H Sodium 142 Potassium 4.1 Chloride 107 Carbon Dioxide 27 BUN 23 H Creatinine 1.04 Estimated GFR 52 L BUN/Creatinine Ratio 22.1 H Glucose 96 Calcium 9.4 Total Bilirubin 0.6 AST 26 ALT 16 Alkaline Phosphatase 89 Troponin I 0.017 Total Protein 7.2 Albumin 4.3 Globulin 2.9 Albumin/Globulin Ratio 1.5 TSH 1.10 07/02/24 04:20 WBC RBC Hgb Hct MCV MCH MCHC RDW Plt Count Neut % (Auto) Lymph % (Auto) [place] % (Auto) Eos % (Auto) Baso % (Auto) Neut # (Auto) Lymph # (Auto) [place] # (Auto) Eos # (Auto) Baso # (Auto) PT INR APTT Sodium 141 Potassium 4.0 Chloride 110 H Carbon Dioxide 24 BUN 21 H Creatinine 0.96 Estimated GFR 57 L BUN/Creatinine Ratio 21.9 Glucose 105 Calcium 9.2 Total Bilirubin AST ALT Alkaline Phosphatase Troponin I Total Protein Albumin Globulin Albumin/Globulin Ratio [facility] Medical History (Updated 07/01/24 @ 16:24 by Christopher Youssef MD) Unspecified constipation (05/25/03) Skin sensation disturbance (05/17/04) Seborrheic keratosis, inflamed (12/01/02) Pain in limb (05/17/04) Acute serous otitis media, recurrent, unspecified ear (12/01/02) Headache (06/24/04) Elevated BP without diagnosis of hypertension (05/25/03) Dysuria Dizziness (12/01/02) Actinic keratosis (05/17/04) Leg edema Greater trochanteric bursitis of left hip Microscopic hematuria Urinary incontinence Vasovagal near syncope Ocular proptosis Medicare annual wellness visit, subsequent Encounter for well adult exam with abnormal findings Adhesive capsulitis Seasonal allergic rhinitis Squamous cell carcinoma (~2009) Chronic cough (~2018) Allergies (~1989) Fractures Chronic back pain Mumps (~1959) Measles (~193) Chicken pox (~1947) Vertigo Recurrent sinusitis History of recurrent ear infection Hearing loss Cataracts, bilateral Endometriosis (~1968) History of urinary incontinence Frequent UTI (~2015) Preventative health care History of squamous cell carcinoma Reactive airway disease Hyperlipidemia Hypertension (~1994) Surgical History Anesthesia History of surgical removal of squamous cell carcinoma of skin of nondenominational region (~2009) History of bladder suspension procedure (~1983) History of removal of cyst (~1977) History of stress test (~2018) Family History Father Cancer Mother Stroke Brother History of heart disease Brother History of heart disease Knee problem Hypertension Grandmother Stroke Grandmother Stroke Social History household members: other Smoking Status: Never smoker alcohol intake: never Assessment & Plan Assessment & Plan narrative: This is an 88-year-old female with hypertension, hearing loss, hyperlipidemia, reactive airway disease who presents with uncontrolled hypertension. She has no headache, chest pain or shortness of breath. Her 2 daughters explain that she was at physical therapy this morning starting on vestibular treatments for chronic vertigo when the session was stopped due to the high blood pressure. She had an initial blood pressure of 238/78 in the emergency department. Hypertensive emergency, present on admission -presenting blood pressure of 238/78. No chest pain, shortness breast or palpitations. No headaches. -no significant response to initial oral dose of amlodipine in the ED. -phone conversation with Dr. Ascencio in the ED with recommendation for nicardipine drip -the patient experienced a brief episode of EKG documented asymptomatic atrial fibrillation with heart rate in the 90s that was no longer present when she returned to her room from urinating. She has no history of atrial fibrillation. -check echocardiogram and TSH -check troponin -continue losartan. Resume metoprolol. -continue aspirin -likely to begin hydralazine and/or clonidine after stabilization on nicardipine drip. Hyperlipidemia -continue atorvastatin DVT prevention with SCDs, avoiding enoxaparin due to risk of hemorrhagic stroke with hypertensive emergency Her backup decision makers are her 2 adult daughters present with her today. Time-Based Coding :: [TOTAL MINUTES] spent with patient and on the chart (including review of chart, obtaining history, exam, reviewing outside data, placing orders, documenting exam and treatment plan, and counseling patient) on [DATE].
[2024-07-02] MEDS: LOSARTAN 50 MG TABLET 100 MG PO (08:32)
[2024-07-02] MEDS: ATORVASTATIN 20 MG TABLET PO (08:32)
[2024-07-02] MEDS: ASPIRIN EC 81 MG TABLET PO (08:32)
[2024-07-02] MEDS: MULTIVITAMIN 1 TABLET 1 TAB PO (08:32)
[2024-07-02] MEDS: METOPROLOL ER 25 MG TABLET PO (08:32)
[2024-07-02] MEDS: cloNIDine 0.1 MG TABLET 0.2 MG PO (08:42)
--- NOTE | 2024-07-02 10:11 | PC.NURSE ---
Pt on nicardipine gtt infusing at 5mg/hr, per provider start titrating gtt to off added catapress PO. Titrated gtt tp 2.5mg/hr, gave catapress, 0933 pt HR dropping into the low 40's pt asymptomatic 0950 Pt called this nurse c/o feeling dizzy, but needed to get up to bathroom, 2PA to bedside commode HR increased to 65, but dropped back to HR 39 when back in chair. 1006 Nicardipine gtt turned off BP 101/50 HR 40, Dr Singh updated on pt. no new orders at this time, care ongoing
--- NOTE | 2024-07-02 14:31 | PM.DS.1 ---
History of Present Illness History of Present Illness Date Patient Seen: 07/02/24 Chief complaint: high blood pressure Narrative: This is an 88-year-old female with hypertension, hearing loss, hyperlipidemia, reactive airway disease who presents with uncontrolled hypertension. She has no headache, chest pain or shortness of breath. Her 2 daughters explain that she was at physical therapy this morning starting on vestibular treatments for chronic vertigo when the session was stopped due to the high blood pressure. She had an initial blood pressure of 238/78 in the emergency department. Amlodipine was given at the direction of cardiology but had no significant effect so she was started on a nicardipine IV drip. She has been experiencing hypertension, usually controlled since at least 2000 but at some unclear point in the recent past it became much harder to control so she has been following up with Dr. Ascencio. The most recent changes were to stop the amlodipine/benazepril and metoprolol and to start her on losartan and nebivolol. Discharge Providers Provider Date of admission: 07/01/24 15:40 Discharge Date: 07/02/24 Primary care physician: Connie Mehta MD Discharge provider: Josy Singh MD Summary Hospital Course Discharge Diagnosis: This is an 88-year-old female with hypertension, hearing loss, hyperlipidemia, reactive airway disease who presents with uncontrolled hypertension. She has no headache, chest pain or shortness of breath. Her 2 daughters explain that she was at physical therapy this morning starting on vestibular treatments for chronic vertigo when the session was stopped due to the high blood pressure. She had an initial blood pressure of 238/78 in the emergency department. Hypertensive emergency, present on admission -presenting blood pressure of 238/78. No chest pain, shortness breast or palpitations. No headaches. -no significant response to initial oral dose of amlodipine in the ED. -phone conversation with Dr. Ascencio in the ED with recommendation for nicardipine drip -the patient experienced a brief episode of EKG documented asymptomatic atrial fibrillation with heart rate in the 90s that was no longer present when she returned to her room from urinating. She has no history of atrial fibrillation. -normal TSH and echocardiogram -troponin 0.017 -resumed metoprolol and losartan. Started on clonidine which produced bradycardia so was changed to hydralazine at discharge. -continue aspirin Hyperlipidemia -continue atorvastatin Hospital Course: She came in with severe hypertension and was admitted as a hypertensive emergency with a blood pressure of 238/78. Overnight the nicardipine drip was quite effective. She was given her previous prescription of metoprolol and added 0.2 mg of clonidine before the drip was stopped. She then experienced normal blood pressures but not surprisingly was bradycardic into the 30s and 40s. She was asymptomatic and with time, stopping the nicardipine, her heart rate came back up and she wished to be discharged. Her echocardiogram was normal. Her TSH was normal. She will be placed on hydralazine instead of clonidine. She will follow-up with Dr. Silva augustin. Status at Discharge Cognitive/behavioral status at discharge: at baseline, oriented Functional status at discharge: independent ambulation Overall status at discharge: patient is back to baseline Time Spent with Patient Time spent: Less than 30 minutes Exam Vital Signs (past 8 hours): - 07/02/24 07:00 07/02/24 07:00 07/02/24 08:00 Temperature 97.8 F Pulse Rate 52 L 48 L Respiratory Rate 19 19 Blood Pressure 156/66 H 146/62 H Pulse Oximetry 94 96 Oxygen Delivery Method Room Air Oxygen Flow Rate 0 0 07/02/24 08:32 07/02/24 09:00 07/02/24 09:12 Temperature Pulse Rate 52 L 48 L 48 L Respiratory Rate 19 Blood Pressure 167/80 H 138/86 138/86 Pulse Oximetry 96 Oxygen Delivery Method Oxygen Flow Rate 0 07/02/24 10:00 07/02/24 12:00 07/02/24 12:14 Temperature 97.7 F Pulse Rate 40 L 41 L 43 L Respiratory Rate 21 19 24 Blood Pressure 101/50 L 122/65 122/65 Pulse Oximetry 97 97 97 Oxygen Delivery Method Oxygen Flow Rate 0 0 0 07/02/24 13:00 Temperature Pulse Rate 44 L Respiratory Rate 19 Blood Pressure 125/60 Pulse Oximetry 97 Oxygen Delivery Method Oxygen Flow Rate 0 Oxygen Delivery Method Room Air Oxygen Flow Rate 0 Narrative Exam Narrative: Alert and oriented x3. No distress. Heart is regular rate and rhythm without murmur Lungs are clear to auscultation bilaterally Extremities have no ankle edema Objective Labs 07/01/24 12:42 07/02/24 04:20 Labs: Laboratory Results - last 24 hr 07/01/24 07/01/24 07/02/24 16:22 18:26 04:20 PT 11.0 INR 1.0 APTT 38 H Sodium 141 Potassium 4.0 Chloride 110 H Carbon Dioxide 24 BUN 21 H Creatinine 0.96 Estimated GFR 57 L BUN/Creatinine Ratio 21.9 Glucose 105 Calcium 9.2 Troponin I 0.017 TSH 1.10 [facility] Medical History (Updated 07/01/24 @ 16:24 by Christopher Youssef MD) Unspecified constipation (05/25/03) Skin sensation disturbance (05/17/04) Seborrheic keratosis, inflamed (12/01/02) Pain in limb (05/17/04) Acute serous otitis media, recurrent, unspecified ear (12/01/02) Headache (06/24/04) Elevated BP without diagnosis of hypertension (05/25/03) Dysuria Dizziness (12/01/02) Actinic keratosis (05/17/04) Leg edema Greater trochanteric bursitis of left hip Microscopic hematuria Urinary incontinence Vasovagal near syncope Ocular proptosis Medicare annual wellness visit, subsequent Encounter for well adult exam with abnormal findings Adhesive capsulitis Seasonal allergic rhinitis Squamous cell carcinoma (~2009) Chronic cough (~2018) Allergies (~1989) Fractures Chronic back pain Mumps (~1959) Measles (~1938) Chicken pox (~1947) Vertigo Recurrent sinusitis History of recurrent ear infection Hearing loss Cataracts, bilateral Endometriosis (~1968) History of urinary incontinence Frequent UTI (~2015) Preventative health care History of squamous cell carcinoma Reactive airway disease Hyperlipidemia Hypertension (~1994) Surgical History Anesthesia History of surgical removal of squamous cell carcinoma of skin of adventism region (~2009) History of bladder suspension procedure (~1983) History of removal of cyst (~1977) History of stress test (~2018) Family History Father Cancer Mother Stroke Brother History of heart disease Brother History of heart disease Knee problem Hypertension Grandmother Stroke Grandmother Stroke Social History household members: other Smoking Status: Never smoker alcohol intake: never Discharge Plan Discharge Plan Patient Disposition: Home Provider Discharge Comment: Follow up with Dr. Ascencio in 1 - 2 weeks. Notify his office if your heart rate remains less than 50. Discharge orders & Medications Prescriptions: New hydralazine 25 mg tablet 25 mg PO QID Qty: 120 0RF losartan 50 mg Tablet 100 mg PO DAILY Qty: 30 0RF metoprolol succinate 25 mg Tablet Extended Release 24 Hr 25 mg PO BID Qty: 60 0RF Continued albuterol sulfate 90 mcg/actuation HFA aerosol inhaler 2 puff inhalation QID PRN (Reason: shortness of breath or wheezing) Qty: 18 2RF atorvastatin 20 mg tablet 20 mg PO DAILY Qty: 90 0RF CoQ10 100 mg PO DAILY multivitamin Tablet 1 tab PO DAILY aspirin [Adult Aspirin Regimen] 81 mg tablet,delayed release (DR/EC) 81 mg PO DAILY Follow up/Referrals: Connie Mehta MD [Primary Care Provider] - Diet/Activity/Treatments Diet: Low-cholesterol Visit Report/Discharge Packet Stand Alone Forms: Patient Portal/API, Stroke Signs & Symptoms Discharge Data Primary Care Provider: Connie Mehta Attending Provider: Josy Singh Admit Date/Time: 07/01/24 15:40
== END 2024-07-02 15:15 | disposition home or self-care (01) ==
LOC: ED 12:45 → AC 15:45 → ICU 07-02 08:49 → AC 07-02 12:04 → ICU 07-02 12:04
PROVIDERS: Admitting Provider Family Medicine; Emergency Provider Emergency Medicine; Family Provider Student in an Organized Health Care Education/Training Program; PCP Student in an Organized Health Care Education/Training Program; Referring Provider Emergency Medicine; Visit Provider Family Medicine
DX: I16.1 Hypertensive emergency (principal); I10 Essential (primary) hypertension; E78.5 Hyperlipidemia, unspecified; J45.909 Unspecified asthma, uncomplicated; H91.90 Unspecified hearing loss, unspecified ear; I48.91 Unspecified atrial fibrillation; R00.1 Bradycardia, unspecified
CPT/HCPCS: 36415; 70450; 80048; 80053; 84443; 84484; 85025; 85610; 85730; 93005; 93306; 96365; 96366; 99284; 99291; G0378

== ENCOUNTER → 2024-07-01 12:28 | Outpatient (RCR) | payer MEDICARE, SELFPAY ==
--- NOTE | 2022-06-20 17:30 | PT.OIE ---
Current Diagnoses Pain in unspecified shoulder (06/20/22) Adhesive capsulitis of unspecified shoulder (06/20/22) Past Medical History (Last Reviewed 03/23/22 @ 10:43 by Sven Mattson DO) Adhesive capsulitis Allergies (~1989) Cataracts, bilateral Chicken pox (~1948) Chronic back pain Chronic cough (~2019) Endometriosis (~1969) Fractures Frequent UTI (~2015) Hearing loss History of recurrent ear infection History of squamous cell carcinoma History of urinary incontinence Hyperlipidemia Hypertension (~1994) Measles (~193) Multiple sclerosis (~1970) Mumps (~1959) Preventative health care Reactive airway disease Recurrent sinusitis Seasonal allergic rhinitis Squamous cell carcinoma (~2009) Vertigo Past Surgical History (Last Reviewed 03/23/22 @ 10:43 by Sven Mattson DO) Anesthesia History of bladder suspension procedure (~1983) History of removal of cyst (~1977) History of stress test (~2018) History of surgical removal of squamous cell carcinoma of skin of tenriism region (~2009) Visit Care Team Role Provider Type Sven Mattson DO Attending Provider Physician Family Provider Primary Care Provider Referring Provider Specialty: Family Practice Address: [address] [place] [address] Email: [email or web address] Physical Therapy Initial Evaluation PT-OP-A Visit Information Start: 06/14/22 14:13 Freq: Status: Active Protocol: Document 06/20/22 09:45 AW (Rec: 06/14/22 14:25 AW [id number]) Out-Patient Physical Therapy Visit Information Visit Information Visit Type Initial Evaluation Visit Start Time 09:00 Visit Stop Time 09:45 Total Visit Minutes 45 Visit Number 1 Evaluation Information Evaluation Date 06/20/22 PT-OP-B Current Condition Start: 06/14/22 14:13 Freq: Status: Active Protocol: Document 06/20/22 09:45 AW (Rec: 06/14/22 14:25 AW [id number]) Current Condition History of Current Condition Onset Date February 2022 Current Complaints function-limiting left shoulder pain History of Current Condition Davina is right handed. She took an armless chair to visit her neighbors in February. When she stood up and pushed off with left arm, she had pain in her arm immediately. Used ice and took tylenol (as well as ibuprofen initially but has since discontinued) but didn't get much relief. She continues to take tylenol at night. Pt can fall asleep around 10 but wakes up around 3 AM with left shoulder, lateral brachium and sometimes forearm pain. Her hand goes numb in her sleep sometimes. Pt gets occasional sharp pain in the shoulder if I move it wrong. Reaching across body and out to the side make the pain worse. Lifting overhead is limited with left arm. Some of the limitation is from the original fracture and pt reports she never regained full ROM. History of left humerus fracture 30 years ago and in the same place in 2016. She likes to hand laundry on a line outside and notes increased difficulty with this task as well as with styling her hair. Prior Treatments and Tests L shoulder x-ray 03/23/22: Old healed left proximal humeral shaft/surgical neck fracture and moderate left shoulder joint osteoarthritis. No acute fracture or dislocation. No gross soft tissue abnormalities. OP PT in 2020 for back and leg pain. Findings note chronic appearing deformity. Treatment Goals Patient/Caregiver Goals Wants to be able to hang laundry on a line outside. Wants to be able to style her hair with less effort and less pain. Would like to be able to reach across body to reach toilet paper roll with left hand without pain. Personal Factors Other Personal Factors That May Effect Osteopenia Therapy/Recovery PT-OP-C Subjective Start: 06/14/22 14:13 Freq: Status: Active Protocol: Document 06/20/22 09:45 AW (Rec: 06/20/22 10:14 AW [id number]) Patient Questionnaires Quick Dash- Upper Extremity Quick Dash UE Score 34 Quick Dash UE Impairment 20 to 39% Impaired (Score 20- 39) OP-PT Pain Assessment Pain Assessment Grid Paper Pain Assessment Grid Completed Yes: Scanned to EMR Home Pain Medication Use Pain Medications Used Yes Home Pain Medication Frequency Tylenol nightly Patient Goal Reduce need PT-OP-F Manual Assessment Start: 06/14/22 14:13 Freq: Status: Active Protocol: Document 06/20/22 09:45 AW (Rec: 06/20/22 10:19 AW [id number]) Manual Assessments Joint Mobility Assessment Joint Mobility Assessment Restriction noted in left GH inferior and posterior glides PT-OP-J Posture/Palpation/Skin Start: 06/14/22 14:13 Freq: Status: Active Protocol: Document 06/20/22 09:45 AW (Rec: 06/20/22 10:14 AW [id number]) Posture Evaluation Comments Posture Comments Pt has bilaterally rounded and forward shoulders, slightly forward head, mild to moderate dowager's hump. Palpation Assessment Location left brachium Palpation Findings Tenderness Palpation Details Pt has vaguely increased bulk in distal biceps with tenderness noted at distal muscle belly and at proximal biceps tendon. No specific tenderness at left rotator cuff. PT-OP-K Range of Motion Start: 06/14/22 14:13 Freq: Status: Active Protocol: Document 06/20/22 09:45 AW (Rec: 06/20/22 10:14 AW [id number]) Cervical Spine Range of Motion Cervical Spine Active Flexion 40 Extension 35 Rotation Left 60 Rotation Right 75 Lateral Flexion Left 15 Lateral Flexion Right 20 ROM Limitations Soft Tissue Tightness,Pain Shoulder Goniometric Range of Motion Shoulder left Shoulder ROM WFL No Flexion 80 Extension 65 Abduction 50 External Rotation at 0 degrees Abduction 77 Internal Rotation Behind Back (text) L5 Comments Flexion and abduction AROM severely limited. No significant change with PROM due to apparent capsular restriction and soft tissue tightness. Left shoulder crepitus noted especially with flexion. right Shoulder ROM WFL Yes Flexion 145 Extension 65 Abduction 145 External Rotation at 0 degrees Abduction 45 Internal Rotation Behind Back (text) T10 Shoulder ROM Limitations Shoulder ROM Limitations Soft Tissue Tightness Elbow/Forearm Range of Motion Elbow/Forearm bilat Elbow/Forearm ROM WFL Yes Comments WNL PT-OP-L Special Tests Start: 06/14/22 14:13 Freq: Status: Active Protocol: Document 06/20/22 09:45 AW (Rec: 06/20/22 10:14 AW [id number]) Special Tests Shoulder Special Tests IR/Horizontal ADD Impingement Test Results positive left [place] Biceps Test Results vaguely positive left Comments no pain with resisted elbow flexion or supination Drop Arm Rotator Cuff Test Results negative left; vaguely positive right PT-OP-M Strength Start: 06/14/22 14:13 Freq: Status: Active Protocol: Document 06/20/22 09:45 AW (Rec: 06/20/22 10:14 AW [id number]) Shoulder Strength Shoulder Manual Muscle Testing Left Flexion 4- Good- Extension 4+ Good+ Abduction (C5) 3+ Fair+ Adduction 4 Good External Rotation 4 Good Internal Rotation 4+ Good+ Right Flexion 4 Good Extension 4+ Good+ Abduction (C5) 4 Good Adduction 4+ Good+ External Rotation 4+ Good+ Internal Rotation 4+ Good+ Horizontal Adduction 4+ Good+ Elbow/Forearm Strength Elbow and Forearm Manual Muscle Testing bilat Flexion (C6) 4+ Good+ Extension (C7) 4 Good Supination 4+ Good+ PT-OP-Q Treatments Start: 06/14/22 14:13 Freq: Status: Active Protocol: Document 06/20/22 09:45 AW (Rec: 06/20/22 10:19 AW [id number]) Manual Therapy Treatment Soft Tissue Mobilization left brachium Body Location L biceps Mobilization Type Rolling,Strumming Intensity/Depth Superficial Body Position Hooklying Self-Care/Home Management Treatment Education Other Education Discussed evaluation findings and proposed plan of care focused on improving ROM, strength, and general shoulder mobility. Pt understood and agreed. PT-OP-T Assessment and Plan Start: 06/14/22 14:13 Freq: Status: Active Protocol: Document 06/20/22 09:45 AW (Rec: 06/20/22 10:27 AW [id number]) Physical Therapy Assessment Rehab Potential Rehabilitation Potential Good Evaluation Complexity Number of Personal Factors/Comorbidities 1-2 Number of Body Systems Impaired 1-2 Clinical Presentation at Evaluation Stable Impairments Impairments Functional Activities,Pain, Posture,ROM,Sensation,Soft Tissue Mobility,Strength Goals Four Impairment strength Residential Goal (LTG) Davina will improve left shoulder strength to 4+/5 in flexion and 4/5 in abduction to improve her tolerance for elevation. LTG Duration 09/08/22 Three Impairment impairment with daily activities Residential Goal (LTG) Davina will improve QuickDASH score from 34% impairment to 15% impairment or less as a measure of improved ease with daily activities. LTG Duration 09/08/22 Two Impairment ROM affects daily activities Residential Goal (LTG) Davina will improve left arm elevation to at least 100 degrees without significant compensations to allow her to hang laundry outside and to style her hair. LTG Duration 09/08/22 One Impairment lacks HEP Short Term Goal (STG) Davina will be instructed in HEP for left shoulder mobility , ROM, and strength to support therapy services provided in clinic. STG Duration 07/21/22 Physical Metallurgist Goal (LTG) Davina will be independent with HEP to manage her left shoulder and arm symptoms. LTG Duration 09/08/22 Assessment Summary Assessment Davina is an 86 yo woman who attends outpatient physical therapy with complaints of left shoulder and arm stiffness and pain since February when she remembers forcefully pushing off a chair and having immediate onset pain in her arm. She is severely limited in flexion and abduction AROM and PROM but not in external rotation. In fact, her right arm is much more limited in external rotation. Pt states she has had reduced ROM on the left for years due to a proximal humerus fracture 30 years ago and again in 2015. She states it has definitely gotten worse since February. Without evidence of capsular pattern of restriction, adhesive capsulitis seems less likely. Pt does have a slight distal bulge in her left biceps suggestive of some degree of biceps tendon tear. Pt is expected to benefit from skilled physical therapy to address ROM, strength, and soft tissue deficits to restore as much functional use of her left arm as possible. Physical Therapy Plan Frequency and Duration Frequency of Treatment 2x/Week Plan of Care Start Date 06/20/22 Plan of Care End Date 09/08/22 Therapeutic Interventions Therapeutic Interventions Home Exercise Program,Manual Therapy,Neuromuscular Re- education,Self-Care/Home Management,Soft Tissue Mobilization,Therapeutic Activities,Therapeutic Exercises Modalities Cold Pack/Ice Massage,Electric Stimulation,Hot Packs Next Visit Focus/Plan Next Note Type Treatment Note Next Visit Plan further assess cervical spine to address distal neuro signs. initiate AAROM in supine with dowel. STM L brachium. Initiate scapular stab/ strength.
--- NOTE | 2022-06-20 17:31 | PT.OIE ---
Current Diagnoses Pain in unspecified shoulder (06/20/22) Adhesive capsulitis of unspecified shoulder (06/20/22) Abnormal posture (06/20/22) Weakness (06/20/22) Past Medical History (Last Reviewed 03/23/22 @ 10:43 by Sven Mattson DO) Adhesive capsulitis Allergies (~1989) Cataracts, bilateral Chicken pox (~194) Chronic back pain Chronic cough (~2018) Endometriosis (~1968) Fractures Frequent UTI (~2015) Hearing loss History of recurrent ear infection History of squamous cell carcinoma History of urinary incontinence Hyperlipidemia Hypertension (~1994) Measles (~193) Multiple sclerosis (~1969) Mumps (~1959) Preventative health care Reactive airway disease Recurrent sinusitis Seasonal allergic rhinitis Squamous cell carcinoma (~2009) Vertigo Past Surgical History (Last Reviewed 03/23/22 @ 10:43 by Sven Mattson DO) Anesthesia History of bladder suspension procedure (~1983) History of removal of cyst (~1977) History of stress test (~2018) History of surgical removal of squamous cell carcinoma of skin of amish region (~2009) Visit Care Team Role Provider Type Sven Mattson DO Attending Provider Physician Family Provider Primary Care Provider Referring Provider Specialty: Family Practice Address: [address] [place] [address], [facility] Email: [email or web address] Physical Therapy Initial Evaluation PT-OP-A Visit Information Start: 06/14/22 14:13 Freq: Status: Active Protocol: Document 06/20/22 09:45 AW (Rec: 06/14/22 14:25 AW [id number]) Out-Patient Physical Therapy Visit Information Visit Information Visit Type Initial Evaluation Visit Start Time 09:00 Visit Stop Time 09:45 Total Visit Minutes 45 Visit Number 1 Evaluation Information Evaluation Date 06/20/22 PT-OP-B Current Condition Start: 06/14/22 14:13 Freq: Status: Active Protocol: Document 06/20/22 09:45 AW (Rec: 06/14/22 14:25 AW [id number]) Current Condition History of Current Condition Onset Date February 2022 Current Complaints function-limiting left shoulder pain History of Current Condition Davina is right handed. She took an armless chair to visit her neighbors in February. When she stood up and pushed off with left arm, she had pain in her arm immediately. Used ice and took tylenol (as well as ibuprofen initially but has since discontinued) but didn't get much relief. She continues to take tylenol at night. Pt can fall asleep around 10 but wakes up around 3 AM with left shoulder, lateral brachium and sometimes forearm pain. Her hand goes numb in her sleep sometimes. Pt gets occasional sharp pain in the shoulder if I move it wrong. Reaching across body and out to the side make the pain worse. Lifting overhead is limited with left arm. Some of the limitation is from the original fracture and pt reports she never regained full ROM. History of left humerus fracture 30 years ago and in the same place in 2016. She likes to hand laundry on a line outside and notes increased difficulty with this task as well as with styling her hair. Prior Treatments and Tests L shoulder x-ray 03/23/22: Old healed left proximal humeral shaft/surgical neck fracture and moderate left shoulder joint osteoarthritis. No acute fracture or dislocation. No gross soft tissue abnormalities. OP PT in 2020 for back and leg pain. Findings note chronic appearing deformity. Treatment Goals Patient/Caregiver Goals Wants to be able to hang laundry on a line outside. Wants to be able to style her hair with less effort and less pain. Would like to be able to reach across body to reach toilet paper roll with left hand without pain. Personal Factors Other Personal Factors That May Effect Osteopenia Therapy/Recovery PT-OP-C Subjective Start: 06/14/22 14:13 Freq: Status: Active Protocol: Document 06/20/22 09:45 AW (Rec: 06/20/22 10:14 AW [id number]) Patient Questionnaires Quick Dash- Upper Extremity Quick Dash UE Score 34 Quick Dash UE Impairment 20 to 39% Impaired (Score 20- 39) OP-PT Pain Assessment Pain Assessment Grid Paper Pain Assessment Grid Completed Yes: Scanned to EMR Home Pain Medication Use Pain Medications Used Yes Home Pain Medication Frequency Tylenol nightly Patient Goal Reduce need PT-OP-F Manual Assessment Start: 06/14/22 14:13 Freq: Status: Active Protocol: Document 06/20/22 09:45 AW (Rec: 06/20/22 10:19 AW [id number]) Manual Assessments Joint Mobility Assessment Joint Mobility Assessment Restriction noted in left GH inferior and posterior glides PT-OP-J Posture/Palpation/Skin Start: 06/14/22 14:13 Freq: Status: Active Protocol: Document 06/20/22 09:45 AW (Rec: 06/20/22 10:14 AW [id number]) Posture Evaluation Comments Posture Comments Pt has bilaterally rounded and forward shoulders, slightly forward head, mild to moderate dowager's hump. Palpation Assessment Location left brachium Palpation Findings Tenderness Palpation Details Pt has vaguely increased bulk in distal biceps with tenderness noted at distal muscle belly and at proximal biceps tendon. No specific tenderness at left rotator cuff. PT-OP-K Range of Motion Start: 06/14/22 14:13 Freq: Status: Active Protocol: Document 06/20/22 09:45 AW (Rec: 06/20/22 10:14 AW [id number]) Cervical Spine Range of Motion Cervical Spine Active Flexion 40 Extension 35 Rotation Left 60 Rotation Right 75 Lateral Flexion Left 15 Lateral Flexion Right 20 ROM Limitations Soft Tissue Tightness,Pain Shoulder Goniometric Range of Motion Shoulder left Shoulder ROM WFL No Flexion 80 Extension 65 Abduction 50 External Rotation at 0 degrees Abduction 77 Internal Rotation Behind Back (text) L5 Comments Flexion and abduction AROM severely limited. No significant change with PROM due to apparent capsular restriction and soft tissue tightness. Left shoulder crepitus noted especially with flexion. right Shoulder ROM WFL Yes Flexion 145 Extension 65 Abduction 145 External Rotation at 0 degrees Abduction 45 Internal Rotation Behind Back (text) T10 Shoulder ROM Limitations Shoulder ROM Limitations Soft Tissue Tightness Elbow/Forearm Range of Motion Elbow/Forearm bilat Elbow/Forearm ROM WFL Yes Comments WNL PT-OP-L Special Tests Start: 06/14/22 14:13 Freq: Status: Active Protocol: Document 06/20/22 09:45 AW (Rec: 06/20/22 10:14 AW [id number]) Special Tests Shoulder Special Tests IR/Horizontal ADD Impingement Test Results positive left [place] Biceps Test Results vaguely positive left Comments no pain with resisted elbow flexion or supination Drop Arm Rotator Cuff Test Results negative left; vaguely positive right PT-OP-M Strength Start: 06/14/22 14:13 Freq: Status: Active Protocol: Document 06/20/22 09:45 AW (Rec: 06/20/22 10:14 AW [id number]) Shoulder Strength Shoulder Manual Muscle Testing Left Flexion 4- Good- Extension 4+ Good+ Abduction (C5) 3+ Fair+ Adduction 4 Good External Rotation 4 Good Internal Rotation 4+ Good+ Right Flexion 4 Good Extension 4+ Good+ Abduction (C5) 4 Good Adduction 4+ Good+ External Rotation 4+ Good+ Internal Rotation 4+ Good+ Horizontal Adduction 4+ Good+ Elbow/Forearm Strength Elbow and Forearm Manual Muscle Testing bilat Flexion (C6) 4+ Good+ Extension (C7) 4 Good Supination 4+ Good+ PT-OP-Q Treatments Start: 06/14/22 14:13 Freq: Status: Active Protocol: Document 06/20/22 09:45 AW (Rec: 06/20/22 10:19 AW [id number]) Manual Therapy Treatment Soft Tissue Mobilization left brachium Body Location L biceps Mobilization Type Rolling,Strumming Intensity/Depth Superficial Body Position Hooklying Self-Care/Home Management Treatment Education Other Education Discussed evaluation findings and proposed plan of care focused on improving ROM, strength, and general shoulder mobility. Pt understood and agreed. PT-OP-T Assessment and Plan Start: 06/14/22 14:13 Freq: Status: Active Protocol: Document 06/20/22 09:45 AW (Rec: 06/20/22 10:27 AW [id number]) Physical Therapy Assessment Rehab Potential Rehabilitation Potential Good Evaluation Complexity Number of Personal Factors/Comorbidities 1-2 Number of Body Systems Impaired 1-2 Clinical Presentation at Evaluation Stable Impairments Impairments Functional Activities,Pain, Posture,ROM,Sensation,Soft Tissue Mobility,Strength Goals Four Impairment strength Poem Writer Goal (LTG) Davina will improve left shoulder strength to 4+/5 in flexion and 4/5 in abduction to improve her tolerance for elevation. LTG Duration 09/08/22 Three Impairment impairment with daily activities Assisted Goal (LTG) Davina will improve QuickDASH score from 34% impairment to 15% impairment or less as a measure of improved ease with daily activities. LTG Duration 09/08/22 Two Impairment ROM affects daily activities Poem Writer Goal (LTG) Davina will improve left arm elevation to at least 100 degrees without significant compensations to allow her to hang laundry outside and to style her hair. LTG Duration 09/08/22 One Impairment lacks HEP Short Term Goal (STG) Davina will be instructed in HEP for left shoulder mobility , ROM, and strength to support therapy services provided in clinic. STG Duration 07/21/22 Poem Writer Goal (LTG) Davina will be independent with HEP to manage her left shoulder and arm symptoms. LTG Duration 09/08/22 Assessment Summary Assessment Davina is an 86 yo woman who attends outpatient physical therapy with complaints of left shoulder and arm stiffness and pain since February when she remembers forcefully pushing off a chair and having immediate onset pain in her arm. She is severely limited in flexion and abduction AROM and PROM but not in external rotation. In fact, her right arm is much more limited in external rotation. Pt states she has had reduced ROM on the left for years due to a proximal humerus fracture 30 years ago and again in 2015. She states it has definitely gotten worse since February. Without evidence of capsular pattern of restriction, adhesive capsulitis seems less likely. Pt does have a slight distal bulge in her left biceps suggestive of some degree of biceps tendon tear. Pt is expected to benefit from skilled physical therapy to address ROM, strength, and soft tissue deficits to restore as much functional use of her left arm as possible. Physical Therapy Plan Frequency and Duration Frequency of Treatment 2x/Week Plan of Care Start Date 06/20/22 Plan of Care End Date 09/08/22 Therapeutic Interventions Therapeutic Interventions Home Exercise Program,Manual Therapy,Neuromuscular Re- education,Self-Care/Home Management,Soft Tissue Mobilization,Therapeutic Activities,Therapeutic Exercises Modalities Cold Pack/Ice Massage,Electric Stimulation,Hot Packs Next Visit Focus/Plan Next Note Type Treatment Note Next Visit Plan further assess cervical spine to address distal neuro signs. initiate AAROM in supine with dowel. STM L brachium. Initiate scapular stab/ strength.
--- NOTE | 2022-06-20 17:32 | PT.OPPOC ---
Physical, Occupational & Speech Therapy At [facility] Current Diagnoses Pain in unspecified shoulder (06/20/22) Adhesive capsulitis of unspecified shoulder (06/20/22) Abnormal posture (06/20/22) Weakness (06/20/22) Visit Care Team Role Provider Type Sven Mattson DO Attending Provider Physician Family Provider Primary Care Provider Referring Provider Specialty: [facility] Address: [address] [place] [address], [facility] Email: [email or web address] Plan Of Care PT-OP-T Assessment and Plan Start: 06/14/22 14:13 Freq: Status: Active Protocol: Document 06/20/22 09:45 AW (Rec: 06/20/22 10:27 AW [id number]) Physical Therapy Assessment Rehab Potential Rehabilitation Potential Good Evaluation Complexity Number of Personal Factors/Comorbidities 1-2 Number of Body Systems Impaired 1-2 Clinical Presentation at Evaluation Stable Impairments Impairments Functional Activities,Pain, Posture,ROM,Sensation,Soft Tissue Mobility,Strength Goals Four Impairment strength Patient Care Director Goal (LTG) Davina will improve left shoulder strength to 4+/5 in flexion and 4/5 in abduction to improve her tolerance for elevation. LTG Duration 09/08/22 Three Impairment impairment with daily activities Mcfp Goal (LTG) Davina will improve QuickDASH score from 34% impairment to 15% impairment or less as a measure of improved ease with daily activities. LTG Duration 09/08/22 Two Impairment ROM affects daily activities Patient Care Director Goal (LTG) Davina will improve left arm elevation to at least 100 degrees without significant compensations to allow her to hang laundry outside and to style her hair. LTG Duration 09/08/22 One Impairment lacks HEP Short Term Goal (STG) Davina will be instructed in HEP for left shoulder mobility , ROM, and strength to support therapy services provided in clinic. STG Duration 07/21/22 Patient Care Director Goal (LTG) Davina will be independent with HEP to manage her left shoulder and arm symptoms. LTG Duration 09/08/22 Assessment Summary Assessment Davina is an 86 yo woman who attends outpatient physical therapy with complaints of left shoulder and arm stiffness and pain since February when she remembers forcefully pushing off a chair and having immediate onset pain in her arm. She is severely limited in flexion and abduction AROM and PROM but not in external rotation. In fact, her right arm is much more limited in external rotation. Pt states she has had reduced ROM on the left for years due to a proximal humerus fracture 30 years ago and again in 2015. She states it has definitely gotten worse since February. Without evidence of capsular pattern of restriction, adhesive capsulitis seems less likely. Pt does have a slight distal bulge in her left biceps suggestive of some degree of biceps tendon tear. Pt is expected to benefit from skilled physical therapy to address ROM, strength, and soft tissue deficits to restore as much functional use of her left arm as possible. Physical Therapy Plan Frequency and Duration Frequency of Treatment 2x/Week Plan of Care Start Date 06/20/22 Plan of Care End Date 09/08/22 Therapeutic Interventions Therapeutic Interventions Home Exercise Program,Manual Therapy,Neuromuscular Re- education,Self-Care/Home Management,Soft Tissue Mobilization,Therapeutic Activities,Therapeutic Exercises Modalities Cold Pack/Ice Massage,Electric Stimulation,Hot Packs Next Visit Focus/Plan Next Note Type Treatment Note Next Visit Plan further assess cervical spine to address distal neuro signs. initiate AAROM in supine with dowel. STM L brachium. Initiate scapular stab/ strength. Plan of Care Dates Plan of Care Start Date 06/20/22 Plan of Care End Date 09/08/22 Electronically Signed by: Olga James PT 06/20/22 0671 If you are in agreement with this Plan of Care, please return a signed and dated copy. I have reviewed this Plan of Care and certify that the skilled therapy services above are required to meet the patient?s needs. Physician Signature Date Printed Name and Credentials Clinical Instructor Signature Printed Name and Credentials
--- NOTE | 2022-06-22 09:58 | PT.OTN ---
Current Diagnoses Pain in unspecified shoulder (06/22/22) Adhesive capsulitis of unspecified shoulder (06/22/22) Abnormal posture (06/22/22) Weakness (06/22/22) Physical Therapy Treatment Note PT-OP-A Visit Information Start: 06/14/22 14:13 Freq: Status: Active Protocol: Document 06/22/22 08:47 AW (Rec: 06/22/22 09:57 AW [id number]) Out-Patient Physical Therapy Visit Information Visit Information Visit Type Treatment Note Visit Start Time 09:00 Visit Stop Time 09:45 Total Visit Minutes 45 Visit Number 2 Evaluation Information Evaluation Date 06/20/22 PT-OP-B Current Condition Start: 06/14/22 14:13 Freq: Status: Active Protocol: Document 06/20/22 09:45 AW (Rec: 06/14/22 14:25 AW [id number]) Current Condition History of Current Condition Onset Date February 2022 Current Complaints function-limiting left shoulder pain History of Current Condition Davina is right handed. She took an armless chair to visit her neighbors in February. When she stood up and pushed off with left arm, she had pain in her arm immediately. Used ice and took tylenol (as well as ibuprofen initially but has since discontinued) but didn't get much relief. She continues to take tylenol at night. Pt can fall asleep around 10 but wakes up around 3 AM with left shoulder, lateral brachium and sometimes forearm pain. Her hand goes numb in her sleep sometimes. Pt gets occasional sharp pain in the shoulder if I move it wrong. Reaching across body and out to the side make the pain worse. Lifting overhead is limited with left arm. Some of the limitation is from the original fracture and pt reports she never regained full ROM. History of left humerus fracture 30 years ago and in the same place in 2016. She likes to hand laundry on a line outside and notes increased difficulty with this task as well as with styling her hair. Prior Treatments and Tests L shoulder x-ray 03/23/22: Old healed left proximal humeral shaft/surgical neck fracture and moderate left shoulder joint osteoarthritis. No acute fracture or dislocation. No gross soft tissue abnormalities. OP PT in 2020 for back and leg pain. Findings note chronic appearing deformity. Treatment Goals Patient/Caregiver Goals Wants to be able to hang laundry on a line outside. Wants to be able to style her hair with less effort and less pain. Would like to be able to reach across body to reach toilet paper roll with left hand without pain. Personal Factors Other Personal Factors That May Effect Osteopenia Therapy/Recovery PT-OP-C Subjective Start: 06/14/22 14:13 Freq: Status: Active Protocol: Document 06/22/22 08:47 AW (Rec: 06/22/22 09:57 AW [id number]) OP-PT Subjective Patient Comments Patient Comments Feeling good today. It doesn' t really hurt much unless I move it wrong. PT-OP-F Manual Assessment Start: 06/14/22 14:13 Freq: Status: Active Protocol: Document 06/20/22 09:45 AW (Rec: 06/20/22 10:19 AW [id number]) Manual Assessments Joint Mobility Assessment Joint Mobility Assessment Restriction noted in left GH inferior and posterior glides PT-OP-J Posture/Palpation/Skin Start: 06/14/22 14:13 Freq: Status: Active Protocol: Document 06/20/22 09:45 AW (Rec: 06/20/22 10:14 AW [id number]) Posture Evaluation Comments Posture Comments Pt has bilaterally rounded and forward shoulders, slightly forward head, mild to moderate dowager's hump. Palpation Assessment Location left brachium Palpation Findings Tenderness Palpation Details Pt has vaguely increased bulk in distal biceps with tenderness noted at distal muscle belly and at proximal biceps tendon. No specific tenderness at left rotator cuff. PT-OP-K Range of Motion Start: 06/14/22 14:13 Freq: Status: Active Protocol: Document 06/20/22 09:45 AW (Rec: 06/20/22 10:14 AW [id number]) Cervical Spine Range of Motion Cervical Spine Active Flexion 40 Extension 35 Rotation Left 60 Rotation Right 75 Lateral Flexion Left 15 Lateral Flexion Right 20 ROM Limitations Soft Tissue Tightness,Pain Shoulder Goniometric Range of Motion Shoulder left Shoulder ROM WFL No Flexion 80 Extension 65 Abduction 50 External Rotation at 0 degrees Abduction 77 Internal Rotation Behind Back (text) L5 Comments Flexion and abduction AROM severely limited. No significant change with PROM due to apparent capsular restriction and soft tissue tightness. Left shoulder crepitus noted especially with flexion. right Shoulder ROM WFL Yes Flexion 145 Extension 65 Abduction 145 External Rotation at 0 degrees Abduction 45 Internal Rotation Behind Back (text) T10 Shoulder ROM Limitations Shoulder ROM Limitations Soft Tissue Tightness Elbow/Forearm Range of Motion Elbow/Forearm bilat Elbow/Forearm ROM WFL Yes Comments WNL PT-OP-L Special Tests Start: 06/14/22 14:13 Freq: Status: Active Protocol: Document 06/20/22 09:45 AW (Rec: 06/20/22 10:14 AW [id number]) Special Tests Shoulder Special Tests IR/Horizontal ADD Impingement Test Results positive left [place] Biceps Test Results vaguely positive left Comments no pain with resisted elbow flexion or supination Drop Arm Rotator Cuff Test Results negative left; vaguely positive right PT-OP-M Strength Start: 06/14/22 14:13 Freq: Status: Active Protocol: Document 06/20/22 09:45 AW (Rec: 06/20/22 10:14 AW [id number]) Shoulder Strength Shoulder Manual Muscle Testing Left Flexion 4- Good- Extension 4+ Good+ Abduction (C5) 3+ Fair+ Adduction 4 Good External Rotation 4 Good Internal Rotation 4+ Good+ Right Flexion 4 Good Extension 4+ Good+ Abduction (C5) 4 Good Adduction 4+ Good+ External Rotation 4+ Good+ Internal Rotation 4+ Good+ Horizontal Adduction 4+ Good+ Elbow/Forearm Strength Elbow and Forearm Manual Muscle Testing bilat Flexion (C6) 4+ Good+ Extension (C7) 4 Good Supination 4+ Good+ PT-OP-Q Treatments Start: 06/14/22 14:13 Freq: Status: Active Protocol: Document 06/22/22 08:47 AW (Rec: 06/22/22 09:57 AW [id number]) Cardio Equipment Upper Body Ergometer (UBE) Duration (Minutes) 5 RPM 60 Seat Position 11 Height 2.5 Other f/b Therapeutic Exercises Supine Exercises protraction Supine Exercise Name protraction Side bilateral Resistance AROM Reps/Minutes 2x15 Comments pain free; HEP AAROM Supine Exercise Name AAROM - flexion, abd Side left Equipment Used pvc Reps/Minutes x20 Comments deep breath at end range; HEP (flexion only) Sitting Exercises scapular retraction Sitting Exercise Name scapular retraction Side bilateral Resistance AROM and vs PT resistance Reps/Minutes 2x10 Comments HEP Manual Therapy Treatment Soft Tissue Mobilization left brachium Body Location L biceps, lateral triceps, RTC insertion Mobilization Type Rolling,Strumming Intensity/Depth Moderate Body Position Hooklying Comments Pt more irritable along lateral triceps today but tolerates moderate pressure Joint Mobilizations GH Joint GH Direction inf, post Grade II Body Position Hooklying Other Other Manual Treatments PROM flexion, abd, IR/ER (with arm in 20 deg abd). Self-Care/Home Management Treatment Education Other Education Encouraged icing at home if pt is sore day after PT. PT-OP-R Modalities Start: 06/14/22 14:13 Freq: Status: Active Protocol: Document 06/22/22 08:47 AW (Rec: 06/22/22 09:58 AW [id number]) Hot Pack/Cold Pack Treatment Cold Pack Location left shoulder and brachium Patient Position Hooklying Treatment Duration (minutes) 10 Patient Tolerance Good PT-OP-T Assessment and Plan Start: 06/14/22 14:13 Freq: Status: Active Protocol: Document 06/22/22 08:47 AW (Rec: 06/22/22 09:57 AW [id number]) Physical Therapy Assessment Goals Four Impairment strength Intermediate Goal (LTG) Davina will improve left shoulder strength to 4+/5 in flexion and 4/5 in abduction to improve her tolerance for elevation. LTG Duration 09/08/22 Three Impairment impairment with daily activities Intermediate Goal (LTG) Davina will improve QuickDASH score from 34% impairment to 15% impairment or less as a measure of improved ease with daily activities. LTG Duration 09/08/22 Two Impairment ROM affects daily activities Intermediate Goal (LTG) Davina will improve left arm elevation to at least 100 degrees without significant compensations to allow her to hang laundry outside and to style her hair. LTG Duration 09/08/22 One Impairment lacks HEP Short Term Goal (STG) Davina will be instructed in HEP for left shoulder mobility , ROM, and strength to support therapy services provided in clinic. STG Duration 07/21/22 Heart Specialist Goal (LTG) Davina will be independent with HEP to manage her left shoulder and arm symptoms. LTG Duration 09/08/22 Assessment Summary Assessment Davina had some discomfort with backward pedaling on UBE and needed cues to stay within pain free range for AAROM. Protraction was not irritating . She is reporting more lateral brachium pain today vs anterior. Will continue gentle GH mobs, scapular stabilization, and AAROM. Physical Therapy Plan Frequency and Duration Frequency of Treatment 2x/Week Plan of Care Start Date 06/20/22 Plan of Care End Date 09/08/22 Therapeutic Interventions Therapeutic Interventions Home Exercise Program,Manual Therapy,Neuromuscular Re- education,Self-Care/Home Management,Soft Tissue Mobilization,Therapeutic Activities,Therapeutic Exercises Modalities Cold Pack/Ice Massage,Electric Stimulation,Hot Packs Next Visit Focus/Plan Next Note Type Treatment Note Next Visit Plan revisit AAROM flex and abd. Continue scap stab. Consider table slides.
--- NOTE | 2022-06-27 12:38 | PT.OTN ---
Current Diagnoses Pain in unspecified shoulder (06/27/22) Adhesive capsulitis of unspecified shoulder (06/27/22) Abnormal posture (06/27/22) Weakness (06/27/22) Physical Therapy Treatment Note PT-OP-A Visit Information Start: 06/14/22 14:13 Freq: Status: Active Protocol: Document 06/27/22 08:37 AW (Rec: 06/27/22 09:50 AW [id number]) Out-Patient Physical Therapy Visit Information Visit Information Visit Type Treatment Note Visit Start Time 09:00 Visit Stop Time 09:50 Total Visit Minutes 50 Visit Number 3 Evaluation Information Evaluation Date 06/20/22 PT-OP-B Current Condition Start: 06/14/22 14:13 Freq: Status: Active Protocol: Document 06/20/22 09:45 AW (Rec: 06/14/22 14:25 AW [id number]) Current Condition History of Current Condition Onset Date February 2022 Current Complaints function-limiting left shoulder pain History of Current Condition Davina is right handed. She took an armless chair to visit her neighbors in February. When she stood up and pushed off with left arm, she had pain in her arm immediately. Used ice and took tylenol (as well as ibuprofen initially but has since discontinued) but didn't get much relief. She continues to take tylenol at night. Pt can fall asleep around 10 but wakes up around 3 AM with left shoulder, lateral brachium and sometimes forearm pain. Her hand goes numb in her sleep sometimes. Pt gets occasional sharp pain in the shoulder if I move it wrong. Reaching across body and out to the side make the pain worse. Lifting overhead is limited with left arm. Some of the limitation is from the original fracture and pt reports she never regained full ROM. History of left humerus fracture 30 years ago and in the same place in 2016. She likes to hand laundry on a line outside and notes increased difficulty with this task as well as with styling her hair. Prior Treatments and Tests L shoulder x-ray 03/23/22: Old healed left proximal humeral shaft/surgical neck fracture and moderate left shoulder joint osteoarthritis. No acute fracture or dislocation. No gross soft tissue abnormalities. OP PT in 2020 for back and leg pain. Findings note chronic appearing deformity. Treatment Goals Patient/Caregiver Goals Wants to be able to hang laundry on a line outside. Wants to be able to style her hair with less effort and less pain. Would like to be able to reach across body to reach toilet paper roll with left hand without pain. Personal Factors Other Personal Factors That May Effect Osteopenia Therapy/Recovery PT-OP-C Subjective Start: 06/14/22 14:13 Freq: Status: Active Protocol: Document 06/27/22 08:37 AW (Rec: 06/27/22 09:50 AW [id number]) OP-PT Subjective Patient Comments Patient Comments Was sore for a few days after last treatment. Has done some of her exercises. PT-OP-F Manual Assessment Start: 06/14/22 14:13 Freq: Status: Active Protocol: Document 06/20/22 09:45 AW (Rec: 06/20/22 10:19 AW [id number]) Manual Assessments Joint Mobility Assessment Joint Mobility Assessment Restriction noted in left GH inferior and posterior glides PT-OP-J Posture/Palpation/Skin Start: 06/14/22 14:13 Freq: Status: Active Protocol: Document 06/20/22 09:45 AW (Rec: 06/20/22 10:14 AW [id number]) Posture Evaluation Comments Posture Comments Pt has bilaterally rounded and forward shoulders, slightly forward head, mild to moderate dowager's hump. Palpation Assessment Location left brachium Palpation Findings Tenderness Palpation Details Pt has vaguely increased bulk in distal biceps with tenderness noted at distal muscle belly and at proximal biceps tendon. No specific tenderness at left rotator cuff. PT-OP-K Range of Motion Start: 06/14/22 14:13 Freq: Status: Active Protocol: Document 06/20/22 09:45 AW (Rec: 06/20/22 10:14 AW [id number]) Cervical Spine Range of Motion Cervical Spine Active Flexion 40 Extension 35 Rotation Left 60 Rotation Right 75 Lateral Flexion Left 15 Lateral Flexion Right 20 ROM Limitations Soft Tissue Tightness,Pain Shoulder Goniometric Range of Motion Shoulder left Shoulder ROM WFL No Flexion 80 Extension 65 Abduction 50 External Rotation at 0 degrees Abduction 77 Internal Rotation Behind Back (text) L5 Comments Flexion and abduction AROM severely limited. No significant change with PROM due to apparent capsular restriction and soft tissue tightness. Left shoulder crepitus noted especially with flexion. right Shoulder ROM WFL Yes Flexion 145 Extension 65 Abduction 145 External Rotation at 0 degrees Abduction 45 Internal Rotation Behind Back (text) T10 Shoulder ROM Limitations Shoulder ROM Limitations Soft Tissue Tightness Elbow/Forearm Range of Motion Elbow/Forearm bilat Elbow/Forearm ROM WFL Yes Comments WNL PT-OP-L Special Tests Start: 06/14/22 14:13 Freq: Status: Active Protocol: Document 06/20/22 09:45 AW (Rec: 06/20/22 10:14 AW [id number]) Special Tests Shoulder Special Tests IR/Horizontal ADD Impingement Test Results positive left [place] Biceps Test Results vaguely positive left Comments no pain with resisted elbow flexion or supination Drop Arm Rotator Cuff Test Results negative left; vaguely positive right PT-OP-M Strength Start: 06/14/22 14:13 Freq: Status: Active Protocol: Document 06/20/22 09:45 AW (Rec: 06/20/22 10:14 AW [id number]) Shoulder Strength Shoulder Manual Muscle Testing Left Flexion 4- Good- Extension 4+ Good+ Abduction (C5) 3+ Fair+ Adduction 4 Good External Rotation 4 Good Internal Rotation 4+ Good+ Right Flexion 4 Good Extension 4+ Good+ Abduction (C5) 4 Good Adduction 4+ Good+ External Rotation 4+ Good+ Internal Rotation 4+ Good+ Horizontal Adduction 4+ Good+ Elbow/Forearm Strength Elbow and Forearm Manual Muscle Testing bilat Flexion (C6) 4+ Good+ Extension (C7) 4 Good Supination 4+ Good+ PT-OP-Q Treatments Start: 06/14/22 14:13 Freq: Status: Active Protocol: Document 06/27/22 08:37 AW (Rec: 06/27/22 09:50 AW [id number]) Cardio Equipment Upper Body Ergometer (UBE) Duration (Minutes) 5 RPM 60 Seat Position 11 Height 2.5 Other forward only Therapeutic Exercises Supine Exercises protraction Supine Exercise Name protraction Side bilateral Resistance AROM Reps/Minutes 2x15 Comments extra time spent facilitating scap glide Sitting Exercises table slide Sitting Exercise Name table slide - flexion Side left Comments HEP closed chain scap glide Sitting Exercise Name closed chain scap glide Side left Resistance PT stabilizes scap as pt rotates trunk both direction Reps/Minutes x15 scapular retraction Sitting Exercise Name scapular retraction Side bilateral Resistance AROM and vs PT resistance Reps/Minutes 2x10 Comments HEP Manual Therapy Treatment Soft Tissue Mobilization left brachium Body Location L biceps, lateral triceps, RTC insertion Mobilization Type Rolling,Strumming Intensity/Depth Moderate Body Position Hooklying Joint Mobilizations GH Joint GH Direction inf, post Grade II Body Position Hooklying Other Other Manual Treatments PROM flexion, abd, IR/ER (with arm in 20 deg abd). Self-Care/Home Management Treatment Education Other Education Encouraged icing at home if pt is sore day after PT. PT-OP-R Modalities Start: 06/14/22 14:13 Freq: Status: Active Protocol: Document 06/27/22 08:37 AW (Rec: 06/27/22 09:50 AW [id number]) Hot Pack/Cold Pack Treatment Cold Pack Location left shoulder and brachium Patient Position Hooklying Treatment Duration (minutes) 10 Patient Tolerance Good PT-OP-T Assessment and Plan Start: 06/14/22 14:13 Freq: Status: Active Protocol: Document 06/27/22 08:37 AW (Rec: 06/27/22 09:50 AW [id number]) Physical Therapy Assessment Goals Four Impairment strength Maxillofacial Prosthetics Dentist Goal (LTG) Davina will improve left shoulder strength to 4+/5 in flexion and 4/5 in abduction to improve her tolerance for elevation. LTG Duration 09/08/22 Three Impairment impairment with daily activities Alf Goal (LTG) Davina will improve QuickDASH score from 34% impairment to 15% impairment or less as a measure of improved ease with daily activities. LTG Duration 09/08/22 Two Impairment ROM affects daily activities Alf Goal (LTG) Davina will improve left arm elevation to at least 100 degrees without significant compensations to allow her to hang laundry outside and to style her hair. LTG Duration 09/08/22 One Impairment lacks HEP Short Term Goal (STG) Davina will be instructed in HEP for left shoulder mobility , ROM, and strength to support therapy services provided in clinic. STG Duration 07/21/22 Maxillofacial Prosthetics Dentist Goal (LTG) Davina will be independent with HEP to manage her left shoulder and arm symptoms. LTG Duration 09/08/22 Assessment Summary Assessment Focused on manual therapy to improve scapular mobility and to decrease muscle tension around the shoulder. Pt's upper thoracic spinal changes appear to be contributing to her shoulder dysfunction and should be addressed. Physical Therapy Plan Frequency and Duration Frequency of Treatment 2x/Week Plan of Care Start Date 06/20/22 Plan of Care End Date 09/08/22 Therapeutic Interventions Therapeutic Interventions Home Exercise Program,Manual Therapy,Neuromuscular Re- education,Self-Care/Home Management,Soft Tissue Mobilization,Therapeutic Activities,Therapeutic Exercises Modalities Cold Pack/Ice Massage,Electric Stimulation,Hot Packs Next Visit Focus/Plan Next Note Type Treatment Note
--- NOTE | 2022-06-29 09:46 | PT.OTN ---
Current Diagnoses Pain in unspecified shoulder (06/29/22) Adhesive capsulitis of unspecified shoulder (06/29/22) Abnormal posture (06/29/22) Weakness (06/29/22) Physical Therapy Treatment Note PT-OP-A Visit Information Start: 06/14/22 14:13 Freq: Status: Active Protocol: Document 06/29/22 08:36 AW (Rec: 06/29/22 09:46 AW [id number]) Out-Patient Physical Therapy Visit Information Visit Information Visit Type Treatment Note Visit Start Time 09:00 Visit Stop Time 09:45 Total Visit Minutes 45 Visit Number 4 Evaluation Information Evaluation Date 06/20/22 PT-OP-B Current Condition Start: 06/14/22 14:13 Freq: Status: Active Protocol: Document 06/20/22 09:45 AW (Rec: 06/14/22 14:25 AW [id number]) Current Condition History of Current Condition Onset Date February 2022 Current Complaints function-limiting left shoulder pain History of Current Condition Davina is right handed. She took an armless chair to visit her neighbors in February. When she stood up and pushed off with left arm, she had pain in her arm immediately. Used ice and took tylenol (as well as ibuprofen initially but has since discontinued) but didn't get much relief. She continues to take tylenol at night. Pt can fall asleep around 10 but wakes up around 3 AM with left shoulder, lateral brachium and sometimes forearm pain. Her hand goes numb in her sleep sometimes. Pt gets occasional sharp pain in the shoulder if I move it wrong. Reaching across body and out to the side make the pain worse. Lifting overhead is limited with left arm. Some of the limitation is from the original fracture and pt reports she never regained full ROM. History of left humerus fracture 30 years ago and in the same place in 2016. She likes to hand laundry on a line outside and notes increased difficulty with this task as well as with styling her hair. Prior Treatments and Tests L shoulder x-ray 03/23/22: Old healed left proximal humeral shaft/surgical neck fracture and moderate left shoulder joint osteoarthritis. No acute fracture or dislocation. No gross soft tissue abnormalities. OP PT in 2020 for back and leg pain. Findings note chronic appearing deformity. Treatment Goals Patient/Caregiver Goals Wants to be able to hang laundry on a line outside. Wants to be able to style her hair with less effort and less pain. Would like to be able to reach across body to reach toilet paper roll with left hand without pain. Personal Factors Other Personal Factors That May Effect Osteopenia Therapy/Recovery PT-OP-C Subjective Start: 06/14/22 14:13 Freq: Status: Active Protocol: Document 06/27/22 08:37 AW (Rec: 06/27/22 09:50 AW [id number]) OP-PT Subjective Patient Comments Patient Comments Was sore for a few days after last treatment. Has done some of her exercises. PT-OP-F Manual Assessment Start: 06/14/22 14:13 Freq: Status: Active Protocol: Document 06/20/22 09:45 AW (Rec: 06/20/22 10:19 AW [id number]) Manual Assessments Joint Mobility Assessment Joint Mobility Assessment Restriction noted in left GH inferior and posterior glides PT-OP-J Posture/Palpation/Skin Start: 06/14/22 14:13 Freq: Status: Active Protocol: Document 06/20/22 09:45 AW (Rec: 06/20/22 10:14 AW [id number]) Posture Evaluation Comments Posture Comments Pt has bilaterally rounded and forward shoulders, slightly forward head, mild to moderate dowager's hump. Palpation Assessment Location left brachium Palpation Findings Tenderness Palpation Details Pt has vaguely increased bulk in distal biceps with tenderness noted at distal muscle belly and at proximal biceps tendon. No specific tenderness at left rotator cuff. PT-OP-K Range of Motion Start: 06/14/22 14:13 Freq: Status: Active Protocol: Document 06/20/22 09:45 AW (Rec: 06/20/22 10:14 AW [id number]) Cervical Spine Range of Motion Cervical Spine Active Flexion 40 Extension 35 Rotation Left 60 Rotation Right 75 Lateral Flexion Left 15 Lateral Flexion Right 20 ROM Limitations Soft Tissue Tightness,Pain Shoulder Goniometric Range of Motion Shoulder left Shoulder ROM WFL No Flexion 80 Extension 65 Abduction 50 External Rotation at 0 degrees Abduction 77 Internal Rotation Behind Back (text) L5 Comments Flexion and abduction AROM severely limited. No significant change with PROM due to apparent capsular restriction and soft tissue tightness. Left shoulder crepitus noted especially with flexion. right Shoulder ROM WFL Yes Flexion 145 Extension 65 Abduction 145 External Rotation at 0 degrees Abduction 45 Internal Rotation Behind Back (text) T10 Shoulder ROM Limitations Shoulder ROM Limitations Soft Tissue Tightness Elbow/Forearm Range of Motion Elbow/Forearm bilat Elbow/Forearm ROM WFL Yes Comments WNL PT-OP-L Special Tests Start: 06/14/22 14:13 Freq: Status: Active Protocol: Document 06/20/22 09:45 AW (Rec: 06/20/22 10:14 AW [id number]) Special Tests Shoulder Special Tests IR/Horizontal ADD Impingement Test Results positive left [place] Biceps Test Results vaguely positive left Comments no pain with resisted elbow flexion or supination Drop Arm Rotator Cuff Test Results negative left; vaguely positive right PT-OP-M Strength Start: 06/14/22 14:13 Freq: Status: Active Protocol: Document 06/20/22 09:45 AW (Rec: 06/20/22 10:14 AW [id number]) Shoulder Strength Shoulder Manual Muscle Testing Left Flexion 4- Good- Extension 4+ Good+ Abduction (C5) 3+ Fair+ Adduction 4 Good External Rotation 4 Good Internal Rotation 4+ Good+ Right Flexion 4 Good Extension 4+ Good+ Abduction (C5) 4 Good Adduction 4+ Good+ External Rotation 4+ Good+ Internal Rotation 4+ Good+ Horizontal Adduction 4+ Good+ Elbow/Forearm Strength Elbow and Forearm Manual Muscle Testing bilat Flexion (C6) 4+ Good+ Extension (C7) 4 Good Supination 4+ Good+ PT-OP-Q Treatments Start: 06/14/22 14:13 Freq: Status: Active Protocol: Document 06/29/22 08:36 AW (Rec: 06/29/22 09:46 AW [id number]) Cardio Equipment Upper Body Ergometer (UBE) Duration (Minutes) 5 RPM 60 Seat Position 11 Height 3 Other forward only Therapeutic Exercises Sitting Exercises GH ER resisted Sitting Exercise Name GH ER resisted Side bilateral Resistance TB1 - issued Reps/Minutes 2x15 Comments HEP; focus on scap retract table slide Sitting Exercise Name table slide - flexion, scaption Side left Comments HEP closed chain scap glide Sitting Exercise Name closed chain scap glide Side left Resistance PT stabilizes scap as pt rotates trunk both direction Reps/Minutes x15 Standing Exercises GH isometrics Standing Exercise Name GH isometrics Side bilateral Reps/Minutes 5SH x 12 Comments HEP Manual Therapy Treatment Soft Tissue Mobilization left brachium Body Location L biceps, lateral triceps, RTC insertion Mobilization Type Rolling,Strumming Intensity/Depth Moderate Body Position Hooklying Joint Mobilizations GH Joint GH Direction inf, post Grade II Body Position Hooklying Other Other Manual Treatments PROM flexion, abd, IR/ER (with arm in 20 deg abd). PT-OP-R Modalities Start: 06/14/22 14:13 Freq: Status: Active Protocol: Document 06/27/22 08:37 AW (Rec: 06/27/22 09:50 AW [id number]) Hot Pack/Cold Pack Treatment Cold Pack Location left shoulder and brachium Patient Position Hooklying Treatment Duration (minutes) 10 Patient Tolerance Good PT-OP-T Assessment and Plan Start: 06/14/22 14:13 Freq: Status: Active Protocol: Document 06/29/22 08:36 AW (Rec: 06/29/22 09:46 AW [id number]) Physical Therapy Assessment Goals Four Impairment strength Local Government Legislator Goal (LTG) Davina will improve left shoulder strength to 4+/5 in flexion and 4/5 in abduction to improve her tolerance for elevation. LTG Duration 09/08/22 Three Impairment impairment with daily activities Local Government Legislator Goal (LTG) Davina will improve QuickDASH score from 34% impairment to 15% impairment or less as a measure of improved ease with daily activities. LTG Duration 09/08/22 Two Impairment ROM affects daily activities Local Government Legislator Goal (LTG) Davina will improve left arm elevation to at least 100 degrees without significant compensations to allow her to hang laundry outside and to style her hair. LTG Duration 09/08/22 One Impairment lacks HEP Short Term Goal (STG) Davina will be instructed in HEP for left shoulder mobility , ROM, and strength to support therapy services provided in clinic. STG Duration 07/21/22 Local Government Legislator Goal (LTG) Davina will be independent with HEP to manage her left shoulder and arm symptoms. LTG Duration 09/08/22 Assessment Summary Assessment Focused on scapular mechanics in all exercises today, including added isometrics. Davina feels she may be interested in discharging after next visit. Physical Therapy Plan Frequency and Duration Frequency of Treatment 2x/Week Plan of Care Start Date 06/20/22 Plan of Care End Date 09/08/22 Therapeutic Interventions Therapeutic Interventions Home Exercise Program,Manual Therapy,Neuromuscular Re- education,Self-Care/Home Management,Soft Tissue Mobilization,Therapeutic Activities,Therapeutic Exercises Modalities Cold Pack/Ice Massage,Electric Stimulation,Hot Packs Next Visit Focus/Plan Next Note Type Treatment Note Next Visit Plan Consolidate HEP
--- NOTE | 2022-07-05 12:24 | PT.OTN ---
Current Diagnoses Pain in unspecified shoulder (07/05/22) Adhesive capsulitis of unspecified shoulder (07/05/22) Abnormal posture (07/05/22) Weakness (07/05/22) Physical Therapy Treatment Note PT-OP-A Visit Information Start: 06/14/22 14:13 Freq: Status: Active Protocol: Document 07/05/22 08:43 AW (Rec: 07/05/22 12:24 AW [id number]) Out-Patient Physical Therapy Visit Information Visit Information Visit Type Treatment Note Visit Start Time 11:15 Visit Stop Time 12:00 Total Visit Minutes 45 Visit Number 5 Evaluation Information Evaluation Date 06/20/22 PT-OP-B Current Condition Start: 06/14/22 14:13 Freq: Status: Active Protocol: Document 06/20/22 09:45 AW (Rec: 06/14/22 14:25 AW [id number]) Current Condition History of Current Condition Onset Date February 2022 Current Complaints function-limiting left shoulder pain History of Current Condition Davina is right handed. She took an armless chair to visit her neighbors in February. When she stood up and pushed off with left arm, she had pain in her arm immediately. Used ice and took tylenol (as well as ibuprofen initially but has since discontinued) but didn't get much relief. She continues to take tylenol at night. Pt can fall asleep around 10 but wakes up around 3 AM with left shoulder, lateral brachium and sometimes forearm pain. Her hand goes numb in her sleep sometimes. Pt gets occasional sharp pain in the shoulder if I move it wrong. Reaching across body and out to the side make the pain worse. Lifting overhead is limited with left arm. Some of the limitation is from the original fracture and pt reports she never regained full ROM. History of left humerus fracture 30 years ago and in the same place in 2016. She likes to hand laundry on a line outside and notes increased difficulty with this task as well as with styling her hair. Prior Treatments and Tests L shoulder x-ray 03/23/22: Old healed left proximal humeral shaft/surgical neck fracture and moderate left shoulder joint osteoarthritis. No acute fracture or dislocation. No gross soft tissue abnormalities. OP PT in 2020 for back and leg pain. Findings note chronic appearing deformity. Treatment Goals Patient/Caregiver Goals Wants to be able to hang laundry on a line outside. Wants to be able to style her hair with less effort and less pain. Would like to be able to reach across body to reach toilet paper roll with left hand without pain. Personal Factors Other Personal Factors That May Effect Osteopenia Therapy/Recovery PT-OP-C Subjective Start: 06/14/22 14:13 Freq: Status: Active Protocol: Document 07/05/22 08:43 AW (Rec: 07/05/22 12:24 AW [id number]) OP-PT Subjective Patient Comments Patient Comments Davina doesn't feel things are getting any better with her shoulder. It's mostly ok but then I move the wrong way and it hurts the same. Patient Reported Progress Same PT-OP-F Manual Assessment Start: 06/14/22 14:13 Freq: Status: Active Protocol: Document 06/20/22 09:45 AW (Rec: 06/20/22 10:19 AW [id number]) Manual Assessments Joint Mobility Assessment Joint Mobility Assessment Restriction noted in left GH inferior and posterior glides PT-OP-J Posture/Palpation/Skin Start: 06/14/22 14:13 Freq: Status: Active Protocol: Document 06/20/22 09:45 AW (Rec: 06/20/22 10:14 AW [id number]) Posture Evaluation Comments Posture Comments Pt has bilaterally rounded and forward shoulders, slightly forward head, mild to moderate dowager's hump. Palpation Assessment Location left brachium Palpation Findings Tenderness Palpation Details Pt has vaguely increased bulk in distal biceps with tenderness noted at distal muscle belly and at proximal biceps tendon. No specific tenderness at left rotator cuff. PT-OP-K Range of Motion Start: 06/14/22 14:13 Freq: Status: Active Protocol: Document 06/20/22 09:45 AW (Rec: 06/20/22 10:14 AW [id number]) Cervical Spine Range of Motion Cervical Spine Active Flexion 40 Extension 35 Rotation Left 60 Rotation Right 75 Lateral Flexion Left 15 Lateral Flexion Right 20 ROM Limitations Soft Tissue Tightness,Pain Shoulder Goniometric Range of Motion Shoulder left Shoulder ROM WFL No Flexion 80 Extension 65 Abduction 50 External Rotation at 0 degrees Abduction 77 Internal Rotation Behind Back (text) L5 Comments Flexion and abduction AROM severely limited. No significant change with PROM due to apparent capsular restriction and soft tissue tightness. Left shoulder crepitus noted especially with flexion. right Shoulder ROM WFL Yes Flexion 145 Extension 65 Abduction 145 External Rotation at 0 degrees Abduction 45 Internal Rotation Behind Back (text) T10 Shoulder ROM Limitations Shoulder ROM Limitations Soft Tissue Tightness Elbow/Forearm Range of Motion Elbow/Forearm bilat Elbow/Forearm ROM WFL Yes Comments WNL PT-OP-L Special Tests Start: 06/14/22 14:13 Freq: Status: Active Protocol: Document 06/20/22 09:45 AW (Rec: 06/20/22 10:14 AW [id number]) Special Tests Shoulder Special Tests IR/Horizontal ADD Impingement Test Results positive left [place] Biceps Test Results vaguely positive left Comments no pain with resisted elbow flexion or supination Drop Arm Rotator Cuff Test Results negative left; vaguely positive right PT-OP-M Strength Start: 06/14/22 14:13 Freq: Status: Active Protocol: Document 06/20/22 09:45 AW (Rec: 06/20/22 10:14 AW [id number]) Shoulder Strength Shoulder Manual Muscle Testing Left Flexion 4- Good- Extension 4+ Good+ Abduction (C5) 3+ Fair+ Adduction 4 Good External Rotation 4 Good Internal Rotation 4+ Good+ Right Flexion 4 Good Extension 4+ Good+ Abduction (C5) 4 Good Adduction 4+ Good+ External Rotation 4+ Good+ Internal Rotation 4+ Good+ Horizontal Adduction 4+ Good+ Elbow/Forearm Strength Elbow and Forearm Manual Muscle Testing bilat Flexion (C6) 4+ Good+ Extension (C7) 4 Good Supination 4+ Good+ PT-OP-Q Treatments Start: 06/14/22 14:13 Freq: Status: Active Protocol: Document 07/05/22 08:43 AW (Rec: 07/05/22 12:24 AW [id number]) Therapeutic Exercises Sitting Exercises table slide Sitting Exercise Name table slide - flexion, scaption Side left Comments HEP closed chain scap glide Sitting Exercise Name closed chain scap glide Side left Resistance PT stabilizes scap as pt rotates trunk both direction Reps/Minutes x15 scapular retraction Sitting Exercise Name scapular retraction Side bilateral Resistance AROM and vs PT resistance Reps/Minutes 2x10 Comments HEP Standing Exercises GH isometrics Standing Exercise Name GH isometrics - flexion and extension only Side bilateral Reps/Minutes 5SH x 12 Comments HEP Manual Therapy Treatment Soft Tissue Mobilization left brachium Body Location L biceps, lateral triceps, RTC insertion Mobilization Type Rolling,Strumming Intensity/Depth Moderate Body Position Hooklying Joint Mobilizations scapulothoracic Joint scapulothoracic Direction inferior, medial Body Position Sidelying A/C Joint A/C Direction gapping Grade II Body Position Hooklying Other Other Manual Treatments PROM flexion, abd, IR/ER (with arm in 20 deg abd). PT-OP-R Modalities Start: 06/14/22 14:13 Freq: Status: Active Protocol: Document 06/27/22 08:37 AW (Rec: 06/27/22 09:50 AW [id number]) Hot Pack/Cold Pack Treatment Cold Pack Location left shoulder and brachium Patient Position Hooklying Treatment Duration (minutes) 10 Patient Tolerance Good PT-OP-T Assessment and Plan Start: 06/14/22 14:13 Freq: Status: Active Protocol: Document 07/05/22 08:43 AW (Rec: 07/05/22 12:24 AW [id number]) Physical Therapy Assessment Goals Four Impairment strength Care Home Goal (LTG) Davina will improve left shoulder strength to 4+/5 in flexion and 4/5 in abduction to improve her tolerance for elevation. LTG Duration 09/08/22 Three Impairment impairment with daily activities Care Home Goal (LTG) Davina will improve QuickDASH score from 34% impairment to 15% impairment or less as a measure of improved ease with daily activities. LTG Duration 09/08/22 Two Impairment ROM affects daily activities Care Home Goal (LTG) Davina will improve left arm elevation to at least 100 degrees without significant compensations to allow her to hang laundry outside and to style her hair. LTG Duration 09/08/22 One Impairment lacks HEP Short Term Goal (STG) Davina will be instructed in HEP for left shoulder mobility , ROM, and strength to support therapy services provided in clinic. STG Duration 07/21/22 Logging Truck Driver Goal (LTG) Davina will be independent with HEP to manage her left shoulder and arm symptoms. LTG Duration 09/08/22 Assessment Summary Assessment Continued focus on scapular mobility and decreasing muscle tension. PROM is slowly improving but pt feels her symptoms are unchanged, especially with reaching behind and reaching across her body. Pt would like to have one more visit and then discharge. Educated pt on possibility of referral to orthopedics. Pt states she is hesitant to pursue further treatment. Physical Therapy Plan Frequency and Duration Frequency of Treatment 2x/Week Plan of Care Start Date 06/20/22 Plan of Care End Date 09/08/22 Therapeutic Interventions Therapeutic Interventions Home Exercise Program,Manual Therapy,Neuromuscular Re- education,Self-Care/Home Management,Soft Tissue Mobilization,Therapeutic Activities,Therapeutic Exercises Modalities Cold Pack/Ice Massage,Electric Stimulation,Hot Packs Next Visit Focus/Plan Next Note Type Discharge Summary Next Visit Plan Consolidate HEP
== END | disposition home or self-care (01) ==
LOC: PHYS 06-20 08:45
PROVIDERS: Family Provider Family Medicine; PCP Family Medicine; Referring Provider Family Medicine; Visit Provider Family Medicine
DX: M75.00 Adhesive capsulitis of unspecified shoulder (principal); M25.519 Pain in unspecified shoulder; R29.3 Abnormal posture; R53.1 Weakness
CPT/HCPCS: 97110; 97140; 97161

== ENCOUNTER 2024-07-14 12:15 | Outpatient (RCR) | payer MEDICARE, SELFPAY ==
--- NOTE | 2024-07-01 11:08 | PT-OP ANOTE ---
Pt arrived for Initial Evaluation as scheduled, with daughter present. Due to pt's medical history, Blood Pressure was measured fairly shortly into subjective history. Mechanical BP cuff reading observed as 234/86. Multiple reading taken with minimal variations in reading. Manual BP was then taken to ensure accuracy, measured 218/68. Therapist made decision to cancel eval at that time, and strongly recommended pt and daughter go to ED immediately. They were in agreement with this plan. Eval moved to later date.
--- NOTE | 2024-07-10 10:48 | PT.OIE ---
Current Diagnoses Dizziness and giddiness (07/10/24) Weakness (07/10/24) Abnormal vestibular function study (07/10/24) History of falling (07/10/24) Past Medical History (Last Updated 03/13/24 @ 09:36 by Connie Mehta MD) Actinic keratosis (05/17/04) Acute serous otitis media, recurrent, unspecified ear (12/01/02) Adhesive capsulitis Allergies (~1989) Cataracts, bilateral Chicken pox (~194) Chronic back pain Chronic cough (~2018) Dizziness (12/01/02) Dysuria Elevated BP without diagnosis of hypertension (05/25/03) Encounter for well adult exam with abnormal findings Endometriosis (~1968) Fractures Frequent UTI (~2015) Greater trochanteric bursitis of left hip Headache (06/24/04) Hearing loss History of recurrent ear infection History of squamous cell carcinoma History of urinary incontinence Hyperlipidemia Hypertension (~1994) Leg edema Measles (~193) Medicare annual wellness visit, subsequent Microscopic hematuria Mumps (~1959) Ocular proptosis Pain in limb (05/17/04) Preventative health care Reactive airway disease Recurrent sinusitis Seasonal allergic rhinitis Seborrheic keratosis, inflamed (12/01/02) Skin sensation disturbance (05/17/04) Squamous cell carcinoma (~2009) Unspecified constipation (05/25/03) Urinary incontinence Vasovagal near syncope Vertigo Past Surgical History (Last Reviewed 03/27/23 @ 09:48 by Sven Mattson DO) Anesthesia History of bladder suspension procedure (~1983) History of removal of cyst (~1977) History of stress test (~2018) History of surgical removal of squamous cell carcinoma of skin of evangelical region (~2009) Visit Care Team Role Provider Type Connie Mehta MD Attending Provider Physician Family Provider Primary Care Provider Referring Provider Specialty: Family Practice Obstetrics Address: [address] [place] [address], [id number] Email: [email or web address] Physical Therapy Initial Evaluation PT-OP-A Visit Information Start: 07/10/24 10:31 Freq: Status: Active Protocol: Document 07/10/24 09:45 DCW (Rec: 07/10/24 10:39 MIW [id number]) Out-Patient Physical Therapy Visit Information Visit Information Visit Type Initial Evaluation Visit Start Time 09:45 Visit Stop Time 10:30 Visit Number 1 Number of KENNEL HAND Visits 0 Evaluation Information Evaluation Date 07/10/24 PT-OP-B Current Condition Start: 07/10/24 10:31 Freq: Status: Active Protocol: Document 07/10/24 09:45 DCW (Rec: 07/10/24 10:39 MIW [id number]) Current Condition History of Current Condition Onset Date Six month history Current Complaints Positional vertigo, path deviation during gait, HTN History of Current Condition Pt is an 88 year old female complaining of a six month history of motion-induced vertigo. Pt had previously attempted to have a vestibular assessment last week, however evaluation was ended and pt was sent to the ER due to severe HTN (234/88), for which she was eventually hospitalized for one night. Comes back in today with a more reasonable BP of 160/68. Pt reports episodes last maybe five minutes. Symptoms are provoked by moving her head quickly and getting up at night to use the restroom. Does not that with recent changes to her blood pressure medications, many of her symptoms of dizziness and poor balance seem to have decreased or resolved altogether. Treatment Goals Patient/Caregiver Goals Improved stability PT-OP-C Subjective Start: 07/10/24 10:31 Freq: Status: Active Protocol: Document 07/10/24 09:45 DCW (Rec: 07/10/24 10:43 [facility] [id number]) OP-PT Subjective Patient Comments Patient Comments I walk like a drunk. Patient Questionnaires Dizziness Handicap Inventory DHI Score 50% DHI Functional Impairment 40 to 59% Impaired (Score 40- 59) PT-OP-O Vestibular Start: 07/10/24 10:31 Freq: Status: Active Protocol: Document 07/10/24 09:45 DCW (Rec: 07/10/24 10:43 MIW [id number]) Vestibular Assessment Auditory Tests [place] Test Lateralizes right Rinne Test Negative Air Conduction Results Equal Visual Testing Smooth Pursuits Horizontal Saccadic Corrections Smooth Pursuits Vertical Saccadic Corrections Saccades Horizontal WNL Saccades Vertical WNL Heave Test Positive Bilateral Thrust Head Positive Bilateral [place] String Test WNL Convergence Test 26 cm Positional Testing Yousuf-Hallpike Positive Right,Upbeating,< 60 Seconds Comments Vestibular Comments Pt appeared to have brief nystagmus with left [place]- Hallpike, however unable to open her eyes long enough to assess directionality. Much more strongly positive right PT-OP-Q Treatments Start: 07/10/24 10:31 Freq: Status: Active Protocol: Document 07/10/24 09:45 DCW (Rec: 07/10/24 10:39 DCW [id number]) Canalithic Repositioning BPPV Treatment Vitor Affected Canal(s) Right Posterior Reps x1 Comments Modified Vitor PT-OP-T Assessment and Plan Start: 07/10/24 10:31 Freq: Status: Active Protocol: Document 07/10/24 09:45 DCW (Rec: 07/10/24 10:48 DCW [id number]) Physical Therapy Assessment Rehab Potential Rehabilitation Potential Excellent Evaluation Complexity Number of Personal Factors/Comorbidities 3 or More Number of Body Systems Impaired 4 or More Clinical Presentation at Evaluation Unstable Impairments Impairments Balance,Functional Activities, Functional Mobility,Gait, Vestibular Goals Two Impairment Positive right Yousuf-Hallpike test Intermediate Goal (LTG) Pt to present with negative positional testing bilaterally in order to demonstrate successful treatment of BPPV. LTG Duration 09/07/24 One Impairment Pt experiences vertigo with positional changes Short Term Goal (STG) Pt to report ability to perform bed mobility with no instances of vertigo over one full week STG Duration 08/08/24 Assessment Summary Assessment During right Yousuf-Hallpike test , pt complained of vertigo and demonstrated up-beating, torsional nystagmus lasting approximately 15 seconds, consistent with diagnosis of right-sided posterior canal BPPV, canalithiasis-type. Pt was treated with a right-sided modified Vitor maneuver. Pt complained of symptoms in the first and third position, which is normally indicative of a successful treatment. Further positional testing was negative. Pt and her daughter were educated on BPPV, expectations for treatment, possible recurrence (BPPV has a ~50% recurrence rate in the five years following treatment ), and post-Vitor restrictions . Pt to return in ~1 week for a follow-up appointment, and intermittently afterward as indicated for treatment of BPPV. Due to pt complaints of path deviation during gait, may benefit from further balance testing if symptoms are not resolved with successful BPPV treatment. Physical Therapy Plan Frequency and Duration Frequency of Treatment 1-2x/week Plan of Care Start Date 07/10/24 Plan of Care End Date 09/07/24 Therapeutic Interventions Therapeutic Interventions Balance Training,Canalithic Repositioning,Gait Training, Home Exercise Program,Manual Therapy,Neuromuscular Re- education,Patient/Caregiver Education,Self-Care/Home Management,Therapeutic Activities,Therapeutic Exercises,Vestibular Rehabilitation Next Visit Focus/Plan Next Note Type Treatment Note Next Visit Plan Positional testing, CRM as indicated. Balance testing if symptoms persist
--- NOTE | 2024-07-10 10:48 | PT.OPPOC ---
Physical, Occupational & Speech Therapy At [facility] Current Diagnoses Dizziness and giddiness (07/10/24) Weakness (07/10/24) Abnormal vestibular function study (07/10/24) History of falling (07/10/24) Visit Care Team Role Provider Type Connie Mehta MD Attending Provider Physician Family Provider Primary Care Provider Referring Provider Specialty: Family Practice Obstetrics Address: [address] [place] [address], [id number] Email: [email or web address] Plan Of Care PT-OP-B Current Condition Start: 07/10/24 10:31 Freq: Status: Active Protocol: Document 07/10/24 09:45 DCW (Rec: 07/10/24 10:39 DCW [id number]) Current Condition History of Current Condition Onset Date Six month history Current Complaints Positional vertigo, path deviation during gait, HTN History of Current Condition Pt is an 88 year old female complaining of a six month history of motion-induced vertigo. Pt had previously attempted to have a vestibular assessment last week, however evaluation was ended and pt was sent to the ER due to severe HTN (234/88), for which she was eventually hospitalized for one night. Comes back in today with a more reasonable BP of 160/68. Pt reports episodes last maybe five minutes. Symptoms are provoked by moving her head quickly and getting up at night to use the restroom. Does not that with recent changes to her blood pressure medications, many of her symptoms of dizziness and poor balance seem to have decreased or resolved altogether. Treatment Goals Patient/Caregiver Goals Improved stability PT-OP-T Assessment and Plan Start: 07/10/24 10:31 Freq: Status: Active Protocol: Document 07/10/24 09:45 DCW (Rec: 07/10/24 10:48 DCW [id number]) Physical Therapy Assessment Rehab Potential Rehabilitation Potential Excellent Evaluation Complexity Number of Personal Factors/Comorbidities 3 or More Number of Body Systems Impaired 4 or More Clinical Presentation at Evaluation Unstable Impairments Impairments Balance,Functional Activities, Functional Mobility,Gait, Vestibular Goals Two Impairment Positive right [place]-Hallpike test Mcc Goal (LTG) Pt to present with negative positional testing bilaterally in order to demonstrate successful treatment of BPPV. LTG Duration 09/07/24 One Impairment Pt experiences vertigo with positional changes Short Term Goal (STG) Pt to report ability to perform bed mobility with no instances of vertigo over one full week STG Duration 08/08/24 Assessment Summary Assessment During right Yousuf-Hallpike test , pt complained of vertigo and demonstrated up-beating, torsional nystagmus lasting approximately 15 seconds, consistent with diagnosis of right-sided posterior canal BPPV, canalithiasis-type. Pt was treated with a right-sided modified Vitor maneuver. Pt complained of symptoms in the first and third position, which is normally indicative of a successful treatment. Further positional testing was negative. Pt and her daughter were educated on BPPV, expectations for treatment, possible recurrence (BPPV has a ~50% recurrence rate in the five years following treatment ), and post-Vitor restrictions . Pt to return in ~1 week for a follow-up appointment, and intermittently afterward as indicated for treatment of BPPV. Due to pt complaints of path deviation during gait, may benefit from further balance testing if symptoms are not resolved with successful BPPV treatment. Physical Therapy Plan Frequency and Duration Frequency of Treatment 1-2x/week Plan of Care Start Date 07/10/24 Plan of Care End Date 09/07/24 Therapeutic Interventions Therapeutic Interventions Balance Training,Canalithic Repositioning,Gait Training, Home Exercise Program,Manual Therapy,Neuromuscular Re- education,Patient/Caregiver Education,Self-Care/Home Management,Therapeutic Activities,Therapeutic Exercises,Vestibular Rehabilitation Next Visit Focus/Plan Next Note Type Treatment Note Next Visit Plan Positional testing, CRM as indicated. Balance testing if symptoms persist Plan of Care Dates Plan of Care Start Date 07/10/24 Plan of Care End Date 09/07/24 Electronically Signed by: Orlando Baer, PT 07/10/24 1048 If you are in agreement with this Plan of Care, please return a signed and dated copy. I have reviewed this Plan of Care and certify that the skilled therapy services above are required to meet the patient?s needs. Physician Signature Date Printed Name and Credentials Clinical Instructor Signature Printed Name and Credentials
--- NOTE | 2024-07-14 12:43 | PT.OTN ---
Current Diagnoses Dizziness and giddiness (07/14/24) Weakness (07/14/24) Abnormal vestibular function study (07/14/24) History of falling (07/14/24) Physical Therapy Treatment Note PT-OP-A Visit Information Start: 07/10/24 10:31 Freq: Status: Active Protocol: Document 07/14/24 12:15 DCW (Rec: 07/14/24 12:43 DCW [id number]) Out-Patient Physical Therapy Visit Information Visit Information Visit Type Discharge Summary Visit Start Time 12:15 Visit Stop Time 12:35 Visit Number 2 Number of BRICK BURNER Visits 0 Evaluation Information Evaluation Date 07/10/24 PT-OP-B Current Condition Start: 07/10/24 10:31 Freq: Status: Active Protocol: Document 07/10/24 09:45 DCW (Rec: 07/10/24 10:39 DCW [id number]) Current Condition History of Current Condition Onset Date Six month history Current Complaints Positional vertigo, path deviation during gait, HTN History of Current Condition Pt is an 88 year old female complaining of a six month history of motion-induced vertigo. Pt had previously attempted to have a vestibular assessment last week, however evaluation was ended and pt was sent to the ER due to severe HTN (234/88), for which she was eventually hospitalized for one night. Comes back in today with a more reasonable BP of 160/68. Pt reports episodes last maybe five minutes. Symptoms are provoked by moving her head quickly and getting up at night to use the restroom. Does not that with recent changes to her blood pressure medications, many of her symptoms of dizziness and poor balance seem to have decreased or resolved altogether. Treatment Goals Patient/Caregiver Goals Improved stability PT-OP-C Subjective Start: 07/10/24 10:31 Freq: Status: Active Protocol: Document 07/14/24 12:15 DCW (Rec: 07/14/24 12:43 DCW [id number]) OP-PT Subjective Patient Comments Patient Comments Pt reports she has been feeling much better, is already very happy with the changes she has noticed. BP measured at begging of session , 152/70 PT-OP-O Vestibular Start: 07/10/24 10:31 Freq: Status: Active Protocol: Document 07/14/24 12:15 DCW (Rec: 07/14/24 12:43 DCW [id number]) Vestibular Assessment Positional Testing [place]-Hallpike Negative Left,Negative Right PT-OP-Q Treatments Start: 07/10/24 10:31 Freq: Status: Active Protocol: Document 07/14/24 12:15 DCW (Rec: 07/14/24 12:43 DC [id number]) Canalithic Repositioning BPPV Treatment Vitor Affected Canal(s) Right Posterior Reps x1 Comments Modified Vitor PT-OP-T Assessment and Plan Start: 07/10/24 10:31 Freq: Status: Active Protocol: Document 07/14/24 12:15 DCW (Rec: 07/14/24 12:43 [facility] [id number]) Physical Therapy Assessment Impairments Impairments Balance,Functional Activities, Functional Mobility,Gait, Vestibular Goals Two Impairment Positive right Yousuf-Hallpike test Mcfp Goal (LTG) Pt to present with negative positional testing bilaterally in order to demonstrate successful treatment of BPPV. LTG Duration Met One Impairment Pt experiences vertigo with positional changes Short Term Goal (STG) Pt to report ability to perform bed mobility with no instances of vertigo over one full week STG Duration 08/08/24 Assessment Summary Assessment Pt positional testing was entirely negative today. Pt did note that over the weekend , she thought she may have been slightly symptomatic when rolling in bed, so a Modified Vitor was performed. Pt no longer exhibiting symptoms of active BPPV, appropriate for discharge at this time. Pt noted understanding of potential recurrence, knows she would need a new referral if that were to occur. Physical Therapy Plan Frequency and Duration Frequency of Treatment 1-2x/week Plan of Care Start Date 07/10/24 Plan of Care End Date 09/07/24 Therapeutic Interventions Therapeutic Interventions Balance Training,Canalithic Repositioning,Gait Training, Home Exercise Program,Manual Therapy,Neuromuscular Re- education,Patient/Caregiver Education,Self-Care/Home Management,Therapeutic Activities,Therapeutic Exercises,Vestibular Rehabilitation Discharge Physical Therapy Discharge Reasons Goals Met Next Visit Focus/Plan Next Note Type Discharge Summary
== END 2024-07-14 14:05 | disposition home or self-care (01) ==
LOC: PHYS 12:15
PROVIDERS: Family Provider Student in an Organized Health Care Education/Training Program; PCP Student in an Organized Health Care Education/Training Program; Referring Provider Student in an Organized Health Care Education/Training Program; Visit Provider Student in an Organized Health Care Education/Training Program
DX: R53.1 Weakness (principal); Z91.81 History of falling; R94.121 Abnormal vestibular function study; R42 Dizziness and giddiness
CPT/HCPCS: 95992; 97140; 97163

== ENCOUNTER → 2024-09-25 14:45 | Outpatient (CLI) | payer MEDICARE, SELFPAY ==
[2024-07-01 17:09] VITALS: BMI 27.2
[2024-09-25 15:56] LABS: BUN Creatinine Ratio 23.7 (6-22); Blood Urea Nitrogen 23 mg/dL (7-17); Calcium 9.4 mg/dL (8.4-10.2); Carbon Dioxide 28 mmol/L (22-32); Chloride 105 mmol/L (98-107); Estimated Glomerular Filt Rate 56 mL/min (>60); Glucose 83 mg/dL (80-110); HEMOLYSIS < 15 (0-50); Potassium 4.5 mmol/L (3.4-5.1); Sodium 140 mmol/L (137-145)
== END ==
PROVIDERS: Family Provider Student in an Organized Health Care Education/Training Program; PCP Student in an Organized Health Care Education/Training Program; Referring Provider Internal Medicine Cardiovascular Disease; Visit Provider Internal Medicine Cardiovascular Disease
DX: I10 Essential (primary) hypertension (principal)
CPT/HCPCS: 36415; 80048

== ENCOUNTER 2025-05-22 07:22 | Day surgery (SDC) | payer MEDICARE, SELFPAY ==
[2024-07-01 17:09] VITALS: BMI 27.2
[2025-05-20 13:49] VITALS: BMI 26.3
[2025-05-22 08:03] VITALS: BP 196/77; PULSE 62; RESP 16; TEMP 36.6; O2SAT 98
[2025-05-22] MEDS: LACTATED RINGERS 1,000 ML 42 ML IV (08:12)
--- NOTE | 2025-05-22 08:48 | PM.PREOP ---
Pre-operative Note COVID-19 COVID-19 status: Not tested Interval Note History & Physical reviewed/Exam performed by Physician: Yes Changes to H&P: No ASA Class (for procedural sedation): II
--- NOTE | 2025-05-22 09:11 | PM.OP.EGD ---
Operative Date/Time/Diagnoses Date of procedure: 05/22/25 Time of procedure: 09:11 Pre-op diagnosis: Melena Post-op diagnosis: same Procedure & Clinicians Study performed: Esophagogastroduodenoscopy Same procedure(s) as scheduled: Yes Surgeon: Joey Dover Anesthesia Type: MAC +/- Procedure Notes Procedure in detail: Surgeon: Joey Dover MD Anesthesia: Awilda Aldana CRNA A timeout was performed. A bite blocked was placed. The patient was positioned in the left lateral decubitus position. Anesthesia was administered. The endoscope was inserted through the bite block and passed through the esophagus and stomach and into the duodenum. The duodenal mucosa appeared normal. No abnormalities were seen. The scope was withdrawn into the duodenal bulb and no abnormalities were seen. The scope was withdrawn into the stomach. No abnormalities were noted in the stomach. The scope was retroflexed and no abnormalities were seen.. The scope was withdrawn into the esophagus and no abnormalities were seen. The remainder of the esophagus was normal. The scope was withdrawn. The patient was awakened and brought to recovery. Sedation time: 9 minutes Findings: Normal examination Estimated Blood Loss: 0 Complications: none Post-procedure Disposition: PACU
[2025-05-22 09:13] VITALS: BP 158/68; PULSE 51; RESP 22; TEMP 36.3; O2SAT 92
[2025-05-22 09:20] VITALS: BP 158/67; PULSE 52; RESP 22
== END 2025-05-22 09:45 | disposition home or self-care (01) ==
PROVIDERS: Family Provider Student in an Organized Health Care Education/Training Program; PCP Student in an Organized Health Care Education/Training Program; Referring Provider Student in an Organized Health Care Education/Training Program; Visit Provider Surgery
PROC: 0DJ08ZZ Inspection of Upper Intestinal Tract, Via Natural or Artificial Opening Endoscopic (ICD-10-PCS; CPT 43235; principal; 2025-05-22 08:30)
DX: K92.1 Melena (principal)
CPT/HCPCS: 43235; J2704; J7120

== ENCOUNTER → 2025-06-09 10:22 | Outpatient (CLI) | payer MEDICARE, SELFPAY ==
[2024-07-01 17:09] VITALS: BMI 27.2
--- NOTE | 2025-06-09 10:23 | DI.RAD.S_ITS ---
PROCEDURE: XR FOOT LT MIN 3V INDICATIONS: pain 1 week, eufemia @ 1/2 Metacarpals TECHNIQUE: 3 views of the foot were acquired. COMPARISON: None. FINDINGS: Bones: No fractures or dislocations. No suspicious bony lesions. 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 Bipartite tibial/medial sesamoid. Soft tissues: No tibiotalar joint effusion. Achilles tendon appears normal. IMPRESSION: No acute bony abnormality. Dictated by: Grover Lord M.D. on 06/09/2025 at 12:26 Approved by: Grover Lord M.D. on 06/09/2025 at 12:27
[2025-06-09 12:15] LABS: Alanine Aminotransferase 21 IU/L (<35); Albumin 3.9 g/dL (3.5-5.0); Albumin Globulin Ratio 1.4 (1.0-2.8); Alkaline Phosphatase 81 U/L (38-126); Blood Urea Nitrogen 28 mg/dL (7-17); Calcium 9.2 mg/dL (8.4-10.2); Carbon Dioxide 27 mmol/L (22-32); Chloride 108 mmol/L (98-107); Estimated Glomerular Filt Rate 46 mL/min (>60); Globulin 2.7 g/dL (1.7-4.1); Glucose 98 mg/dL (70-99); HEMOLYSIS < 15 (0-50); Potassium 4.5 mmol/L (3.4-5.1); Sodium 140 mmol/L (137-145); Total Protein 6.6 g/dL (6.3-8.2); Uric Acid 6.3 mg/dL (2.5-6.2)
== END ==
PROVIDERS: Family Provider Student in an Organized Health Care Education/Training Program; PCP Student in an Organized Health Care Education/Training Program; Referring Provider Student in an Organized Health Care Education/Training Program; Visit Provider Physician Assistant
DX: M79.672 Pain in left foot (principal)
CPT/HCPCS: 36415; 73630; 80053; 84550; 85379; 85651